=== PATIENT | male | born 1955 | race Caucasian/White ===

== ENCOUNTER 2021-02-22 08:54 | Emergency (ER) | payer OTHER, SELFPAY ==
--- NOTE | ~2021-02-22 | XR_ITS ---
EXAMINATION: XR wrist RT min 3V DATE: 02/22/2021 09:13 INDICATION: Right wrist injury and pain and swelling. TECHNIQUE: 4 views of right wrist were obtained. COMPARISON: None. FINDINGS: There is a nondisplaced transverse fracture of distal radial metaphysis. There is an avulsi on fracture of the ulnar styloid. 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 IMPRESSION: 1. Nondisplaced transverse fracture of distal radial metaphysis. 2. Avulsion fracture of the ulnar styloid. Reviewed, dictated and finalized at location A.
[2021-02-22 09:03] VITALS: BP 151/62; PULSE 66; RESP 18; TEMP 36.1; O2SAT 100
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
[2021-02-22] MEDS: HYDROcodone/acetaminophen (*CRX) 5-325 MG TABLET 1 TAB PO (09:41)
[2021-02-22] MEDS: IBUPROFEN 600 MG TABLET PO (09:41)
== END 2021-02-22 10:00 | disposition home or self-care (01) ==
PROVIDERS: Emergency Provider Emergency Medicine; PCP Family Medicine
DX: S59.291A Other physeal fracture of lower end of radius, right arm, initial encounter for closed fracture (principal); S52.611A Displaced fracture of right ulna styloid process, initial encounter for closed fracture; V18.4XXA Pedal cycle driver injured in noncollision transport accident in traffic accident, initial encounter; Y93.55 Activity, bike riding
CPT/HCPCS: 29125; 73110; 99284; A4565; A9270

== ENCOUNTER 2024-02-16 05:53 | Day surgery (SDC) | payer MEDICARE, SELFPAY ==
[2024-01-10 08:15] VITALS: BMI 27.0
--- NOTE | 2024-02-15 14:49 | WPDANESEPPF ---
Anes - Initial Pre Proc Eval Procedure: Operation Date: 02/16/24 07:30 Proposed Procedures p Diagnostic Colonoscopy - Navjot Briceno MD Date/Time: 02/15/24 14:49 Surgeon: Navjot Briceno MD Pre Op Diagnosis: Personal History of Polyps Patient Data Age: 68 Gender: M Height: 1.83 m Weight: 90.265 kg Allergies Allergy/AdvReac Type Severity Reaction Status Date / Time NKDA Allergy Unknown none Uncoded 02/16/24 06:19 NKFA Allergy Unknown none Uncoded 02/16/24 06:19 Home Medications Medication Instructions Recorded Confirmed Type simvastatin 20 mg tablet See Rx Instructions .Route 06/26/21 02/16/24 Rx .COMPLEX #90 tabs Metamucil 1 tab-cap PO DIRECTED 02/02/24 02/16/24 History flaxseed 1 tab-cap PO DIRECTED 02/02/24 02/16/24 History multivitamin 1 tablet PO DAILY 02/02/24 02/16/24 History Patient hx anesthesia problems: none Family hx anesthesia problems: none Results Review: All pre-operative results and documents have been reviewed as part of the pre-operative evaluation. COUNT INCLUDES THE [facility] Past Medical History Medical History Fracture of right distal radius Fracture of right ulnar styloid Retinal tear (~06/26/19) Right eye Subdural hematoma Oct 2011 Surgical History Surgical History H/O colonoscopy (~09/2013) History of orchiectomy (~1975) S/P LASIK surgery Family History Family History Sibling Carcinoma of colon Other Family history of elevated blood lipids No family history of cardiovascular disease Social History Social History Smoking status: Never smoker Alcohol intake: current Alcohol use details: 2 drinks per day Living arrangements: with family Occupation/Education: retired Gender identity (if verbalized by the patient): Male Anes - Eval Final PreProcedure Day of Procedure 02/15/24 14:49 Patient weight: overweight Heart: regular rate and rhythm Lungs: clear to auscultation Airway: Mallampati scale class II Neurological: alert and oriented Last oral intake: >/= 8 hours ASA classification: III Emergent: no Anesthetic plan: proceed Anesthesia type and monitoring: general GIVS and standard monitoring Results Review: All pre-operative results and documents have been reviewed as part of the pre-operative evaluation. Informed Consent: The patient's anesthetic plan and its attendant risks and benefits were discussed with the patient/family/POA. Questions were solicited and answers provided to the satisfaction of the patient/family/POA.
[2024-02-16 06:22] VITALS: BP 147/77; PULSE 65; RESP 12; TEMP 36.6; O2SAT 99
[2024-02-16] MEDS: LACTATED RINGERS 1,000 ML 150 ML IV CONT (06:31)
--- NOTE | 2024-02-16 07:16 | PM.HPGS ---
History of Present Illness History of Present Illness Consent: Risks, benefits, and alternatives have been discussed and questions answered. Patient agrees to proceed with procedure. Chief complaint: Personal History of Polyps Narrative: Valente Lozano is a 68 year old male presents for screening colonoscopy. Patient has a history of colon polyps. Most recently had an adenomatous polyp removed in 2013. Five years ago no polyps were identified. Patient's family history is significant that his brother, father, grandfather had colon cancer. Several of them at young ages. Patient reports that his current weight appetite and bowel movements are normal. He does have a prior history of prostate cancer he received radiation therapy and he some sense of urgency subsequently. Currently advised to be on high-fiber diet. He has had no bleeding or weight loss. Patient returns for follow-up colonoscopy and should consider this at least every 5 years. Review of Systems Review of Systems: All systems reviewed & are unremarkable except as noted in HPI and below PMFSH Past Medical History Medical History Fracture of right distal radius Fracture of right ulnar styloid Retinal tear (~06/26/19) Right eye Subdural hematoma Oct 2011 Surgical History Surgical History H/O colonoscopy (~09/2013) History of orchiectomy (~1975) S/P LASIK surgery Family History Family History Sibling Carcinoma of colon Other Family history of elevated blood lipids No family history of cardiovascular disease Social History Social History Smoking status: Never smoker Alcohol intake: current Alcohol use details: 2 drinks per day Living arrangements: with family Occupation/Education: retired Gender identity (if verbalized by the patient): Male Meds Home Medications and Allergies Home Medications Medication Instructions Recorded Confirmed Type simvastatin 20 mg tablet See Rx Instructions .Route 06/26/21 02/16/24 Rx .COMPLEX #90 tabs Metamucil 1 tab-cap PO DIRECTED 02/02/24 02/16/24 History flaxseed 1 tab-cap PO DIRECTED 02/02/24 02/16/24 History multivitamin 1 tablet PO DAILY 02/02/24 02/16/24 History Allergies Allergy/AdvReac Type Severity Reaction Status Date / Time NKDA Allergy Unknown none Uncoded 02/16/24 06:19 NKFA Allergy Unknown none Uncoded 02/16/24 06:19 Vital Signs Vital Signs - 24 hr 02/16/24 06:22 Temperature 98 F Pulse Rate 65 Respiratory Rate 12 Blood Pressure 147/77 H Pulse Oximetry 99 Oxygen Delivery Room Air Exam Narrative: Physical exam reveals patient to be alert. Signs stable. HEENT exam is unremarkable. Is anicteric. Lungs are clear to auscultation and to percussion. Heart is without murmur or extra sounds. Abdomen bowel sounds are present soft nontender with no organomegaly. Digital external rectal exam is normal. Assessment and Plan Assessment and plan (1) Family hx of colon cancer: Code(s): Z80.0 - Family history of malignant neoplasm of digestive organs Status: Acute Assessment and Plan: Patient has a strong family history of several family members that her close relatives with colon cancer. Plan for surveillance colonoscopy at least every 5 years. (2) History of colon polyps: Code(s): Z86.010 - Personal history of colonic polyps Status: Acute Assessment and Plan: Patient has had adenomatous colon polyps. Most recently in 2013. Continue surveillance at 5 year intervals.
[2024-02-16 07:48] VITALS: BP 96/68; PULSE 63; RESP 14; O2SAT 95
[2024-02-16 07:58] VITALS: BP 103/70; PULSE 64; RESP 14; O2SAT 97
[2024-02-16 08:08] VITALS: BP 109/78; PULSE 61; RESP 16; O2SAT 96
--- NOTE | 2024-02-16 14:09 | WPDANESPN ---
Anes - Prog Note Post-Op Date/Time: 02/16/24 14:09 Cardiovascular status: normal Respiratory status: normal Airway patency: baseline Mental status: baseline Post-Op hydration status: normal Vital Signs: Last Vital Signs Temp 36.6 C 02/16/24 06:22 Pulse 61 02/16/24 08:08 Resp 16 02/16/24 08:08 BP 109/78 02/16/24 08:08 Pulse Ox 96 02/16/24 08:08 O2 Del Method Room Air 02/16/24 08:08 Pain Score (VAS): 0 I/O: Intake & Output 02/15/24 02/16/24 02/16/24 23:59 07:59 15:59 Intake Total 400 50 Balance 400 50 Post-procedural complaints: none Patient Feedback: Patient satisfied with anesthetic care. Other Findings: Patient vital signs back to baseline. Patient denies nausea and vomiting. Patient's pain under control. Patient OK for discharge.
== END 2024-02-16 08:12 | disposition home or self-care (01) ==
PROVIDERS: PCP Hospitalist; Visit Provider Internal Medicine Gastroenterology
PROC: 0DJD8ZZ Inspection of Lower Intestinal Tract, Via Natural or Artificial Opening Endoscopic (ICD-10-PCS; CPT 45378; principal; 2024-02-16 07:30)
DX: Z86.010 Personal history of colon polyps (principal); Z80.0 Family history of malignant neoplasm of digestive organs; D12.2 Benign neoplasm of ascending colon
CPT/HCPCS: 45385

== ENCOUNTER 2024-02-16 07:00 | Outpatient (NON) | payer MEDICARE, SELFPAY | END 2024-02-16 07:01 | disposition home or self-care (01) | LOC: ANHLAB 02-17 08:16 | PROVIDERS: PCP Hospitalist; Visit Provider Internal Medicine Gastroenterology | DX: Z12.11 Encounter for screening for malignant neoplasm of colon (principal); Z80.0 Family history of malignant neoplasm of digestive organs | CPT/HCPCS: 88305 ==

== ENCOUNTER 2024-06-25 07:26 | Outpatient (CLI) | payer MEDICARE, SELFPAY ==
--- NOTE | ~2024-06-25 | PE_ITS ---
EXAMINATION: PET_PETPSMAST_PT DATE: 06/25/2024 10:23 INDICATION: Prostate cancer. TECHNIQUE: 5.5 mCi of Ga-68 gozetotide was administered intravenously. Low dose computed tomography ( CT) images were acquired from the base of the brain to the proximal thighs for attenuation correction and anatomic localization. Automated exposure control was employed. Dose-length product (DLP) was 11 25 mGy-cm. Positron emission tomography (PET) images were acquired in the same distribution. COMPARISON: None FINDINGS: Head/neck: Left parotid gland is absent, which may be severe fatty atrophy or surgical change. There are no pathologically enlarged lymph nodes. Chest: There is a lipoma in the right posterior thorax. There is no pneumonia or pleural effusion. Th e heart size is normal. No pericardial effusion. There are coronary artery calcifications. Abdomen/pelvis/proximal thighs: There are cysts in the liver measuring up to 2.0 cm. The spleen, gall bladder, pancreas, adrenal glands, and kidneys are normal. The prostate is mildly enlarged. There are brachytherapy seeds in the prostate. There is no increased activity in the prostate. There is diffus e wall thickening of bladder, likely from chronic outlet obstruction. There are no dilated loops of b owel. The appendix is normal. There are no pathologically enlarged lymph nodes. There is no free intr aperitoneal fluid. There are likely changes of right orchiectomy. There is a benign bone island in le ft ilium. IMPRESSION: 1. Mildly enlarged prostate containing brachytherapy seeds. No increased activity to suggest malignan cy. Reviewed, dictated and finalized at location A. IMPRESSION: 1. Mildly enlarged prostate containing brachytherapy seeds. No increased activi ty to suggest malignancy.
== END 2024-06-25 07:27 | disposition home or self-care (01) ==
PROVIDERS: PCP Hospitalist; Visit Provider Urology
DX: C61 Malignant neoplasm of prostate (principal)
CPT/HCPCS: 78815; A9596

== ENCOUNTER 2024-12-21 09:10 | Outpatient (CLI) | payer MEDICARE, SELFPAY ==
--- OUTSIDE RECORDS SUMMARY | 2024-12-21 09:47 | XMS_ITS | Clinical Summary ---
Author Organization [facility] [employer] Address [address] [place] [address] Care Team Providers Care Mill Tender Warm Up Name Role Phone Antonio Rose MD Primary Care Provider [phone] Source Comments [facility] [employer],non-owned Affiliates and Associated Physician Practices is amultiple site organization consisting of ambulatory clinics and hospital sitesin [place], [place], [place] and [place]. This disclosure is being madepursuant to the Care Everywhere program and may not contain all information available regarding this patient. Last updated 18.[facility] [employer] Social History Tobacco Use Types Packs/Day Years Used Date Smoking Tobacco: Never Assessed Sex and Gender Information Value Date Recorded Sex Assigned at Not on file Gender Identity Not on file Sexual Orientation Not on file Plan of Treatment Health Maintenance Due Date Last Done Comments COLOGUARD (AGES 45-75) - COL ON CA SCREENING 1954 COLON MONITORING 1954 COLONOSCOPY - COLON CA SCREENING 1954 CT COLONOGRAPHY - COLON CA SCREENING 1954 Colorectal Cancer Screening 1954 FIT - COLON CA SCREENING 1954 FLEX SIG - COLON CA SCREENING 1954 LIPID TESTING 1954 MEDICARE AWV 12 MONTHS 1954 HEPATITIS C SCREENING 08/22/1972 DTAP/TDAP/TD VACCINES (1 - Tdap) 1973 PNEUMOCOCCAL VACCINE 50+ (1 of 1 - PCV) 2004 ZOSTER VACCINE (1 of 2) 2004 COVID-19 VACCINE ( - 2023-2 5 season) 2024 INFLUENZA VACCINE (#1) 2024 DEPRESSION SCREENING 09/26/2024 Respiratory Syncytial Virus (RSV) Vaccine Pt: or over 60 yrs (1 - 1-dose 75+ series) 2029 HEPATITIS B VACCINE Aged Out No longe r eligible based on patient's age to complete this topic HIB VACCINE Aged Out No longer eligi ble based on patient's age to complete this topic HPV VACCINE Aged Out No longer eligi ble based on patient's age to complete this topic MENINGOCOCCAL (Group B) VACC INE SHARED DECISION-MAKING Aged Out No longer eligibl e based on patient's age to complete this topic MENINGOCOCCAL GROUPS A/C/Y/W VACCINE Aged Out No longer eligible b ased on patient's age to complete this topic Care Teams Mill Tender Warm Up Relationship Specialty Start Date End Date Antonio Rose MD [address] [place] [address] PCP - General 08/12/20
--- OUTSIDE RECORDS SUMMARY | 2024-12-21 09:47 | XMS_ITS | Encounter Summary ---
Author Organization [facility] Address [address] [place] [address] Care Team Providers Care Ibm Bpm Developer Name Role Phone Antonio Rose MD Primary Care Provider [phone] Encounter Details Date Type Department Care Team (Late st Contact Info) Description 08/13/2020 Lab Requisition [facility] Derm[facility] Lab [address] [place] [id number] Ha Le MD [address] [place] [address] Social History Tobacco Use Types Packs/Day Years Used Date Smoking Tobacco: Never Assessed Sex and Gender Information Value Date Recorded Sex Assigned at Not on file Gender Identity Not on file Sexual Orientation Not on file documented as of this encounter Plan of Treatment Not on file documented as of this encounter Procedures Procedure Name Priority Date/Time Associated Diagnosis Comments DERMATOPATHOLOGY Routine 08/11/2020 12:0 0 AM DIET CLERK documented in this encounter Results * DERMATOPATHOLOGY (08/11/2020 12:00 AM DIET CLERK) Case Report Dermatopathology Report Case: [id number] Authorizing Provider: Ha eL MD Collected: 08/11/2020 12:00 AM Ordering Location: [facility]erm[facility] Lab Received: 08/13/2020 06:12 AM Pathologist: Reina Mario MD Specimens: A) - Skin, right ala B) - Skin, right medial clavicle 0 4:47 PM DIET CLERK DERMATOPATHOLOGY LABORATORY Final Diagnosis Specimen A. SKIN, right ala: HYPERPLASTIC (HYPERTROPHIC) ACTINIC KERATOSIS WITH ASSOCIATED HUMAN PAPILLOMA VIRUS CHANGES; EXTENDING TO THE BASE OF THE SPECIMEN (L57.0) (see microscopic description and comment) Specimen B. SKIN, right medial clavicle: BASAL CELL CARCINOMA, NODULAR TYPE (C44.519) 0 4:47 PM [facility] DERMATOPATHOLOGY LABORATORY Clinical History A: Basal cell carcinoma vs squamous cell carcinoma vs other. Path # [id number]. B: Basal cell carcinoma vs squamou scell carcinoma vs other. Path # [id number] 0 4:47 PM [facility] DERMATOPATHOLOGY LABORATORY Gross Description Specimen A: Received is one formalin filled container labeled with the patient's name and designated right ala. The specimen consists of a shave biopsy measuring [id number]. Jar 0. Specimen B: Received is one formalin filled container labeled with the patient's name and designated right medial clavicle. The specimen consists of a shave biopsy measuring [id number]. Jar 0. 0 4:47 PM [facility] DERMATOPATHOLOGY LABORATORY Microscopic Description Specimen A. SKIN, right ala: There is hyperkeratosis alternating with parakeratosis. There is epidermal hyperplasia with disorderly maturation of keratinocytes with nuclear pleomorphism confined to the lower half of the epidermis. This process extends to the base of the specimen. COMMENT: A squamous cell carcinoma cannot be ruled out. Additional deeper sections were obtained and reviewed. Specimen B. SKIN, right medial clavicle: Within the dermis there are aggregates of basaloid cells with a high nuclear to cytoplasmic ratio and peripheral palisading. 0 4:47 PM [facility] DERMATOPATHOLOGY LABORATORY Disclaimer An external and internal positive and negative controls are appropriate for the histochemical, immunohistochemical and immunofluorescence stain(s) in this case (if any), except where stated explicitly. The performance characteristics of the stain(s) cited in this report were developed and its performance characteristic determined by the Dermatopathology Laboratory at [facility], directed by Dr. Ismael Mario. These tests need not be, and therefore are not, approved by the [place] Food and Drug Administration. The tests are used for clinical purposes. Billing Codes Specimen Charges Stain Charges 44645 04362 1 1 0 4:47 PM [facility] DERMATOPATHOLOGY [facility]ORATORY Embedded Images 0 4:47 PM [facility] DERMATOPATHOLOGY LABORATORY Pathology/Cytology TISSUE SPECIMEN FROM SKIN / Unknown 08/11/2020 08/13/2020 6:12 AM DIET CLERK Miscellaneous samples (specimen) TISSUE SPECIMEN FROM SKIN / Unknown 08/11/2020 08/13/2020 6:12 AM DIET CLERK Ha Le MD LAB - PATHOLOGY/CYTO LOGY ORDERABLES DERMATOPATHOLOGY LABORATORY [facility] - Department of Dermatology [facility] Medicine [address] [place] [address], [address] [phone] documented in this encounter Visit Diagnoses Not on filedocumented in this encounter Care Teams Ibm Bpm Developer Relationship Specialty Start Date End Date Antonio Rose MD [address] [place] [address] PCP - General 08/12/20 documented as of this encounter
--- OUTSIDE RECORDS SUMMARY | 2024-12-21 09:47 | XMS_ITS | Encounter Summary ---
Author Organization [facility] Address [address] [address] Care Team Providers Care Senior Sas Developer Name Role Phone Antonio Rose MD Primary Care Provider [phone] Encounter Details Date Type Department Care Team (Late st Contact Info) Description 04/08/2021 Lab Requisition [facility] DermPath Lab [address] [place] [address] Ha Le MD [address] [address] Social History Tobacco Use Types Packs/Day Years Used Date Smoking Tobacco: Never Assessed Sex and Gender Information Value Date Recorded Sex Assigned at Not on file Gender Identity Not on file Sexual Orientation Not on file documented as of this encounter Plan of Treatment Not on file documented as of this encounter Procedures Procedure Name Priority Date/Time Associated Diagnosis Comments DERMATOPATHOLOGY Routine 04/06/2021 3:33 AM CDT documented in this encounter Results * DERMATOPATHOLOGY (04/06/2021 3:33 AM CDT) Case Report Dermatopathology Report Case: [id number] Authorizing Provider: Ha Le MD Collected: 04/06/2021 03:33 AM Ordering Location: [facility] DermPath Lab Received: 04/08/2021 05:40 AM Pathologist: Reina Mario MD Specimen: Skin, right crown 4:52 PM CDT DERMATOPATHOLOGY LABORATORY Final Diagnosis Specimen A. SKIN, right crown: HYPERPLASTIC (HYPERTROPHIC) ACTINIC KERATOSIS (L57.0) OVERLYING CUTANEOUS HORN (L85.8) 07/15/202 1 4:52 PM CDT DERMATOPATHOLOGY LABORATORY Clinical History AK vs BCCA vs SCCA. Path # [id number]. 4:52 PM CDT DERMATOPATHOLOGY LABORATORY Gross Description Specimen A: Received is one formalin filled container labeled with the patient's name and designated right crown. The specimen consists of a shave biopsy measuring [id number]. Jar 0. 4:52 PM CDT DERMATOPATHOLOGY LABORATORY Microscopic Description Specimen A. SKIN, right crown: There is hyperkeratosis alternating with parakeratosis. There is epidermal hyperplasia with disorderly maturation of keratinocytes with nuclear pleomorphism confined to the lower half of the epidermis. There is a column of marked compact hyperkeratosis. 4:52 PM CDT DERMATOPATHOLOGY LABORATORY Disclaimer An external and internal positive and negative controls are appropriate for the histochemical, immunohistochemical and immunofluorescence stain(s) in this case (if any), except where stated explicitly. The performance characteristics of the stain(s) cited in this report were developed and its performance characteristic determined by the Dermatopathology Laboratory at [facility], directed by Dr. Ismael Mario. These tests need not be, and therefore are not, approved by the [place] Food and Drug Administration. The tests are used for clinical purposes. Billing Codes Specimen Charges Stain Charges 83259 1 4:52 PM CDT DERMATOPATHOLOGY LABORATORY Embedded Images 4:52 PM CDT DERMATOPATHOLOGY LABORATORY Pathology/Cytolo gy TISSUE SPECIMEN FROM SKIN / Unknown 04/06/2021 3:33 AM CDT 04/08/2021 5:40 AM CDT Ha Le MD LAB - PATHOLOGY/CYTO LOGY ORDERABLES DERMATOPATHOLOGY LABORATORY [facility] - Department of Dermatology [address], [address] [phone] documented in this encounter Visit Diagnoses Not on filedocumented in this encounter Care Teams Senior Sas Developer Relationship Specialty Start Date End Date Antonio Rose MD [address] [place] [address] PCP - General 08/12/20 documented as of this encounter
--- OUTSIDE RECORDS SUMMARY | 2024-12-21 09:47 | XMS_ITS | Referral Summary ---
Author Organization [facility] Address [address] [place] [address] Care Team Providers Care Energy Efficiency Specialist Name Role Phone Winsome Garcia MD Primary Care Pro vider Encounters Date Type Department Care Team Description 11/15/2024 1:21 PM LINOLEUM LAYER - 11/15/2024 11:59 PM LINOLEUM LAYER Hospital Encounter [facility] - PET [address] [place] [address] Prostate cancer (HCC) Discharge Disposition: Discharge to home or self care 11/15/2024 1:21 PM LINOLEUM LAYER - 11/15/2024 11:59 PM LINOLEUM LAYER Hospital Encounter [facility] - PET [address] [place] [address] Discharge Disposition: Discharge to home or self care from Last 3 Months Allergies No known active allergies Medications multivitamin capsule Take 1 capsule by mouth daily Active flaxseed oiL 1,000 mg capsule Take by mouth Active psyllium, aspartame, SF (METAMUCIL SF) 3.4 gram packet Take 1 packet by mouth daily Active simvastatin (ZOCOR) 20 mg tabletIndications:M ixed hyperlipidemia TAKE 1 TABLET BY MOUTH EVERY DAY 90 tablet 1 4 Active Active Problems Problem Noted Date Diagnosed Date Pre-diabetes 07/10/2024 Assessment & Plan (07/10/2024 1:14 PM CDT): Lab Results Component Value Date HGBA1C 6.0 (H) 07/04/2024 Uncontrolled/new diagnosis Discussed diet/exercise Recheck before next appointment Encounter for annual wellnes s visit (AWV) in Medicare patient 05/17/2022 Assessment & Plan (07/10/2024 1:44 PM CDT): Reviewed PMH & PHQ Screening PHQ-2 Total Score (If total score is 3 or more points, staff should administer the PHQ-9): 0 Hearing/vision screening reviewed, referrals placed as needed Fall risk reviewed Reviewed medications and supplements Specialists: urology, core composer machine tender, & optho no evidence of cognitive impairment HCM: orders placed as needed Assessment & Plan (06/03/2023 8:46 AM CDT): Reviewed PMH & PHQ Screening PHQ-2 Total Score (If total score is 3 or more points, staff should administer the PHQ-9): 0 Hearing/vision screening reviewed, referrals placed as needed Fall risk reviewed Reviewed medications and supplements Specialists: urology, radiation oncology, core composer machine tender, & optho no evidence of cognitive impairment HCM: orders placed as needed Assessment & Plan (05/17/2022 1:28 PM CDT): Reviewed PMH & PHQ Screening PHQ-2 Total Score (If total score is 3 or more points, staff should administer the PHQ-9): 0 Hearing/vision screening reviewed, referrals placed as needed Fall risk reviewed Reviewed medications and supplements Specialists: urology, core composer machine tender, orthopedics & optho no evidence of cognitive impairment HCM: orders placed as needed Elevated glucose 11/17/2021 Assessment & Plan (06/03/2023 8:39 AM CDT): stable Assessment & Plan (11/26/2022 3:26 PM LINOLEUM LAYER): Rechekc a1c Assessment & Plan (05/17/2022 12:59 PM CDT): Lab Results Component Value Date HGBA1C 5.7 (H) 05/11/2022 Improved Continue to monitor History of vitreous hemorrhage of right eye 01/2019 Assessment & Plan (07/31/2019 12:35 PM LINOLEUM LAYER): F/u from ED on 07/23/19. Slowly improving though still dense vitreous (vit) heme centrally - vision stable from last visit - superotemporal tear with adequate laser surrounding, no subretinal fluid around tear or retinal detachment - recommend follow-up in 4 weeks to assess how vitreous (vit) heme is settling - pt has scheduled appointment with media assistant in early August (about one month). Plans to continue following up there. - will RTC with us as needed Mixed hyperlipidemia 12/24/2011 Assessment & Plan (07/10/2024 1:44 PM CDT): LDL uncontrolled >100 Motivated to work on diet continue statin Recheck before next appointment Assessment & Plan (01/02/2024 1:52 PM CDT): LDL controlled <100 Continue statin Assessment & Plan (06/03/2023 8:39 AM CDT): Stable Continue statin Assessment & Plan (11/26/2022 5:15 PM LINOLEUM LAYER): Recheck lipids Continue statin pending results Discussed diet Assessment & Plan (05/17/2022 12:58 PM CDT): Reviewed lipids, LDL mildly above goal Discussed diet/exercise Continue simvastatin Continue to monitor Assessment & Plan (11/17/2021 1:39 PM LINOLEUM LAYER): Lipids at goal LFT within normal limits Continue simvastatin Prostate cancer Assessment & Plan (07/10/2024 1:45 PM CDT): Following with urology Assessment & Plan (01/02/2024 1:52 PM CDT): Following with urology & radiation oncology Assessment & Plan (06/03/2023 8:45 AM CDT): Following with urology & radiation oncology Assessment & Plan (11/26/2022 3:27 PM LINOLEUM LAYER): Following with urology Assessment & Plan (05/17/2022 12:57 PM CDT): Following with urology Assessment & Plan (11/17/2021 1:36 PM LINOLEUM LAYER): Following with urology Arthritis of big toe Assessment & Plan (01/02/2024 1:52 PM CDT): stable Assessment & Plan (06/03/2023 8:46 AM CDT): stable Assessment & Plan (11/26/2022 3:26 PM LINOLEUM LAYER): Following with orthopedics Assessment & Plan (05/17/2022 12:58 PM CDT): Following with orthopedics Assessment & Plan (11/17/2021 1:37 PM LINOLEUM LAYER): Stable Following with orthopedics History of skin cancer Assessment & Plan (07/10/2024 1:13 PM CDT): Following with core composer machine tender Assessment & Plan (01/02/2024 1:52 PM CDT): Following with core composer machine tender Assessment & Plan (06/03/2023 8:39 AM CDT): Following with core composer machine tender Assessment & Plan (11/26/2022 3:26 PM LINOLEUM LAYER): Following with core composer machine tender Assessment & Plan (05/17/2022 12:57 PM CDT): Following with core composer machine tender Assessment & Plan (11/17/2021 1:37 PM LINOLEUM LAYER): Following with derm Resolved Problems Problem Noted Date Diagnosed Date Resolved Date Subdural hematoma (CMS/HCC) 11/22/2011 11/16/2021 Immunizations Immunization Administration Dates Next Due Influenza, Quad, Adjuvantate d, Intramuscular 09/05/2023,07/07/2021 Influenza, Quadrivalent, Hig h Dose, Preservative Free, Intrr 06/19/2022,06/26/2020 Influenza, Quadrivalent, Spl it, Intramuscular 06/25/2019 Influenza, Quadrivalent, Spl it, Preservative Free, Intramuscular 06/25/2019,07/11/2018 Influenza, Trivalent, High D ose, Split, Preservative Free, Intramuscular 07/10/2024 Influenza, Trivalent, IM (MDV) 06/29/2017,2013,06/26/2013 Influenza, Trivalent, Preser vative Free, Intramuscular 06/01/2017,06/23/2016,06/04/2015 Influenza, Unspecified 06/26/2021 Pfizer SARS-CoV-2 Monovalent Vaccination (12+ Yrs) PURPLE 07/31/2021,12/17/2020,11/19/2020 Pneumococcal Conjugate PCV 13 08/19/2020 Pneumococcal Polysaccharide PPV23 05/17/2022 Social History Tobacco Use Types Packs/Day Years Used Date Smoking Tobacco: Never Cigarettes Smokeless Tobacco: Never Tobacco Cessation:Counseling Given: Not Answered AUDIT-C Answer Date Recorded Q1: How often do you have a drink containing alcohol? 4 or more times a week 07/10/2024 Average Number of Drinks Not on file 024 Frequency of Binge Drinking Not on file 06/26 PHQ-2 Answer Date Recorded PHQ-2 Total Score (If total score is 3 or more points, staff should administer the PHQ-9) 0 07/10/2024 Sex and Gender Information Value Date Recorded Sex Assigned at Not on file Legal Sex Male 9:49 AM LINOLEUM LAYER Gender Identity Not on file Sexual Orientation Not on file Last Filed Vital Signs Vital Sign Reading Time Taken Comments Blood Pressure 130/78 07/10/2024 1:03 PM CDT Pulse 68 07/10/2024 1:03 PM CDT Temperature 36.1 C (97 F) 07/10/2024 1:03 PM CDT Respiratory Rate 18 07/10/2024 1:03 PM CDT Oxygen Saturation 98% 07/10/2024 1:03 PM CDT Inhaled Oxygen Concentration - - Weight 89.9 kg (198 lb 3.2 oz) 07/10/2024 1:03 P M CDT Height 182.9 cm (6') 07/10/2024 1:03 PM CDT Body Mass Index 26.88 07/10/2024 1:03 PM CDT Plan of Treatment Not on file Procedures Procedure Name Priority Date/Time Associated Diagnosis Comments PET/CT PROSTATE CANCER PSMA SKULL TO THIGH Schedule Routine, Read Routine (OP Routine) 11/15/2024 4:17 PM LINOLEUM LAYER Prostate cancer (HCC) HEPATITIS C ANTIBODY Routine 07/04/2024 7:16 AM CDT Need for hepatitis C screening test Annual physical exam HM COLONOSCOPY Routine 02/16/2024 from Last 3 Months or Most Recently Relevant to Health Maintenance Results * PET/CT Prostate Cancer PSMA Skull to Thigh (11/15/2024 4:17 PM LINOLEUM LAYER) Anatomical Region Laterality Modality N/A Positron Emissio n Tomography (PET) 11/15/2024 4:27 PM LINOLEUM LAYER Impressions 11/15/2024 5:35 PM LINOLEUM LAYER 1. Multiple intensity PSMA expressing osseous metastatic lesions involving the right humeral neck, right parietal calvarium, cervical thoracic spine, right 1st rib, right coracoid process, and right iliac. 2. No evidence of extraosseous PSMA expressing disease. Dictated by: Ranjeet Bowman MD The radiology attending physician has personally reviewed this study, and had reviewed and/or edited this written report and agrees with it. Electronically signed by: Romana Villegas MD, Ph.D Narrative 11/15/2024 5:35 PM LINOLEUM LAYER EXAMINATION: PSMA-PET/CT DATE OF STUDY: 11/15/2024 SCANNER: [facility] [employer] (SQ1). This is a high-resolution scanner, which can result in higher SUVs (and even detection of previously unrecognized small lesions) compared to older scanners. RADIOPHARMACEUTICAL: 10.587 mCi F-18 DCFPyL (Piflufolastat) i.v. Injection site: Right antecubital fossa HISTORY: 69-year-old man with prostate cancer diagnosed in 2019 (Broadway score of 6) status post treatment under active surveillance from 7334-1663, with rising PSA, most recently 38.8 ng/mL. The study is requested for restaging of documented biochemically recurrent prostate cancer. Subsequent treatment strategy. TECHNIQUE: After intravenous administration of tracer, noncontrast CT images were obtained for attenuation correction and for fusion with emission PET images to allow for anatomical localization of PET findings. Emission PET images were then obtained. The study was interpreted on the Lettuce workstation. The total scanned area was mid thighs to skull vertex. Images of the body were obtained starting 69 minutes after injection of tracer. REFERENCE TISSUE MAXIMUM SUVs: Parotid gland 16.1; Liver 6.1; Blood pool 1.9 Focal PSMA tracer uptake is graded as follows: * Faint: above background to blood pool * Mild: above blood pool to liver * Moderate: above liver to salivary glands * Intense: similar to or above salivary glands COMPARISON: PET/CT dated 03/07/2023. FINDINGS: Prostate/Prostate bed: Fiducial markers are present within the prostate. No abnormal tracer uptake seen. Regional lymph nodes: No abnormal tracer uptake seen. Extra-pelvic lymph nodes: No abnormal tracer uptake seen. Bone: There are several osseous lesions throughout the imaged axial and appendicular skeleton with associated intense uptake. For reference, there is a sclerotic lesion within the right humeral neck with intense uptake (image 80). There is a lytic involving the right parietal calvarium (image 18). A sclerotic lesion involving the posterior C1 vertebral body (image 59). Additional sclerotic lesions involving the right 1st rib and, T5 vertebral body and posterior elements, right coracoid process, and right iliac bone. Visceral: No abnormal tracer uptake seen. Additional CT findings: Dependent atelectasis within the lung bases. Cyst within the left hemiliver. Diverticulosis without evidence of diverticulitis. Degenerative changes of the spine. Procedure Note Romana Millan MD PhD - 11/15/2024 EXAMINATION: PSMA-PET/CT DATE OF STUDY: 11/15/2024 SCANNER: [facility] [employer] (SQ1). This is a high-resolution scanner, which can result in higher SUVs (and even detection of previously unrecognized small lesions) compared to older scanners. RADIOPHARMACEUTICAL: 10.587 mCi F-18 DCFPyL (Piflufolastat) i.v. Injection site: Right antecubital fossa HISTORY: 69-year-old man with prostate cancer diagnosed in 2019 (Ashley score of 6) status post treatment under active surveillance from 1382-5167, with rising PSA, most recently 38.8 ng/mL. The study is requested for restaging of documented biochemically recurrent prostate cancer. Subsequent treatment strategy. TECHNIQUE: After intravenous administration of tracer, noncontrast CT images were obtained for attenuation correction and for fusion with emission PET images to allow for anatomical localization of PET findings. Emission PET images were then obtained. The study was interpreted on the [employer] workstation. The total scanned area was mid thighs to skull vertex. Images of the body were obtained starting 69 minutes after injection of tracer. REFERENCE TISSUE MAXIMUM SUVs: Parotid gland 16.1; Liver 6.1; Blood pool 1.9 Focal PSMA tracer uptake is graded as follows: * Faint: above background to blood pool * Mild: above blood pool to liver * Moderate: above liver to salivary glands * Intense: similar to or above salivary glands COMPARISON: PET/CT dated 03/07/2023. FINDINGS: Prostate/Prostate bed: Fiducial markers are present within the prostate. No abnormal tracer uptake seen. Regional lymph nodes: No abnormal tracer uptake seen. Extra-pelvic lymph nodes: No abnormal tracer uptake seen. Bone: There are several osseous lesions throughout the imaged axial and appendicular skeleton with associated intense uptake. For reference, there is a sclerotic lesion within the right humeral neck with intense uptake (image 80). There is a lytic involving the right parietal calvarium (image 18). A sclerotic lesion involving the posterior C1 vertebral body (image 59). Additional sclerotic lesions involving the right 1st rib and, T5 vertebral body and posterior elements, right coracoid process, and right iliac bone. Visceral: No abnormal tracer uptake seen. Additional CT findings: Dependent atelectasis within the lung bases. Cyst within the left hemiliver. Diverticulosis without evidence of diverticulitis. Degenerative changes of the spine. IMPRESSION: 1. Multiple intensity PSMA expressing osseous metastatic lesions involving the right humeral neck, right parietal calvarium, cervical thoracic spine, right 1st rib, right coracoid process, and right iliac. 2. No evidence of extraosseous PSMA expressing disease. Dictated by: Ranjeet Bowman MD The radiology attending physician has personally reviewed this study, and had reviewed and/or edited this written report and agrees with it. Electronically signed by: Romana Villegas MD, Ph.D us Urbano Kent MD IMG PET PROCEDURES Final Re sult * Hepatitis C antibody Blood (07/04/2024 7:16 AM CDT) Hep C Ab Nonreactive Nonreactive Comment: Antibodies to HCV not detected. Does NOT exclude the possibility of recent exposure to HCV. Current interpretive data was last revised on 22 Interpretive Data Nonreactive: Antibodies to HCV not detected. Does NOT exclude the possibility of recent exposure to HCV. Equivocal: Equivocal for HCV antibodies. Supplemental molecular testing will be automatically performed to determine infection status in accordance with current CDC screening recommendations. Reactive: Positive for HCV antibodies. This may represent current or past HCV infection. Supplemental molecular testing will be automatically performed to determine current infection status in accordance with current CDC screening recommendations. Interpretive data was last revised on 2019. Blood 07/04/2024 7:16 AM CDT 07/04/2024 12:51 PM CDT Winsome Garcia MD LAB MICROBIOLOGY - GENERAL ORDERABLES Final Result [id number] [address] [facility] Department [place] [address] * HM COLONOSCOPY (02/16/2024) Historical Provider HEALTH MAINTENANCE Final Result from Last 3 Months or Most Recently Relevant to Health Maintenance Insurance MEDICARE [facility] MEDICARE [facility] MEDICARE AARP Care Teams Energy Efficiency Specialist Relationship Specialty Start Date End Date Winsome Garcia MD PCP - General Family Medicine 11/16/21
--- OUTSIDE RECORDS SUMMARY | 2024-12-21 09:47 | XMS_ITS | Encounter Summary ---
Author Organization [facility] Healthcare Address [address] [place] [address] Care Team Providers Care Healthcare Administrative Assistant Name Role Phone Antonio Rose MD Primary Care Provider [phone] Winsome Garcia MD Primary Care Pro vider Encounter Details Date Type Department Care Team (Latest Contact Info) Description 07/23/2019 Ophth Exam Ophthalmology Poncho Singleton MD [address] [place] [address] Social History Tobacco Use Types Packs/Day Years Used Date Smoking Tobacco: Never Sex and Gender Information Value Date Recorded Sex Assigned at Not on file Legal Sex Male 9:49 AM [employer]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 Gender Identity Not on file Sexual Orientation Not on file documented as of this encounter Plan of Treatment Not on file documented as of this encounter Visit Diagnoses Not on filedocumented in this encounter Eye Exam Visual Acuity Right eye Left eye Near sc 20/50-1 20/20 Tonometry (9:54 AM) Right eye Left eye Pressure 6 10 Pupils Dark Light Shape React APD Right eye 4 2 Round Brisk None Left eye 4 2 Round Brisk None Visual [place] Right eye Left eye Full Full Dilation Both eyes: 1% Tropicamide, 2 .5% Phenylephrine @ 9:54 AM External Exam Right eye Left eye External Normal Normal Slit Lamp Exam Right eye Left eye Lids/Lashes Normal Normal Conjunctiva/Sclera White and quiet White and aime et Cornea Clear Clear Anterior Chamber Deep, formed Deep, formed Iris Round and reactive Round and estrella ctive Lens trace NS, trace CS trace NS, tra ce CS Vitreous dense central vit heme Normal Fundus Exam Right eye Left eye Disc hazy view but sharp margins, vis ible around heme Normal C/D Ratio 0.2 0.3 Macula hazy view but appears flat and a ttached Normal Vessels bridging vessel involved in tear superotemporally Normal Periphery pre-retinal heme connor ally. Superotemporal tear with surrounding laser CRS temporally Care Teams Healthcare Administrative Assistant Relationship Specialty Start Date End Date Antonio Rose MD [address] [place] [address] PCP - General 01/10/18 11/15/21 Winsome Garcia MD [address] [place] [address] PCP - General Family Medicine 11/16/21 documented as of this encounter
--- OUTSIDE RECORDS SUMMARY | 2024-12-21 09:47 | XMS_ITS | Clinical Summary ---
Author Organization [facility] Address [address] [place] [address] Care Team Providers Care Coding Quality Coordinator Name Role Phone Winsome Garcia MD Primary Care Pro vider Allergies No known active allergies Medications multivitamin [...] reviewed Reviewed medications and supplements Specialists: urology, qa manager, & optho no evidence of cognitive impairment HCM: orders placed as needed Assessment & Plan (06/03/2023 8:46 AM CDT): Reviewed PMH & FH PHQ Screening PHQ-2 Total Score (If total score is 3 or more points, staff should administer the PHQ-9): 0 Hearing/vision screening reviewed, referrals placed as needed Fall risk reviewed Reviewed medications and supplements Specialists: urology, radiation oncology, qa manager, & optho no evidence of cognitive impairment HCM: orders placed as needed Assessment & Plan (05/17/2022 1:28 PM CDT): Reviewed PMH & FH PHQ Screening PHQ-2 Total Score (If total score is 3 or more points, staff should administer the PHQ-9): 0 Hearing/vision screening reviewed, referrals placed as needed Fall risk reviewed Reviewed medications and supplements Specialists: urology, qa manager, orthopedics & optho no evidence of cognitive impairment HCM: orders placed as needed Elevated glucose 11/17/2021 Assessment & Plan (06/03/2023 8:39 AM CDT): stable Assessment & Plan (11/26/2022 3:26 PM BEE RAISER): Rechekc a1c Assessment & Plan (05/17/2022 12:59 PM CDT): Lab Results Component Value Date HGBA1C 5.7 (H) 05/11/2022 Improved Continue to monitor History of vitreous hemorrhage of right eye 01/2019 Assessment & Plan (07/31/2019 12:35 PM BEE RAISER): F/u from ED on 07/23/19. Slowly improving though still dense vitreous (vit) heme centrally - vision stable from last visit - superotemporal tear with adequate laser surrounding, no subretinal fluid around tear or retinal detachment - recommend follow-up in 4 weeks to assess how vitreous (vit) heme is settling - pt has scheduled appointment with senior vice president in early August (about one month). Plans [...] statin Assessment & Plan (11/26/2022 5:15 PM BEE RAISER): Recheck lipids Continue statin pending results Discussed diet Assessment & Plan (05/17/2022 12:58 PM CDT): Reviewed lipids, LDL mildly above goal Discussed diet/exercise Continue simvastatin Continue to monitor Assessment & Plan (11/17/2021 1:39 PM BEE RAISER): Lipids at goal LFT within normal limits Continue simvastatin Prostate cancer Assessment & Plan (07/10/2024 1:45 PM CDT): Following with urology Assessment & Plan (01/02/2024 1:52 PM CDT): Following with urology & radiation oncology Assessment & Plan (06/03/2023 8:45 AM CDT): Following with urology & radiation oncology Assessment & Plan (11/26/2022 3:27 PM BEE RAISER): Following with urology Assessment & Plan (05/17/2022 12:57 PM CDT): Following with urology Assessment & Plan (11/17/2021 1:36 PM BEE RAISER): Following with urology Arthritis of big toe Assessment & Plan (01/02/2024 1:52 PM CDT): stable Assessment & Plan (06/03/2023 8:46 AM CDT): stable Assessment & Plan (11/26/2022 3:26 PM BEE RAISER): Following with orthopedics Assessment & Plan (05/17/2022 12:58 PM CDT): Following with orthopedics Assessment & Plan (11/17/2021 1:37 PM BEE RAISER): Stable Following with orthopedics History of skin cancer Assessment & Plan (07/10/2024 1:13 PM CDT): Following with qa manager Assessment & Plan (01/02/2024 1:52 PM CDT): Following with qa manager Assessment & Plan (06/03/2023 8:39 AM CDT): Following with qa manager Assessment & Plan (11/26/2022 3:26 PM BEE RAISER): Following with qa manager Assessment & Plan (05/17/2022 12:57 PM CDT): Following with qa manager Assessment & Plan (11/17/2021 1:37 PM BEE RAISER): Following with derm Resolved Problems Problem Noted Date Diagnosed Date Resolved Date Subdural hematoma (CMS/HCC) 11/22/2011 11/16/2021 Encounters Date Type Department Care Team Description 11/15/2024 1:21 PM BEE RAISER - 11/15/2024 11:59 PM BEE RAISER Hospital Encounter [facility] - PET [address] [place], [place] [address]e [address] [place] [address] Discharge Disposition: Discharge to home or self care 11/15/2024 1:21 PM BEE RAISER - 11/15/2024 11:59 PM BEE RAISER Hospital Encounter [facility] - PET [address] [place], [place] [address] [address] 8 [place] [address] Prostate cancer (HCC) Discharge Disposition: Discharge to home or self care from Last 3 Months Immunizations Immunization Administration Dates Next Due Influenza, [...] PCV 13 08/19/2020 Pneumococcal Polysaccharide PPV23 05/17/2022 Surgical History Surgery Date Site/Laterality Comments BRAIN SURGERY 10/27/2011 - 11/24/2011 VASECTOMY 09/26/1985 - 09/25/1986 Medical History Medical History Date Comments Status post laser cataract surgery of right eye SDH (subdural hematoma) (HCC) Prostate cancer (HCC) Hyperlipidemia Family History Medical History Relation Name Comments Cancer Brother Diogo Lozano Cancer Father Ronnie Lozano Hearing loss Father Ronnie Lozano Heart attack Father Ronnie Lozano Cancer Maternal Grandmother Malcom Finch Alzheimer's disease Mother Veila Lozano Colon cancer Other 1 Adenocarcinoma Of The Large Intestine - (Added by TW Conv) Alzheimer's disease Other 2 Alzheime r's Disease - (Added by TW Conv) Hyperlipidemia Other 3 Hypercholeste rolemia - (Added by TW Conv) Relation Name Status Comments Brother Diogo Lozano Father Ronnie Lozano (Age 95) Maternal Grandmother Malcom Finch Mother Velia Lozano Alive Other 1 Other 2 Other 3 Social History Tobacco Use Types Packs/Day Years [...] on file Legal Sex Male 9:49 AM BEE RAISER Gender Identity Not on file Sexual Orientation Not on file Obstetrics History Last Filed Vital Signs Vital Sign Reading [...] 07/10/2024 1:03 PM CDT Plan of Treatment Health Maintenance Due Date Last Done Comments DTaP/Tdap/Td Vaccine (1 - Tdap) 1965 Zoster Vaccine (1 of 2) 1973 Covid-19 Vaccine (5 - 2023-2 5 season) 2024 06/28/2022, 07/31/2021, 12/17/2020, Additional history exists Depression Screening 07/10/2025 07/10/2024, 06/03/2023, 05/17/2022, Additional history exists Fall Risk Assessment 07/10/2025 07/10/2024, 06/03/2023, 05/17/2022, Additional history exists Well Visit 65+ 07/10/2025 07/10/2024, 0904/2023, 05/17/2022 Colon Cancer Screening-Colonoscopy 02/15/2029 02/16/2024, 02/16/2024, 10/05/2013 Pneumococcal vaccine 65+ Completed 05/17/2022, 07/28 Colon Cancer Screening-CT Colonography Discontinued 02/16/2024, 02/16/2024, 10/05/2013 Colon Cancer Screening-DNA Stool Discontinued 02/16/2024, 02/16/2024, 10/05/2013 Colon Cancer Screening-FIT Discontinued 02/15, 02/16/2024, 10/05/2013 Colon Cancer Screening-Sigmoidoscopy Discontinued 02/16/2024, 02/16/2024, 10/05/2013 Hepatitis B Screening Completed 07/04/2024 Hepatitis C Screening Completed 07/04/2024 Influenza Vaccine Completed 07/10/2024, , 06/19/2022, Additional history exists Procedures Procedure Name Priority Date/Time Associated Diagnosis Comments PET/CT PROSTATE CANCER PSMA SKULL TO THIGH Schedule Routine, Read Routine (OP Routine) 11/15/2024 4:17 PM BEE RAISER Prostate cancer (HCC) HEPATITIS C ANTIBODY Routine 07/04/2024 7:16 AM CDT Need for hepatitis C screening test Annual physical exam HM COLONOSCOPY Routine 02/16/2024 from Last 3 Months or Most Recently Relevant to Health Maintenance Results * PET/CT Prostate Cancer PSMA Skull to Thigh (11/15/2024 4:17 PM BEE RAISER) Anatomical Region Laterality Modality N/A Positron Emissio n Tomography (PET) 11/15/2024 4:27 PM BEE RAISER Impressions 11/15/2024 5:35 PM BEE RAISER 1. Multiple intensity PSMA expressing osseous metastatic [...] Villegas MD, Ph.D Narrative 11/15/2024 5:35 PM BEE RAISER EXAMINATION: PSMA-PET/CT DATE OF STUDY: 11/15/2024 SCANNER: [facility] Lead[employer] (SQ1). This is a high-resolution scanner, which can result in higher SUVs (and even detection of previously unrecognized small lesions) compared to older scanners. RADIOPHARMACEUTICAL: 10.587 mCi F-18 DCFPyL (Piflufolastat) i.v. Injection site: Right antecubital fossa HISTORY: 69-year-old man with prostate cancer diagnosed in 2019 (Ashley score of 6) status post treatment under active surveillance from 6159-9275, with rising PSA, most recently 38.8 ng/mL. The study is requested for restaging of documented biochemically recurrent prostate cancer. Subsequent treatment strategy. TECHNIQUE: After intravenous administration of tracer, noncontrast CT images were obtained for attenuation correction and for fusion with emission PET images to allow for anatomical localization of PET findings. Emission PET images were then obtained. The study was interpreted on the [employer] workstation. The total scanned area was mid [...] EXAMINATION: PSMA-PET/CT DATE OF STUDY: 11/15/2024 SCANNER: [facility] [employer] (SQ1). This is a high-resolution scanner, which can result in higher SUVs (and even detection of previously unrecognized small lesions) compared to older scanners. RADIOPHARMACEUTICAL: 10.587 mCi F-18 DCFPyL (Piflufolastat) i.v. Injection site: Right antecubital fossa HISTORY: 69-year-old man with prostate cancer diagnosed in 2019 ([place] score of 6) status post treatment under active surveillance from 0339-7857, with rising PSA, most recently 38.8 ng/mL. The study is requested for restaging of documented biochemically recurrent prostate cancer. Subsequent treatment strategy. TECHNIQUE: After intravenous administration of tracer, noncontrast CT images were obtained for attenuation correction and for fusion with emission PET images to allow for anatomical localization of PET findings. Emission PET images were then obtained. The study was interpreted on the [employer] workstation. The total scanned area was mid [...] Electronically signed by: Romana Villegas MD, Ph.D Urbano Kent MD IMG PET PROCEDURES Final [...] LAB MICROBIOLOGY - GENERAL ORDERABLES Final Result [facility] [address] [facility] Department [place] [address] * HM COLONOSCOPY (02/16/2024) Greta Joseph MD HEALTH MAINTENANCE Final Result from Last 3 Months or Most Recently Relevant to Health Maintenance Insurance [facility]ARE [facility]ARE [facility] Care Teams Coding Quality Coordinator Relationship Specialty Start Date End Date Winsome Garcia MD PCP - General Family Medicine 11/16/21
--- OUTSIDE RECORDS SUMMARY | 2024-12-21 09:47 | XMS_ITS | Clinical Summary ---
Author Organization [facility] Tayler rob Christopherrebekah Address [address] [place] [address] Care Team Providers Care Alteration Manager Name Role Phone Unavailable Primary Care Provider Unavailabl e Allergies No known active allergies Medications simvastatin (ZOCOR) 20 mg tablet Take 20 mg by mouth daily. 4 Active Nubeqa 300 mg tablet Take 300 mg by mouth daily at bedtime. 5 Active predniSONE (DELTASONE) 5 mg tablet Take 1 Tablet (5 mg) by mouth 2 times daily with meals. 60 Tablet 10 5 Active lidocaine-pril ocaine (EMLA) 2.5-2.5 % Cream Apply to affected area see administration instructions. 30 Gram 1 5 Active ondansetron (ZOFRAN) 8 mg Tablet Take 1 Tablet (8 mg) by mouth every 8 hours as needed for Nausea/Emesis. 30 Tablet 4 5 Active Active Problems No known active problems Encounters Date Type Department Care Team Description 12/18/2024 External Device Data STL ABSTRACTION Provider, Abstract 12/18/2024 External Device Data STL ABSTRACTION Provider, Abstract 12/18/2024 External Device Data STL ABSTRACTION Provider, Abstract 12/12/2024 10:30 AM CDT Office Visit [facility] - [place] [address] [place] [address] Tank Waldrop MD Prostate cancer (CMS/HCC) (Primary Dx) from Last 3 Months Family History Medical History Relation Name Comments Colon Cancer Brother No Known Problems Child 1 No Known Problems Child 2 Colon Cancer Father Heart Disease Father Prostate Cancer Father No Known Problems Mother Relation Name Status Comments Brother Child 1 Alive Child 2 Alive Father Mother Social History Tobacco Use Types Packs/Day Years Used Date Smoking Tobacco: Never Smokeless Tobacco: Never Alcohol Use Standard Drinks/Week Comments Yes 0 (1 standard drink = 0.6 oz pur e alcohol) Occasionally Sex and Gender Information Value Date Recorded Sex Assigned at Not on file Legal Sex Male 3:35 PM WALL AND FLOOR TILER Gender Identity Not on file Sexual Orientation Not on file Last Filed Vital Signs Vital Sign Reading Time Taken Comments Blood Pressure 132/85 12/12/2024 10:29 AM CDT Pulse 87 12/12/2024 10:29 AM CDT Temperature 36.3 C (97.3 F) 12/12/2024 10:29 AM CDT Respiratory Rate 16 12/12/2024 10:2 9 AM CDT Oxygen Saturation 95% 12/12/2024 10: 29 AM CDT Inhaled Oxygen Concentration - - Weight 88.8 kg (195 lb 12.8 oz) 025 10:29 AM CDT Height 182.9 cm (6') 12/12/2024 10:29 AM CDT Body Mass Index 26.56 12/12/2024 10:29 AM CDT Plan of Treatment Health Maintenance Due Date Last Done Comments Pre-Diabetes and Diabetes Screening 1954 DTAP/TDAP/TD VACCINES (1 - Tdap) 1973 Traditional Medicare (O) A nnual Wellness Visit 1973 COLORECTAL SCREENING 1999 Colorectal Cancer Screening 1999 FIT-DNA Q 3 years 1999 FIT/FOBT Q 1 year 1999 Flex Sig/CT Colonography Q 5 years 1999 ZOSTER VACCINE (1 of 2) 2004 COVID-19 Vaccine (2023-2 5 season) 2024 07/31/2021, 12/17/2020, 11/19/2020 RSV VACCINE (60+ or ) (1 - 1-dose 75+ series) 2029 PNEUMOCOCCAL VACCINE 50+ YEARS Completed 05/17/2022 , 08/19/2020 INFLUENZA VACCINE Completed 07/10/2024, , 06/19/2022, Additional history exists Insurance MEDICARE PART A AND B [facility] [id number]
[2024-12-21 09:55] LABS: Basophils Percent Auto 0.9 % (0.2-1.2); Eosinophils Absolute Auto 0.1 K/mm3 (0-0.3); Eosinophils Percent Auto 1.5 % (0-4.4); Hemoglobin 14.1 g/dL (14.0-18.0); Immature Granulocyte Absolute 0.01 K/mm3 (0.00-0.031); Immature Granulocyte Percent A 0.3 % (0-0.5); Lymphocytes Absolute Auto 0.76 K/mm3 (0.9-3.2); Lymphocytes Percent Auto 23.2 % (18.3-44.2); Mean Corpuscular HGB Conc 33.6 g/dl (32-36); Mean Corpuscular Hemoglobin 30.7 pg (26-34); Mean Corpuscular Volume 91.5 fl (80-100); Mean Platelet Volume 8.7 fl (7.4-10.4); Monocytes Absolute Auto 0.4 K/mm3 (0.1-0.6); Monocytes Percent Auto 11.6 % (2.6-8.5); Neutrophils Absolute Auto 2.1 K/mm3 (1.3-6.7); Neutrophils Percent Auto 62.5 % (45.5-73.1); Platelet Count Result 216 k/mm3 (150-375); Red Blood Count 4.59 M/mm3 (4.6-6.20); Red Cell Distribution Width 11.8 % (11.5-14.5); White Blood Count 3.3 K/mm3 (4.5-10.0)
[2024-12-21 10:20] LABS: Prothrombin Time 13.3 Seconds (11.1-14.7)
[2024-12-21 10:21] LABS: Partial Thromboplastin Time 25.9 Seconds (22.3-36.8)
== END 2024-12-21 09:11 | disposition home or self-care (01) ==
LOC: ANHSURGERY 09:15
PROVIDERS: PCP Hospitalist; Visit Provider Surgery
DX: C61 Malignant neoplasm of prostate (principal); Z01.818 Encounter for other preprocedural examination
CPT/HCPCS: 36415; 85025; 85610; 85730

== ENCOUNTER 2024-12-21 09:22 | Outpatient (CLI) | payer MEDICARE, SELFPAY ==
[2024-12-24 15:38] LABS: PSA, Free 0.3 ng/mL; Percent Free Prostate Spec Ag 4 % (calc) (>25)
== END 2024-12-21 09:23 | disposition home or self-care (01) ==
PROVIDERS: PCP Hospitalist; Visit Provider Urology
DX: C61 Malignant neoplasm of prostate (principal)
CPT/HCPCS: 36415; 84153; 84154

== ENCOUNTER 2024-12-26 00:51 | Day surgery (SDC) | payer MEDICARE, SELFPAY ==
--- NOTE | 2024-12-14 10:31 | PC.NURSE ---
Report to the Outpatient Waiting Room, entrance under the green pavilion located off [facility], at time __11 AM____ on date _12/26/24 . Planned Procedure Time: __1:00PM .? Time changes happen often and if your time is changed the preop area will call you the afternoon before. - You and your visitor will be asked to self-screen and do not enter if you have any COVID symptoms. Please call surgeon if you need to reschedule. - A mask is optional within the hospital at this time. Patients may have clear liquids (water, carbonated beverages, clear teas, apple juice) until 3 hours prior to surgery ( 10 AM) with a maximum of 20 ounces. - No food from midnight until time of surgery and no smoking, or chewing tobacco (or any form of nicotine). No chewing gum, candy or mints. - Take only the following medications with a SIP of water on the morning of surgery: NONE DO NOT STOP ANY OF YOUR OTHER PRESCRIPTION MEDICATIONS PRIOR TO SURGERY EXCEPT THE FOLLOWING Hold all vitamins and supplements for 3 days per anesthesiologist. LAST DOSE 12/22/24 Medications to discontinue per physician NONE Please no make-up, nail icelandic, hairspray, perfume, deodorant, or body powder the day of surgery.? No jewelry (including any body piercings) or valuables the day of surgery, leave them at home.? Please take a shower or bath the night before, or the morning of, surgery with an antibacterial soap.? Wear comfortable, loose fitting clothing.? Children are encouraged to wear pajamas. - Jewelry must be removed prior to entering the operating room.? Rings and piercings that are not removed may be cut off. - The hospital will not accept responsibility for valuables.? - Please leave all valuables, including medications, at home the day of surgery. If you are going home after surgery, a licensed funeral limousine driver must drive you home.? - NO public transportation without another adult if you receive anesthesia. - We recommend that an adult stay with you for 24 hours following discharge. - We also recommend that you do not drive, make important decision, drink alcoholic beverages, or take any drugs that were not prescribed by your health care provider for at least 24 hours after your discharge time. For Pediatric surgeries, we recommend two adults accompany the child home. Follow any additional instructions given to you from your surgeon. Telephone instructions given to __PATIENT and asked if any additional questions and then verbalized understanding. Patient advised to call surgeon office or pre surgery nurse liaison [phone] if any additional questions.
[2024-12-14 12:07] VITALS: BMI 25.7
--- NOTE | ~2024-12-26 | XR_ITS ---
EXAMINATION: XR fl guide central line place DATE: 12/26/2024 13:48 INDICATION: Port catheter insertion TECHNIQUE: Single fluoroscopic image of the left upper chest was obtained during procedure performed by Dr. Jerome. Radiologist was not present for the imaging or procedure. The amount of fluoroscopy teddy e used during this procedure was 0.1 minutes. Total DAP was 0.0276 mGym^2. COMPARISON: None. FINDINGS: Left subclavian central venous port catheter in expected position. The distal aspect of the catheter extends beyond the margin of the field of imaging. Visualized left lung is clear with no ev ident pneumothorax. IMPRESSION: 1. Fluoroscopy utilized during placement of a left subclavian central venous port catheter which is i n in expected position. See procedure note for further detail. Reviewed, dictated and finalized at location A. IMPRESSION: 1. Fluoroscopy utilized during placement of a left subclavian central venous po rt catheter which is in in expected position. See procedure note for further de tail.
--- NOTE | ~2024-12-26 | XR_ITS ---
XR chest port-a-cath/central 12/26/2024 14:21 Indication: Post insertion of portacatheter Procedure: AP portable chest Comparison: No prior studies for comparison. Findings: Portacatheter tip in the SVC. Cardiomegaly. Moderate thoracic spondylosis with dextroscolio sis. No focal air space disease, pulmonary edema, pleural effusion or suspected pneumothorax. No acut e osseous abnormality. Impression: 1: No acute cardiopulmonary disease. Reviewed, dictated and finalized at location A. Impression: 1: No acute cardiopulmonary disease.
--- OUTSIDE RECORDS SUMMARY | 2024-12-26 00:56 | XMS_ITS | Encounter Summary ---
Author Organization [facility] Address [address] [place] [address] Care Team Providers Care Global Analytics Head Name Role Phone Antonio Rose MD Primary Care Provider [phone] Encounter Details Date Type Department Care Team (Late st Contact Info) Description 04/08/2021 Lab Requisition [facility] DermPath Lab [address] [place] [address] Ha Le MD [address] [place] [address] Social History Tobacco Use Types Packs/Day [...] AM CDT) Case Report Dermatopathology Report Case: [id number] Authorizing Provider: Ha Le MD Collected: 04/06/2021 03:33 AM Ordering Location: [facility] DermPath Lab Received: 04/08/2021 05:40 AM Pathologist: Reina Mario MD Specimen: Skin, right crown 4:52 PM CDT DERMATOPATHOLOGY LABORATORY Final Diagnosis Specimen A. SKIN, right crown: HYPERPLASTIC (HYPERTROPHIC) ACTINIC KERATOSIS (L57.0) OVERLYING CUTANEOUS HORN (L85.8) 07/15/202 1 4:52 PM CDT DERMATOPATHOLOGY LABORATORY Clinical History AK vs BCCA vs SCCA. Path # [id number]. 4:52 PM CDT DERMATOPATHOLOGY LABORATORY Gross Description Specimen A: Received is one formalin filled container labeled with the patient's name and designated right crown. The specimen consists of a shave biopsy measuring 2a1h0gd. Jar 0. 4:52 PM CDT DERMATOPATHOLOGY LABORATORY [...] characteristic determined by the Dermatopathology Laboratory at [facility], directed by Dr. Ismael Mario. These tests need not be, and therefore are not, approved by the [place] Food and Drug Administration. The tests are used for clinical purposes. Billing Codes Specimen Charges Stain Charges 49353 1 4:52 PM CDT DERMATOPATHOLOGY LABORATORY Embedded Images 4:52 PM CDT DERMATOPATHOLOGY LABORATORY Pathology/Cytolo gy TISSUE SPECIMEN FROM SKIN / Unknown 04/06/2021 3:33 AM CDT 04/08/2021 5:40 AM CDT Ha Le MD LAB - PATHOLOGY/CYTO LOGY ORDERABLES DERMATOPATHOLOGY LABORATORY [facility] - Department of Dermatology [address], [address] [phone] documented in this encounter Visit Diagnoses Not on filedocumented in this encounter Care Teams Global Analytics Head Relationship Specialty Start Date End Date Antonio Rose MD [address] [place] [address] PCP - General 08/12/20 documented as of this encounter
--- OUTSIDE RECORDS SUMMARY | 2024-12-26 00:56 | XMS_ITS | Encounter Summary ---
Author Organization [facility] Address [address] [place] [address] Care Team Providers Care In Store Banker Name Role Phone Antonio Rose MD Primary Care Provider [phone] Encounter Details Date Type Department Care Team (Late st Contact Info) Description 08/13/2020 Lab Requisition [facility] DermPath Lab [address] [place] [id number] Ha Le MD [address] [address] Social History Tobacco Use Types Packs/Day [...] Comments DERMATOPATHOLOGY Routine 08/11/2020 12:0 0 AM MANAGEMENT DEPARTMENT CHAIR documented in this encounter Results * DERMATOPATHOLOGY (08/11/2020 12:00 AM MANAGEMENT DEPARTMENT CHAIR) Case Report Dermatopathology Report Case: [id number] Authorizing Provider: Ha Le MD Collected: 08/11/2020 12:00 AM Ordering Location: [facility] DermPath Lab Received: 08/13/2020 06:12 AM Pathologist: Reina Mario MD Specimens: A) - Skin, right ala B) - Skin, right medial clavicle 0 4:47 PM MANAGEMENT DEPARTMENT CHAIR DERMATOPATHOLOGY LABORATORY Final Diagnosis Specimen A. SKIN, right ala: HYPERPLASTIC (HYPERTROPHIC) ACTINIC KERATOSIS WITH ASSOCIATED HUMAN PAPILLOMA VIRUS CHANGES; EXTENDING TO THE BASE OF THE SPECIMEN (L57.0) (see microscopic description and comment) Specimen B. SKIN, right medial clavicle: BASAL CELL CARCINOMA, NODULAR TYPE (C44.519) 0 4:47 PM [facility] DERMATOPATHOLOGY LABORATORY Clinical History A: Basal cell carcinoma vs squamous cell carcinoma vs other. Path # [id number]. B: Basal cell carcinoma vs squamou scell carcinoma vs other. Path # [id number] 0 4:47 PM [facility] DERMATOPATHOLOGY LABORATORY Gross Description Specimen A: Received is one formalin filled container labeled with the patient's name and designated right ala. The specimen consists of a shave biopsy measuring 9e6h0ch. Jar 0. Specimen B: Received is one formalin filled container labeled with the patient's name and designated right medial clavicle. The specimen consists of a shave biopsy measuring 2l1g0md. Jar 0. 0 4:47 PM [facility] DERMATOPATHOLOGY LABORATORY Microscopic Description Specimen [...] ratio and peripheral palisading. 0 4:47 PM [facility] DERMATOPATHOLOGY LABORATORY Disclaimer An external and internal positive and negative controls are appropriate for the histochemical, immunohistochemical and immunofluorescence stain(s) in this case (if any), except where stated explicitly. The performance characteristics of the stain(s) cited in this report were developed and its performance characteristic determined by the Dermatopathology Laboratory at [facility], directed by Dr. Ismael Mario. These tests need not be, and therefore are not, approved by the [place] Food and Drug Administration. The tests are used for clinical purposes. Billing Codes Specimen Charges Stain Charges 16155 97887 1 1 0 4:47 PM [facility] DERMATOPATHOLOGY LABORATORY Embedded Images 0 4:47 PM [facility] DERMATOPATHOLOGY LABORATORY Pathology/Cytology TISSUE SPECIMEN FROM SKIN / Unknown 08/11/2020 08/13/2020 6:12 AM MANAGEMENT DEPARTMENT CHAIR Miscellaneous samples (specimen) TISSUE SPECIMEN FROM SKIN / Unknown 08/11/2020 08/13/2020 6:12 AM MANAGEMENT DEPARTMENT CHAIR Ha eL MD LAB - PATHOLOGY/CYTO LOGY ORDERABLES DERMATOPATHOLOGY LABORATORY [facility] - Department of Dermatology [facility] Medicine [address] [place] [address], [address] [phone] documented in this encounter Visit Diagnoses Not on filedocumented in this encounter Care Teams In Store Banker Relationship Specialty Start Date End Date Antonio Rose MD [address] [place] [address] PCP - General 08/12/20 documented as of this encounter
--- OUTSIDE RECORDS SUMMARY | 2024-12-26 00:56 | XMS_ITS | Clinical Summary ---
Author Organization [facility] Address [address] [place] [address] Care Team Providers Care Hardwood Faller Name Role Phone Antonio Rose MD Primary Care Provider [phone] Source Comments [facility],non-owned Affiliates and Associated Physician Practices is amultiple site organization consisting of ambulatory clinics and hospital sitesin [place], [place], [place] and [place]. This disclosure is being madepursuant to the Care Everywhere program and may not contain all information available regarding this patient. Last updated 18.[facility] Social History Tobacco Use Types Packs/Day Years [...] age to complete this topic Care Teams Hardwood Faller Relationship Specialty Start Date End Date Antonio Rose MD [address] [place] [address] PCP - General 08/12/20
--- OUTSIDE RECORDS SUMMARY | 2024-12-26 00:56 | XMS_ITS | Referral Summary ---
Author Organization [facility], formerly [facility] Address [address] [place] [address] Care Team Providers Care Sock Liner Name Role Phone Winsome Garcia MD Primary Care Pro vider Encounters Date Type Department Care Team Description 11/15/2024 1:21 PM ANIMATOR - 11/15/2024 11:59 PM ANIMATOR Hospital Encounter [facility] - [address] [place] [address] Prostate cancer (HCC) Discharge Disposition: Discharge to home or self care 11/15/2024 1:21 PM ANIMATOR - 11/15/2024 11:59 PM ANIMATOR Hospital Encounter [facility] - [address] [place] [address] Discharge Disposition: Discharge to home or self [...] reviewed Reviewed medications and supplements Specialists: urology, cable reeler, & optho no evidence of cognitive impairment HCM: orders placed as needed Assessment & Plan (06/03/2023 8:46 AM CDT): Reviewed PMH & PHQ Screening PHQ-2 Total Score (If total score is 3 or more points, staff should administer the PHQ-9): 0 Hearing/vision screening reviewed, referrals placed as needed Fall risk reviewed Reviewed medications and supplements Specialists: urology, radiation oncology, cable reeler, & optho no evidence of cognitive impairment HCM: orders placed as needed Assessment & Plan (05/17/2022 1:28 PM CDT): Reviewed PMH & PHQ Screening PHQ-2 Total Score (If total score is 3 or more points, staff should administer the PHQ-9): 0 Hearing/vision screening reviewed, referrals placed as needed Fall risk reviewed Reviewed medications and supplements Specialists: urology, cable reeler, orthopedics & optho no evidence of cognitive impairment HCM: orders placed as needed Elevated glucose 11/17/2021 Assessment & Plan (06/03/2023 8:39 AM CDT): stable Assessment & Plan (11/26/2022 3:26 PM ANIMATOR): Rechekc a1c Assessment & Plan (05/17/2022 12:59 PM CDT): Lab Results Component Value Date HGBA1C 5.7 (H) 05/11/2022 Improved Continue to monitor History of vitreous hemorrhage of right eye 01/2019 Assessment & Plan (07/31/2019 12:35 PM ANIMATOR): F/u from ED on 07/23/19. Slowly improving though still dense vitreous (vit) heme centrally - vision stable from last visit - superotemporal tear with adequate laser surrounding, no subretinal fluid around tear or retinal detachment - recommend follow-up in 4 weeks to assess how vitreous (vit) heme is settling - pt has scheduled appointment with buoy tender in early August (about one month). Plans [...] statin Assessment & Plan (11/26/2022 5:15 PM ANIMATOR): Recheck lipids Continue statin pending results Discussed diet Assessment & Plan (05/17/2022 12:58 PM CDT): Reviewed lipids, LDL mildly above goal Discussed diet/exercise Continue simvastatin Continue to monitor Assessment & Plan (11/17/2021 1:39 PM ANIMATOR): Lipids at goal LFT within normal limits Continue simvastatin Prostate cancer Assessment & Plan (07/10/2024 1:45 PM CDT): Following with urology Assessment & Plan (01/02/2024 1:52 PM CDT): Following with urology & radiation oncology Assessment & Plan (06/03/2023 8:45 AM CDT): Following with urology & radiation oncology Assessment & Plan (11/26/2022 3:27 PM ANIMATOR): Following with urology Assessment & Plan (05/17/2022 12:57 PM CDT): Following with urology Assessment & Plan (11/17/2021 1:36 PM ANIMATOR): Following with urology Arthritis of big toe Assessment & Plan (01/02/2024 1:52 PM CDT): stable Assessment & Plan (06/03/2023 8:46 AM CDT): stable Assessment & Plan (11/26/2022 3:26 PM ANIMATOR): Following with orthopedics Assessment & Plan (05/17/2022 12:58 PM CDT): Following with orthopedics Assessment & Plan (11/17/2021 1:37 PM ANIMATOR): Stable Following with orthopedics History of skin cancer Assessment & Plan (07/10/2024 1:13 PM CDT): Following with cable reeler Assessment & Plan (01/02/2024 1:52 PM CDT): Following with cable reeler Assessment & Plan (06/03/2023 8:39 AM CDT): Following with cable reeler Assessment & Plan (11/26/2022 3:26 PM ANIMATOR): Following with cable reeler Assessment & Plan (05/17/2022 12:57 PM CDT): Following with cable reeler Assessment & Plan (11/17/2021 1:37 PM ANIMATOR): Following with derm Resolved Problems Problem Noted [...] on file Legal Sex Male 9:49 AM ANIMATOR Gender Identity Not on file Sexual Orientation [...] Read Routine (OP Routine) 11/15/2024 4:17 PM ANIMATOR Prostate cancer (HCC) HEPATITIS C ANTIBODY Routine 07/04/2024 7:16 AM CDT Need for hepatitis C screening test Annual physical exam HM COLONOSCOPY Routine 02/16/2024 from Last 3 Months or Most Recently Relevant to Health Maintenance Results * PET/CT Prostate Cancer PSMA Skull to Thigh (11/15/2024 4:17 PM ANIMATOR) Anatomical Region Laterality Modality N/A Positron Emissio n Tomography (PET) 11/15/2024 4:27 PM ANIMATOR Impressions 11/15/2024 5:35 PM ANIMATOR 1. Multiple intensity PSMA expressing osseous metastatic [...] Villegas MD, Ph.D Narrative 11/15/2024 5:35 PM ANIMATOR EXAMINATION: PSMA-PET/CT DATE OF STUDY: 11/15/2024 SCANNER: [facility] [employer] (SQ1). This is a high-resolution scanner, which can result in higher SUVs (and even detection of previously unrecognized small lesions) compared to older scanners. RADIOPHARMACEUTICAL: 10.587 mCi F-18 DCFPyL (Piflufolastat) i.v. Injection site: Right antecubital fossa HISTORY: 69-year-old man with prostate cancer diagnosed in 2019 (Ashley score of 6) status post treatment under active surveillance from 0000-0539, with rising PSA, most recently 38.8 ng/mL. The study is requested for restaging of documented biochemically recurrent prostate cancer. Subsequent treatment strategy. TECHNIQUE: After intravenous administration of tracer, noncontrast CT images were obtained for attenuation correction and for fusion with emission PET images to allow for anatomical localization of PET findings. Emission PET images were then obtained. The study was interpreted on the [employer] workstation. The total scanned area was mid [...] changes of the spine. Procedure Note Romana Milaln MD PhD - 11/15/2024 EXAMINATION: PSMA-PET/CT DATE OF STUDY: 11/15/2024 SCANNER: [facility] [employer] (SQ1). This is a high-resolution scanner, which can result in higher SUVs (and even detection of previously unrecognized small lesions) compared to older scanners. RADIOPHARMACEUTICAL: 10.587 mCi F-18 DCFPyL (Piflufolastat) i.v. Injection site: Right antecubital fossa HISTORY: 69-year-old man with prostate cancer diagnosed in 2019 (Nickerson score of 6) status post treatment under active surveillance from 2002-0374, with rising PSA, most recently 38.8 ng/mL. The study is requested for restaging of documented biochemically recurrent prostate cancer. Subsequent treatment strategy. TECHNIQUE: After intravenous administration of tracer, noncontrast CT images were obtained for attenuation correction and for fusion with emission PET images to allow for anatomical localization of PET findings. Emission PET images were then obtained. The study was interpreted on the [employer] workstation. The total scanned area was mid [...] LAB MICROBIOLOGY - GENERAL ORDERABLES Final Result [id number] [facility] [place] [address] * HM COLONOSCOPY (02/16/2024) Historical Provider HEALTH MAINTENANCE Final Result from Last 3 Months or Most Recently Relevant to Health Maintenance Insurance MEDICARE [facility] MEDICARE [facility] MEDICARE AARP Care Teams Sock Liner Relationship Specialty Start Date End Date Winsome Garcia MD PCP - General Family Medicine 11/16/21
--- OUTSIDE RECORDS SUMMARY | 2024-12-26 00:56 | XMS_ITS | Encounter Summary ---
Author Organization [facility] [employer] Address [address] [place] [address] Care Team Providers Care Dramatic Director Name Role Phone Unavailable Primary Care Provider Unavailabl e Reason for Visit * Reason Onset Date Comments Medication Refill 12/25/2024 Encounter Details Date Type Department Care Team (Late st Contact Info) Description 12/25/2024 Refill [facility] Oncology and Hematology [address] [place] [address] Tank Waldrop MD [address] [place] [address] [employer] [address] [place] [phone] Social History Tobacco Use Types Packs/Day Years Used Date Smoking Tobacco: Never Smokeless Tobacco: Never Alcohol Use Standard Drinks/Week Comments Yes 0 (1 standard drink = 0.6 oz pur e alcohol) Occasionally Sex and Gender Information Value Date Recorded Sex Assigned at Not on file Legal Sex Male 3:35 PM GRAB JACK MAN Gender Identity Not on file Sexual Orientation Not on file documented as of this encounter Plan of Treatment Upcoming Encounters Date Type Department Care Team (Late st Contact Info) Description 01/23/2025 8:45 AM CDT Office Visit [facility] Oncology and Hematology - [address] [place] [address] Tank Waldrop MD [address] [place] [address] [employer] [address] [place] [phone] documented as of this encounter Visit Diagnoses Not on filedocumented in this encounter
--- OUTSIDE RECORDS SUMMARY | 2024-12-26 00:56 | XMS_ITS | Clinical Summary ---
Author Organization [facility] Tayler rob Ronald Address [address] [place] [address] Care Team Providers Care Dry End Tester Name Role Phone Unavailable Primary Care Provider [...] for Nausea/Emesis. 30 Tablet 4 5 Active dexAMETHasone (DECADRON) 4 mg tablet Take 2 tablets by mouth BID day before treatment, day of treatment, day after treatment with Docetaxel. 12 Tablet 6 5 Active Active Problems No known active problems Encounters Date Type Department Care Team Description 12/25/2024 Refill [facility] Oncology and Hematology - [address] [place] [address] Tank Waldrop MD 12/18/2024 External Device Data [facility] ABSTRACTION Provider, Abstract 12/18/2024 External Device Data [facility] ABSTRACTION Provider, Abstract 12/18/2024 External Device Data [facility] ABSTRACTION Provider, Abstract 12/12/2024 10:30 AM CDT Office Visit [facility] Oncology and Hematology 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 Gender Identity Not on file Sexual Orientation [...] 12/12/2024 10:29 AM CDT Plan of Treatment Upcoming Encounters Date Type Department Care Team (Late st Contact Info) Description 01/23/2025 8:45 AM CDT Office Visit [facility] On[facility] and [facility]ology - [address] [facility] [address] [place] [address] Tank Waldrop MD [address] [facility] [address] [place] [address] Health Maintenance Due Date Last Done Comments Pre-Diabetes and Diabetes Screening 1955 DTAP/TDAP/TD VACCINES (1 - Tdap) 1973 Traditional Medicare (ACO) A nnual Wellness Visit 1974 COLORECTAL SCREENING [...] exists Insurance MEDICARE PART A AND B [facility] [id number] [place] [address]
--- OUTSIDE RECORDS SUMMARY | 2024-12-26 00:56 | XMS_ITS | Clinical Summary ---
Author Organization [facility] Address [address] [place] [address] Care Team Providers Care School Cafeteria Head Cook Name Role Phone Winsome Garcia MD Primary [...] reviewed Reviewed medications and supplements Specialists: urology, railroad dining car stewardess, & optho no evidence of cognitive impairment HCM: orders placed as needed Assessment & Plan (06/03/2023 8:46 AM CDT): Reviewed PMH & FH PHQ Screening PHQ-2 Total Score (If total score is 3 or more points, staff should administer the PHQ-9): 0 Hearing/vision screening reviewed, referrals placed as needed Fall risk reviewed Reviewed medications and supplements Specialists: urology, radiation oncology, railroad dining car stewardess, & optho no evidence of cognitive impairment HCM: orders placed as needed Assessment & Plan (05/17/2022 1:28 PM CDT): Reviewed PMH & FH PHQ Screening PHQ-2 Total Score (If total score is 3 or more points, staff should administer the PHQ-9): 0 Hearing/vision screening reviewed, referrals placed as needed Fall risk reviewed Reviewed medications and supplements Specialists: urology, railroad dining car stewardess, orthopedics & optho no evidence of cognitive impairment HCM: orders placed as needed Elevated glucose 11/17/2021 Assessment & Plan (06/03/2023 8:39 AM CDT): stable Assessment & Plan (11/26/2022 3:26 PM BRICK PAVING CHECKER): Rechekc a1c Assessment & Plan (05/17/2022 12:59 PM CDT): Lab Results Component Value Date HGBA1C 5.7 (H) 05/11/2022 Improved Continue to monitor History of vitreous hemorrhage of right eye 01/2019 Assessment & Plan (07/31/2019 12:35 PM BRICK PAVING CHECKER): F/u from ED on 07/23/19. Slowly improving though still dense vitreous (vit) heme centrally - vision stable from last visit - superotemporal tear with adequate laser surrounding, no subretinal fluid around tear or retinal detachment - recommend follow-up in 4 weeks to assess how vitreous (vit) heme is settling - pt has scheduled appointment with retail field supervisor in early August (about one month). Plans [...] statin Assessment & Plan (11/26/2022 5:15 PM BRICK PAVING CHECKER): Recheck lipids Continue statin pending results Discussed diet Assessment & Plan (05/17/2022 12:58 PM CDT): Reviewed lipids, LDL mildly above goal Discussed diet/exercise Continue simvastatin Continue to monitor Assessment & Plan (11/17/2021 1:39 PM BRICK PAVING CHECKER): Lipids at goal LFT within normal limits Continue simvastatin Prostate cancer Assessment & Plan (07/10/2024 1:45 PM CDT): Following with urology Assessment & Plan (01/02/2024 1:52 PM CDT): Following with urology & radiation oncology Assessment & Plan (06/03/2023 8:45 AM CDT): Following with urology & radiation oncology Assessment & Plan (11/26/2022 3:27 PM BRICK PAVING CHECKER): Following with urology Assessment & Plan (05/17/2022 12:57 PM CDT): Following with urology Assessment & Plan (11/17/2021 1:36 PM BRICK PAVING CHECKER): Following with urology Arthritis of big toe Assessment & Plan (01/02/2024 1:52 PM CDT): stable Assessment & Plan (06/03/2023 8:46 AM CDT): stable Assessment & Plan (11/26/2022 3:26 PM BRICK PAVING CHECKER): Following with orthopedics Assessment & Plan (05/17/2022 12:58 PM CDT): Following with orthopedics Assessment & Plan (11/17/2021 1:37 PM BRICK PAVING CHECKER): Stable Following with orthopedics History of skin cancer Assessment & Plan (07/10/2024 1:13 PM CDT): Following with railroad dining car stewardess Assessment & Plan (01/02/2024 1:52 PM CDT): Following with railroad dining car stewardess Assessment & Plan (06/03/2023 8:39 AM CDT): Following with railroad dining car stewardess Assessment & Plan (11/26/2022 3:26 PM BRICK PAVING CHECKER): Following with railroad dining car stewardess Assessment & Plan (05/17/2022 12:57 PM CDT): Following with railroad dining car stewardess Assessment & Plan (11/17/2021 1:37 PM BRICK PAVING CHECKER): Following with derm Resolved Problems Problem Noted Date Diagnosed Date Resolved Date Subdural hematoma (CMS/HCC) 11/22/2011 11/16/2021 Encounters Date Type Department Care Team Description 11/15/2024 1:21 PM BRICK PAVING CHECKER - 11/15/2024 11:59 PM BRICK PAVING CHECKER Hospital Encounter [facility] - PET [address] [place], [place] [address]e Floor [address] [place] [address] Discharge Disposition: Discharge to home or self care 11/15/2024 1:21 PM BRICK PAVING CHECKER - 11/15/2024 11:59 PM BRICK PAVING CHECKER Hospital Encounter [facility] - PET [address] [place], [place] [address] [address] [place] [address] Prostate cancer (HCC) Discharge Disposition: Discharge to [...] Maternal Grandmother Malcom Finch Alzheimer's disease Mother Velia Lozano Colon cancer Other 1 Adenocarcinoma Of [...] on file Legal Sex Male 9:49 AM BRICK PAVING CHECKER Gender Identity Not on file Sexual Orientation [...] Read Routine (OP Routine) 11/15/2024 4:17 PM BRICK PAVING CHECKER Prostate cancer (HCC) HEPATITIS C ANTIBODY Routine 07/04/2024 7:16 AM CDT Need for hepatitis C screening test Annual physical exam HM COLONOSCOPY Routine 02/16/2024 from Last 3 Months or Most Recently Relevant to Health Maintenance Results * PET/CT Prostate Cancer PSMA Skull to Thigh (11/15/2024 4:17 PM BRICK PAVING CHECKER) Anatomical Region Laterality Modality N/A Positron Emissio n Tomography (PET) 11/15/2024 4:27 PM BRICK PAVING CHECKER Impressions 11/15/2024 5:35 PM BRICK PAVING CHECKER 1. Multiple intensity PSMA expressing osseous metastatic [...] Villegas MD, Ph.D Narrative 11/15/2024 5:35 PM BRICK PAVING CHECKER EXAMINATION: PSMA-PET/CT DATE OF STUDY: 11/15/2024 SCANNER: [facility] [employer] (SQ1). This is a high-resolution scanner, which can result in higher SUVs (and even detection of previously unrecognized small lesions) compared to older scanners. RADIOPHARMACEUTICAL: 10.587 mCi F-18 DCFPyL (Piflufolastat) i.v. Injection site: Right antecubital fossa HISTORY: 69-year-old man with prostate cancer diagnosed in 2019 (Ashley score of 6) status post treatment under active surveillance from 9707-6137, with rising PSA, most recently 38.8 ng/mL. The study is requested for restaging of documented biochemically recurrent prostate cancer. Subsequent treatment strategy. TECHNIQUE: After intravenous administration of tracer, noncontrast CT images were obtained for attenuation correction and for fusion with emission PET images to allow for anatomical localization of PET findings. Emission PET images were then obtained. The study was interpreted on the [employer] workstation. The total scanned area was mid [...] EXAMINATION: PSMA-PET/CT DATE OF STUDY: 11/15/2024 SCANNER: [facility] [employer] (SQ1). This is a high-resolution scanner, which can result in higher SUVs (and even detection of previously unrecognized small lesions) compared to older scanners. RADIOPHARMACEUTICAL: 10.587 mCi F-18 DCFPyL (Piflufolastat) i.v. Injection site: Right antecubital fossa HISTORY: 69-year-old man with prostate cancer diagnosed in 2019 ([place] score of 6) status post treatment under active surveillance from 0965-9276, with rising PSA, most recently 38.8 ng/mL. The study is requested for restaging of documented biochemically recurrent prostate cancer. Subsequent treatment strategy. TECHNIQUE: After intravenous administration of tracer, noncontrast CT images were obtained for attenuation correction and for fusion with emission PET images to allow for anatomical localization of PET findings. Emission PET images were then obtained. The study was interpreted on the [employer] workstation. The total scanned area was mid [...] GENERAL ORDERABLES Final Result [facility] [address] [facility] Department [place] [address] * HM COLONOSCOPY (02/16/2024) Greta Joseph MD HEALTH MAINTENANCE Final Result from Last 3 Months or Most Recently Relevant to Health Maintenance Insurance MEDICARE [facility] MEDICARE [facility] [place] [address] [facility] Care Teams School Cafeteria Head Cook Relationship Specialty Start Date End Date Winsome Garcia MD PCP - General Family Medicine 11/16/21
--- OUTSIDE RECORDS SUMMARY | 2024-12-26 00:56 | XMS_ITS | Encounter Summary ---
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
--- NOTE | 2024-12-26 11:32 | PM.IMHP ---
H&P: HPI History of Present Illness Date/Time: 12/26/24 11:32 Chief Complaint: Metastatic prostate cancer Narrative: The patient is a 69-year-old male presenting to the hospital for port placement. The patient is going to undergo chemotherapy for metastatic prostate cancer to bone. The patient denies any previous central venous catheterization. The patient reports he is right handed. Review of Systems Review of Systems: All systems reviewed & are unremarkable except as noted in HPI and below PMFSH Past Medical History Medical History Cancer, metastatic to bone Fracture of right ulnar styloid Fracture of right distal radius Subdural hematoma Oct 2011 Retinal tear (~06/26/19) Right eye Surgical History Surgical History S/P LASIK surgery History of orchiectomy (~1975) H/O colonoscopy (~09/2013) Family History Family History Sibling Carcinoma of colon Other Family history of elevated blood lipids No family history of cardiovascular disease Social History Social History Smoking status: Never smoker Alcohol intake: current Alcohol use details: WINE Living arrangements: with family Occupation/Education: retired Gender identity (if verbalized by the patient): Male Spiritual care concerns: No Meds Home Medications and Allergies Home Medications ?Medication ?Instructions ?Recorded ?Confirmed ?Type simvastatin 20 mg tablet See Rx Instructions .Route 06/26/21 12/14/24 Rx .COMPLEX #90 tabs Metamucil 1 tab-cap PO DIRECTED 02/02/24 12/14/24 History flaxseed 1 tab-cap PO DIRECTED 02/02/24 12/14/24 History multivitamin 1 tablet PO DAILY 02/02/24 12/14/24 History darolutamide 300 mg tablet (Nubeqa) 600 mg PO BID 12/14/24 12/14/24 History Allergies Allergy/AdvReac Type Severity Reaction Status Date / Time No Known Allergies Allergy Verified 12/14/24 12:23 Exam Const: General: cooperative, comfortable and no acute distress Neck: Neck: normal visual inspection, full ROM and no lymphadenopathy Chest: Chest palpation & inspection: normal inspection of the chest Resp: Effort & Inspection: normal respiratory effort Auscultation: clear to auscultation bilaterally Cardio: Rate: regular rate Rhythm: regular rhythm GI: Inspection: normal to inspection Assessment and Plan Assessment and plan (1) Cancer, metastatic to bone: Code(s): C79.51 - Secondary malignant neoplasm of bone Status: Acute Assessment and Plan: Will set up for port placement in the operating room
--- NOTE | 2024-12-26 11:34 | WPDHPUPDATE1 ---
History and Physical Update Update Date/Time: 12/26/24 11:34 History and Physical has been reviewed, including an updated exam of the patient. There are NO changes in the patient's condition. Risks, benefits, and alternatives have been discussed and questions answered. Patient agrees to proceed with procedure.
[2024-12-26 12:09] VITALS: BP 136/81; PULSE 65; TEMP 36.1; O2SAT 99; BMI 25.6
[2024-12-26] MEDS: LACTATED RINGERS 1,000 ML 30 ML IV CONT (12:14)
[2024-12-26] MEDS: KETOROLAC 15 MG/ML VIAL (*BKC) IV PUSH (12:15)
--- NOTE | 2024-12-26 12:46 | WPDANESEPPF ---
Anes - Initial Pre Proc Eval Procedure: Operation Date: 12/26/24 13:00 Proposed Procedures p Insertion Krys Cath - Lynda Jerome MD Date/Time: 12/26/24 12:46 Surgeon: Lynda Jerome MD Pre Op Diagnosis: Prostate Ca Patient Data Age: 69 Gender: M Height: 1.83 m Weight: 85.8 kg Last Vital Signs Temp 36.1 C L 12/26/24 12:09 Pulse 65 12/26/24 12:09 BP 136/81 12/26/24 12:09 Pulse Ox 99 12/26/24 12:09 O2 Del Method Room Air 12/26/24 12:09 Allergies Allergy/AdvReac Type Severity Reaction Status Date / Time No Known Allergies Allergy Verified 12/26/24 12:06 Home Medications ?Medication ?Instructions ?Recorded ?Confirmed ?Type simvastatin 20 mg tablet See Rx Instructions .Route 06/26/21 12/14/24 Rx .COMPLEX #90 tabs Metamucil 1 tab-cap PO DIRECTED 02/02/24 12/14/24 History flaxseed 1 tab-cap PO DIRECTED 02/02/24 12/14/24 History multivitamin 1 tablet PO DAILY 02/02/24 12/14/24 History darolutamide 300 mg tablet (Nubeqa) 600 mg PO BID 12/14/24 12/14/24 History Patient hx anesthesia problems: none Family hx anesthesia problems: none Results Review: All pre-operative results and documents have been reviewed as part of the pre-operative evaluation. [facility] Past Medical History Medical History Cancer, metastatic to bone Fracture of right ulnar styloid Fracture of right distal radius Subdural hematoma Oct 2011 Retinal tear (~06/26/19) Right eye Surgical History Surgical History S/P LASIK surgery History of orchiectomy (~1975) H/O colonoscopy (~09/2013) Family History Family History Sibling Carcinoma of colon Other Family history of elevated blood lipids No family history of cardiovascular disease Social History Social History Smoking status: Never smoker Alcohol intake: current Alcohol use details: WINE Living arrangements: with family Occupation/Education: retired Gender identity (if verbalized by the patient): Male Spiritual care concerns: No Anes - Eval Final PreProcedure Day of Procedure 12/26/24 12:46 Patient weight: normal Heart: regular rate and rhythm Lungs: clear to auscultation and normal air movement Airway: Mallampati scale class II Neurological: alert and oriented Last oral intake: >/= 8 hours ASA classification: III Emergent: no Anesthetic plan: proceed Anesthesia type and monitoring: general GIVS and standard monitoring Results Review: All pre-operative results and documents have been reviewed as part of the pre-operative evaluation. Informed Consent: The patient's anesthetic plan and its attendant risks and benefits were discussed with the patient/family/POA. Questions were solicited and answers provided to the satisfaction of the patient/family/POA.
[2024-12-26] MEDS: HEPARIN SODIUM, PORCINE 10,000 UNITS/10 ML VIAL 4500 UNITS IRRIGATION (13:02)
[2024-12-26] MEDS: BUPIVACAINE/EPINEPHRINE 0.5% 50 ML VIAL 30 ML INFILTRATE (13:02)
[2024-12-26] MEDS: ceFAZolin 2 GM/D5W 50 ML 2 GM/50 ML BAG IVPB (13:02)
[2024-12-26] MEDS: HEPARIN SODIUM 5,000 UNITS/ML VIAL 5000 UNITS IRRIGATION (13:02)
--- NOTE | 2024-12-26 13:38 | P.OP_ITS ---
Procedure Note - Detailed Date of Procedure 12/26/24 Pre-op Diagnosis metastatic prostate cancer Post-op Diagnosis Same Procedure Performed placement of left subclavian venous access device under fluoroscopic guidance Surgeon Lynda Jerome MD Anesthesia MAC and Local Indications 69-year-old male with metastatic prostate cancer necessitating access for chemotherapy Findings first stick L SCV Description of Procedure Patient was brought into the operating room and placed in the supine position. After adequate induction of mac anesthesia, the patient was prepped and draped in normal sterile fashion. Time-out was then done to verify the patient's identity, as well as the procedure being performed. I began by making a small incision in the left chest, I then gained access into the left subclavian vein with an 18 gauge needle. I then placed the guidewire into the vein and confirmed placement via fluoroscopic guidance. I then locally anesthetized the area in the left chest. I then enlarged the incision around the guidewire including making a subcutaneous pocket inferiorly to allow placement of the port itself. I then placed a dilating sheath over the guidewire into the left subclavian vein via sterile Seldinger technique. This was once again done and confirmed via fluoroscopic guidance. I then removed the dilator and the guidewire, now just leaving the sheath in the vein. I then fed the previously flushed catheter into the left subclavian vein under fluoroscopic guidance. At approximately 25 cm, the catheter was noted to be near the atrial caval junction. I then peeled away the sheath, now just leaving the catheter in the vein. I then was able to easily draw and flush from the catheter. The catheter was cut to fit and attached to the port itself. The port was placed in to the previously made subcutaneous pocket and sutured in with 0 Ethibond suture. Final fluoroscopic view showed the termination of the catheter at the atrial caval junction with a nice smooth curvature back to the port itself. I was able to gain access to the port with a Baldwin needle and was able to easily draw and flush from the port. I then flushed 4 cc of a final heparin flush into the port. The incision was closed with 3 0 Vicryl suture in the subcutaneous tissue and the skin was closed with 4 O Monocryl subcuticular suture. Dermabond was then placed on wound. The patient tolerated the procedure well and will be sent to the recovery room in stable condition. Implants L SCV VAD Estimated Blood Loss 5 Drains No Packing No Pathology None sent Complications No immediate complications Condition Stable Disposition PACU [facility] Billing Surgery - Charge Forward: Surgery Billing
[2024-12-26 13:42] VITALS: BP 115/55; PULSE 70; RESP 14; O2SAT 100
[2024-12-26 14:10] VITALS: BP 115/66; PULSE 57; RESP 14; O2SAT 100
[2024-12-26 14:30] VITALS: BP 132/71; PULSE 59; RESP 14
== END 2024-12-26 14:39 | disposition home or self-care (01) ==
PROVIDERS: PCP Hospitalist; Visit Provider Surgery
PROC: (CPT 36561; principal; 2024-12-26 13:00)
DX: C79.51 Secondary malignant neoplasm of bone (principal); C61 Malignant neoplasm of prostate; Z98.890 Other specified postprocedural states; Z80.0 Family history of malignant neoplasm of digestive organs
CPT/HCPCS: 36561; 77001; C1788; J0690; J1644; J1885; J2003; J2250; J2704; J3010; J7030; J7120

== ENCOUNTER 2025-02-19 09:08 | Inpatient (IN) | payer MEDICARE, SELFPAY ==
[2025-02-19] VITALS (17 sets, daily range): BP systolic 99–175; BP diastolic 51–77; PULSE 78–121; RESP 12–21; TEMP 36.5–39.3; O2SAT 96–100; BMI 25.2
--- NOTE | ~2025-02-19 | XR_ITS ---
Left ankle Technique: AP, oblique, and lateral views were obtained. Clinical History: Pain Findings: No acute fracture or dislocation is seen. Osseous alignment is anatomic. Ankle mortise and other visualized joint spaces are preserved. Soft tissues are otherwise unremarkable. Impression: Unremarkable left ankle. Reviewed, dictated and finalized at location . Impression: Unremarkable left ankle.
--- NOTE | ~2025-02-19 | US_ITS ---
EXAMINATION: US venous doppler [facility] DATE: 02/19/2025 11:08 INDICATION: Left lower limb pain and erythema TECHNIQUE: Grayscale ultrasound images without and with compression and Doppler ultrasound images of the left lower extremity veins were obtained. COMPARISON: None. FINDINGS: The visualized portions of left common femoral vein, profunda (deep) femoral vein, femoral vein, popl iteal vein, peroneal veins, posterior tibial veins, gastrocnemius vein and proximal to mid greater sa phenous vein are patent. IMPRESSION: 1. No deep venous thrombosis in the left lower limb. Reviewed, dictated and finalized at location A.
--- NOTE | ~2025-02-19 | XR_ITS ---
Portable chest x-ray Comparison: 12/26/2024 Clinical History: Numbness Findings: Left-sided Mediport in place. Lungs are clear, without focal consolidation or pleural effu aleksandra. Cardiomediastinal silhouette is stable. Bones and soft tissues are unremarkable. Impression: Clear lungs. Left-sided Mediport. Reviewed, dictated and finalized at location . Impression: Clear lungs. Left-sided Mediport.
--- NOTE | ~2025-02-19 | XR_ITS ---
Left foot Technique: AP, oblique, and lateral views were obtained. Clinical History: Pain Findings: No acute fracture or dislocation is seen. Osseous alignment is anatomic. There is severe de generative change of the first MTP joint. Soft tissues are unremarkable. Impression: Severe degenerative change of the first MTP joint. Reviewed, dictated and finalized at [facility]. Impression: Severe degenerative change of the first MTP joint.
--- NOTE | ~2025-02-19 | CT_ITS ---
Non-contrast Head CT History: Altered mental status Technique: Axial non-contrast imaging of the brain was performed. Dose reduction technique was used on this scan by utilizing automated exposure control and iterative reconstruction technique. The dose -length product (DLP) was 681.00 mGy-cm. Findings: There is no evidence of intracranial hemorrhage, mass lesion, or acute infarct. Brain par enchyma appears normal. The ventricles and subarachnoid spaces are normal in size. The calvarium ap pears normal. The visualized paranasal sinuses and mastoid air cells are clear. Impression: No significant abnormality seen. Reviewed, dictated and finalized at location . Impression: No significant abnormality seen.
--- NOTE | 2025-02-19 09:18 | ECG_ITS ---
Test Date: 2025-02-19 09:22:34 Measurements Intervals Banner Rate: 118 P: 52 ND: 149 QRS: -6 QRSD: 87 T: 45 QT: 356 QTc: 500 Interpretive Statements SINUS TACHYCARDIA No previous ECG available for comparison Electronically Signed On 02-19-2025 14:07:26 CDT by Piero Nguyen M.D.
--- OUTSIDE RECORDS SUMMARY | 2025-02-19 09:38 | XMS_ITS | Clinical Summary ---
Author Organization [facility] Taly[address] Ronald Address [address] [place] [address] Care Team Providers Care Bi Manager Name Role Phone Unavailable Primary Care [...] Encounters Date Type Department Care Team Description 02/18/2025 Orders Only [facility] Oncology and Hematology - [place] [address] [place] [address] Tank Waldrop MD Prostate cancer ([facility]) 02/14/2025 External Device Data STL ABSTRACTION Provider, Abstract 02/13/2025 9:30 AM CDT Office Visit [facility] Oncology and Hematology [facility] [address] [place] [address] Tank Waldrop MD Prostate cancer ([facility]/HCC) (Primary Dx) 02/13/2025 External Device Data STL ABSTRACTION Provider, Abstract 02/12/2025 External Device Data STL ABSTRACTION Provider, Abstract 02/11/2025 Orders Only [facility] Oncology and Hematology - [place] [address] [place] [phone] Tank Waldrop MD Prostate cancer ([facility]/HCC) 02/04/2025 Orders Only [facility] Oncology and Hematology - [place] [address] [place] [phone] Tank Waldrop MD Prostate cancer ([facility]/HCC) 01/28/2025 Orders Only [facility] Oncology and Hematology - [place] [address] [place] [id number] Tank Waldrop MD Prostate cancer ([facility]/HCC) 01/23/2025 8:45 AM CDT Office Visit [facility] Oncology and Hematology [facility] [address] Tank Waldrop MD Prostate cancer ([facility]/HCC) (Primary Dx) 01/23/2025 Orders Only [facility] Oncology and Hematology - [place] [address] [place] [id number] Tank Waldrop MD 01/21/2025 Orders Only [facility] Oncology and Hematology - [place] [address] [place] [id number] Tank Waldrop MD Prostate cancer ([facility]/HCC) 01/16/2025 Orders Only [facility] Oncology and Hematology - [place] [address] [place] [address] Tank Waldrop MD Prostate cancer ([facility]/HCC) (Primary Dx) 01/14/2025 Orders Only [facility] Oncology and Hematology - [place] [address] [place] [id number] Tank Waldrop MD Prostate cancer ([facility]/HCC) 01/08/2025 External Device Data STL ABSTRACTION Provider, Abstract 01/07/2025 Orders Only [facility] Oncology and Hematology [facility] [address] [place] [phone] Tank Waldrop MD Prostate cancer ([facility]/HCC) 01/04/2025 Abstract [facility] Oncology and Hematology [facility] [address] Tank Waldrop MD 01/02/2025 Orders Only [facility] Oncology and Hematology [facility] [address] Tank Waldrop MD Prostate cancer ([facility]/HCC) (Primary Dx) 01/02/2025 Orders Only [facility] Oncology [facility] Hematology [facility] [address] [place] [phone] Tank Waldrop MD Prostate cancer ([facility]/HCC) (Primary Dx) 12/27/2024 Orders Only [facility] Oncology and Hematology [facility] [address] [place] [phone] Tank Waldrop MD Prostate cancer ([facility]/HCC) (Primary Dx) 12/25/2024 Refill [facility] Oncology [facility] Hematology [facility] [address] [place] [address] Tank Waldrop MD 12/18/2024 External Device Data STL ABSTRACTION Provider, Abstract 12/18/2024 External Device Data STL ABSTRACTION Provider, Abstract 12/18/2024 External Device Data STL ABSTRACTION Provider, Abstract 12/12/2024 10:30 AM CDT Office Visit [facility] Oncology [facility] Hematology [facility] [address] [place] [address] Tank Waldrop MD Prostate cancer ([facility]/HCC) (Primary Dx); Metastasis to bone (CMS/HCC) from [...] Date Smoking Tobacco: Never Smokeless Tobacco: Never Tobacco Cessation:Counseling Given: Not Answered Alcohol Use Standard Drinks/Week Comments Yes 0 (1 standard drink = 0.6 oz pur e alcohol) Occasionally Sex and Gender Information Value Date Recorded Sex Assigned at Not on file 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 Gender Identity Not on file Sexual Orientation Not on file Last Filed Vital Signs Vital Sign Reading Time Taken Comments Blood Pressure 138/78 02/13/2025 9:25 AM CDT Pulse 68 02/13/2025 9:25 AM CDT Temperature 36.3 C (97.4 F) 02/13/2025 9:25 AM CDT Respiratory Rate 15 02/13/2025 9:25 AM CDT Oxygen Saturation 97% 02/13/2025 9:25 AM CDT Inhaled Oxygen Concentration - - Weight 87.1 kg (192 lb) 02/13/2025 9:25 AM CDT Height 182.9 cm (6') 12/12/2024 10:29 AM CDT Body Mass Index 26.04 12/12/2024 10:29 AM CDT Plan of Treatment Upcoming Encounters Date Type Department Care Team (Late st Contact Info) Description 03/06/2025 11:30 AM CDT Office Visit [facility] Oncology and Hematology - [place] [address] [facility] [address] [place] [address] Tank Waldrop MD [address] [facility] [address] [place] [address] Health Maintenance Due Date Last Done Comments Pre-Diabetes and Diabetes Screening 1954 DTAP/TDAP/TD VACCINES (1 - Tdap) 1973 COLORECTAL SCREENING 1999 Colorectal Cancer Screening 1999 FIT-DNA Q 3 years 1999 FIT/FOBT Q 1 year 1999 Flex Sig/CT Colonography Q 5 years 1999 ZOSTER VACCINE (1 of 2) 2004 COVID-19 Vaccine (4 2023-2 5 season) 2024 07/31/2021, 12/17/2020, 11/19/2020 RSV VACCINE (60+ or ) (1 - 1-dose 75+ series) 2029 PNEUMOCOCCAL VACCINE 50+ YEARS Completed 05/17/2022 , 08/19/2020 INFLUENZA VACCINE Completed 07/10/2024, , 06/19/2022, Additional history exists Procedures Procedure Name Priority Date/Time Associated Diagnosis Comments COMPREHENSIVE METABOLIC PANEL Routine 01/23/2025 11:55 AM CDT BASIC METABOLIC PANEL Routine 01/23/2025 11:52 AM CDT CBC MIXED CELL DIFFERENTIAL Routine 01/23/2025 9:41 AM CDT BASIC METABOLIC PANEL Routine 01/02/2025 1:41 PM CDT from Last 3 Months Results * COMPREHENSIVE METABOLIC PANEL (01/23/2025 11:55 AM CDT) Blood us Tank Waldrop MD CHEMISTRY ORDERABLES Final Resu lt * BASIC METABOLIC PANEL (01/23/2025 11:52 AM CDT) Only the most recent of2 resultswithin the time period is included. Blood us Tank Waldrop MD CHEMISTRY ORDERABLES Final Resu lt * CBC MIXED CELL DIFFERENTIAL (01/23/2025 9:41 AM CDT) Blood us Tank Waldrop MD HEMATOLOGY ORDERABLES Final Res ult from Last 3 Months Insurance MEDICARE PART A AND B [facility] [id number] [place] [id number]
--- OUTSIDE RECORDS SUMMARY | 2025-02-19 09:38 | XMS_ITS | Encounter Summary ---
Author Organization [facility] Address [address] [place] [address] Care Team Providers Care Hat Brim And Crown Laminating Operator Name Role Phone Antonio Rose MD Primary Care Provider [phone] Encounter Details Date Type Department Care Team (Late st Contact Info) Description 08/13/2020 Lab Requisition [facility] DermPath Lab [address] [place] [address] Ha Le MD [address] [address] Social History Tobacco Use Types Packs/Day Years Used Date Smoking Tobacco: Never Assessed Sex and Gender Information Value Date Recorded Sex Assigned at Not on file 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 Gender Identity Not on file Sexual Orientation Not on file documented as of this encounter Plan of Treatment Not on file documented as of this encounter Procedures Procedure Name Priority Date/Time Associated Diagnosis Comments DERMATOPATHOLOGY Routine 08/11/2020 12:0 0 AM WOOL BATTING WORKER documented in this encounter Results * DERMATOPATHOLOGY (08/11/2020 12:00 AM WOOL BATTING WORKER) Case Report Dermatopathology Report Case: [id number] Authorizing Provider: Ha Le MD Collected: 08/11/2020 12:00 AM Ordering Location: [facility] DermPath Lab Received: 08/13/2020 06:12 AM Pathologist: Reina Mario MD Specimens: A) - Skin, right ala B) - Skin, right medial clavicle 0 4:47 PM WOOL BATTING WORKER DERMATOPATHOLOGY LABORATORY Final Diagnosis Specimen A. SKIN, right ala: HYPERPLASTIC (HYPERTROPHIC) ACTINIC KERATOSIS WITH ASSOCIATED HUMAN PAPILLOMA VIRUS CHANGES; EXTENDING TO THE BASE OF THE SPECIMEN (L57.0) (see microscopic description and comment) Specimen B. SKIN, right medial clavicle: BASAL CELL CARCINOMA, NODULAR TYPE (C44.519) 0 4:47 PM [facility] DERMATOPATHOLOGY LABORATORY at [address] WOOL BATTING WORKER Clinical History A: Basal cell carcinoma vs squamous cell carcinoma vs other. Path # [id number]. B: Basal cell carcinoma vs squamou scell carcinoma vs other. Path # [id number] 0 4:47 PM [facility] DERMATOPATHOLOGY LABORATORY Gross Description Specimen A: Received is one formalin filled container labeled with the patient's name and designated right ala. The specimen consists of a shave biopsy measuring [id number]. Jar 0. Specimen B: Received is one formalin filled container labeled with the patient's name and designated right medial clavicle. The specimen consists of a shave biopsy measuring [id number]. Jar 0. 0 4:47 PM [facility] DERMATOPATHOLOGY LABORATORY Microscopic Description Specimen A. SKIN, [...] ratio and peripheral palisading. 0 4:47 PM [facility] DERMATOPATHOLOGY [facility]ORATORY Disclaimer An external and internal positive and negative controls are appropriate for the histochemical, immunohistochemical and immunofluorescence stain(s) in this case (if any), except where stated explicitly. The performance characteristics of the stain(s) cited in this report were developed and its performance characteristic determined by the Dermatopathology Laboratory at [facility], directed by Dr. Ismael Mario. These tests need not be, and therefore are not, approved by the [place] Food and Drug Administration. The tests are used for clinical purposes. Billing Codes Specimen Charges Stain Charges 92577 71434 1 1 0 4:47 PM [facility] DERMATOPATH[facility]Y [facility] Embedded Images 0 4:47 PM WOOL BATTING WORKER DERMATOPATHOLOGY LABORATORY Pathology/Cytology TISSUE SPECIMEN FROM SKIN / Unknown 08/11/2020 08/13/2020 6:12 AM WOOL BATTING WORKER Miscellaneous samples (specimen) TISSUE SPECIMEN FROM SKIN / Unknown 08/11/2020 08/13/2020 6:12 AM WOOL BATTING WORKER Ha Le MD LAB - PATHOLOGY/CYTOLOGY ORDER TENA Final Result DERMATOPATHOLOGY LABORATORY [facility] - Department of Dermatology [facility] [address] [place] [address], [address] [phone] documented in this encounter Visit Diagnoses Not on filedocumented in this encounter Care Teams Hat Brim And Crown Laminating Operator Relationship Specialty Start Date End Date Antonio Rose MD [address] [place] [address] PCP - General 08/12/20 documented as of this encounter
--- OUTSIDE RECORDS SUMMARY | 2025-02-19 09:39 | XMS_ITS | Encounter Summary ---
Author Organization [facility] Address [address] [place] [address] Care Team Providers Care Journeyman Apprentice Electricians Name Role Phone Antonio Rose MD Primary Care Provider Winsome Garcia MD Primary Care Pro vider Encounter Details Date Type Department Care Team (Latest Contact Info) Description 07/23/2019 Ophth Exam Ophthalmology Poncho Singleton MD [address] [facility] [place] [address] Social History Tobacco Use Types Packs/Day Years Used Date Smoking Tobacco: Never Sex and Gender Information Value Date Recorded Sex Assigned at Not on file 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
--- OUTSIDE RECORDS SUMMARY | 2025-02-19 09:39 | XMS_ITS | Referral Summary ---
Author Organization [facility] Address [address] [place] [address] Care Team Providers Care Pure Culture Operator Name Role Phone Winsome Garcia MD Primary Care Pro vider Encounters Date Type Department Care Team Description 01/08/2025 11:15 AM CDT Office Visit [facility] Primary Care at [address] [phone] Winsome Garcia MD Pre-diabetes (Primary Dx); Mixed hyperlipidemia; Prostate cancer (HCC); Metastasis to bone (HCC); History of skin cancer; Bilateral impacted cerumen; Encounter for annual wellness visit (AWV) in Medicare patient; Vitamin D deficiency 01/01/2025 Results Follow-Up [facility] Family Medicine [address] [address] Winsome Garcia MD Lipid panel, Comprehensive metabolic panel, Hemoglobin A1c, eGFR 01/01/2025 7:10 AM CDT Lab [facility] Office Building [address] [phone] Mixed hyperlipidemia; Pre-diabetes 12/31/2024 Telephone [facility] Primary Care at [address] [phone] Winsome Garcia MD Medical Question/Miscellaneou s from Last 3 Months Allergies No known active allergies Medications multivitamin capsule Take 1 capsule by mouth daily Active flaxseed oiL 1,000 mg capsule Take by mouth Activ e psyllium, aspartame, SF (METAMUCIL SF) 3.4 gram packet Take 1 packet by mouth daily Active simvastatin (ZOCOR) 20 mg tabletIndications: Mixed hyperlipidemia TAKE 1 TABLET BY MOUTH EVERY DAY 90 tablet 1 4 Active darolutamide (NUBEQA) 300 mg tablet 5 Active dexAMETHasone (DECADRON) 4 mg tablet 5 Active lidocaine-prilocai ne cream Apply topically 5 Active ondansetron (ZOFRAN) 8 mg tablet Take 1 tablet (8 mg total) by mouth every 8 (eight) hours as needed 5 Active predniSONE (DELTASONE) 5 mg tablet Take 1 tablet (5 mg) by mouth 5 Active degarelix (FIRMAGON) 120 mg injection Inject under the skin Active leuprolide acetate (ELIGARD, 6 MONTH, SUBQ) Inject under the skin Active blood-glucose meter kitIndications:Pre -diabetes Use meter to test blood sugar 1 kit 5 Active lancets miscIndications:Pr e-diabetes Test daily before breakfast or 2 hours after your biggest meal. 100 each 1 5 Active blood glucose diagnostic (glucose blood) stripIndications:P re-diabetes Use to test blood sugar up to 3 times a day 100 each 3 5 Active Active Problems Problem Noted Date Diagnosed Date Metastasis to bone 01/08/2025 Assessment & Plan (01/08/2025 11:15 AM CDT): Following with urology & onc Getting chemo Pre-diabetes 07/10/2024 Assessment & Plan (01/08/2025 11:27 AM CDT): Lab Results Component Value Date HGBA1C 6.3 (H) 01/01/2025 Uncontrolled/worsening likely related to recent prednisone use Discussed monitoring blood sugar at home Discussed diet/exercise Recheck before next appointment Assessment & Plan (07/10/2024 1:14 PM CDT): [...] Reviewed medications and supplements Specialists: urology, qa lead, & optho no evidence of cognitive impairment HCM: orders placed as needed Assessment & Plan (06/03/2023 8:46 AM CDT): Reviewed PMH & PHQ Screening PHQ-2 Total Score (If total score is 3 or more points, staff should administer the PHQ-9): 0 Hearing/vision screening reviewed, referrals placed as needed Fall risk reviewed Reviewed medications and supplements Specialists: urology, radiation oncology, qa lead, & optho no evidence of cognitive impairment HCM: orders placed as needed Assessment & Plan (05/17/2022 1:28 PM CDT): Reviewed PMH & PHQ Screening PHQ-2 Total Score (If total score is 3 or more points, staff should administer the PHQ-9): 0 Hearing/vision screening reviewed, referrals placed as needed Fall risk reviewed Reviewed medications and supplements Specialists: urology, qa lead, orthopedics & optho no evidence of cognitive impairment HCM: orders placed as needed Elevated glucose 11/17/2021 Assessment & Plan (06/03/2023 8:39 AM CDT): stable Assessment & Plan (11/26/2022 3:26 PM REAL ESTATE REPRESENTATIVE): Rechekc a1c Assessment & Plan (05/17/2022 12:59 PM CDT): Lab Results Component Value Date HGBA1C 5.7 (H) 05/11/2022 Improved Continue to monitor History of vitreous hemorrhage of right eye 01/2019 Assessment & Plan (07/31/2019 12:35 PM REAL ESTATE REPRESENTATIVE): F/u from ED on 07/23/19. Slowly improving though still dense vitreous (vit) heme centrally - vision stable from last visit - superotemporal tear with adequate laser surrounding, no subretinal fluid around tear or retinal detachment - recommend follow-up in 4 weeks to assess how vitreous (vit) heme is settling - pt has scheduled appointment with rounder hand in early August (about one month). Plans to continue following up there. - will RTC with us as needed Mixed hyperlipidemia 12/24/2011 Assessment & Plan (01/08/2025 11:13 AM CDT): Lab Results Component Value Date LDLCALC 93 01/01/2025 controlled continue statin Assessment & Plan (07/10/2024 1:44 PM CDT): LDL uncontrolled >100 Motivated to work on diet continue statin Recheck before next appointment Assessment & Plan (01/02/2024 1:52 PM CDT): LDL controlled <100 Continue statin Assessment & Plan (06/03/2023 8:39 AM CDT): Stable Continue statin Assessment & Plan (11/26/2022 5:15 PM REAL ESTATE REPRESENTATIVE): Recheck lipids Continue statin pending results Discussed diet Assessment & Plan (05/17/2022 12:58 PM CDT): Reviewed lipids, LDL mildly above goal Discussed diet/exercise Continue simvastatin Continue to monitor Assessment & Plan (11/17/2021 1:39 PM REAL ESTATE REPRESENTATIVE): Lipids at goal LFT within normal limits Continue simvastatin Prostate cancer Assessment & Plan (01/08/2025 11:15 AM CDT): Following with urology & oncology Getting chemo Assessment & Plan (07/10/2024 1:45 PM CDT): Following with urology Assessment & Plan (01/02/2024 1:52 PM CDT): Following with urology & radiation oncology Assessment & Plan (06/03/2023 8:45 AM CDT): Following with urology & radiation oncology Assessment & Plan (11/26/2022 3:27 PM REAL ESTATE REPRESENTATIVE): Following with urology Assessment & Plan (05/17/2022 12:57 PM CDT): Following with urology Assessment & Plan (11/17/2021 1:36 PM REAL ESTATE REPRESENTATIVE): Following with urology Arthritis of big toe Assessment & Plan (01/02/2024 1:52 PM CDT): stable Assessment & Plan (06/03/2023 8:46 AM CDT): stable Assessment & Plan (11/26/2022 3:26 PM REAL ESTATE REPRESENTATIVE): Following with orthopedics Assessment & Plan (05/17/2022 12:58 PM CDT): Following with orthopedics Assessment & Plan (11/17/2021 1:37 PM REAL ESTATE REPRESENTATIVE): Stable Following with orthopedics History of skin cancer Assessment & Plan (01/08/2025 11:13 AM CDT): Following with qa lead Assessment & Plan (07/10/2024 1:13 PM CDT): Following with qa lead Assessment & Plan (01/02/2024 1:52 PM CDT): Following with qa lead Assessment & Plan (06/03/2023 8:39 AM CDT): Following with qa lead Assessment & Plan (11/26/2022 3:26 PM REAL ESTATE REPRESENTATIVE): Following with qa lead Assessment & Plan (05/17/2022 12:57 PM CDT): Following with qa lead Assessment & Plan (11/17/2021 1:37 PM REAL ESTATE REPRESENTATIVE): Following with derm Resolved Problems Problem Noted [...] on file Legal Sex Male 9:49 AM REAL ESTATE REPRESENTATIVE Gender Identity Not on file Sexual Orientation Not on file Last Filed Vital Signs Vital Sign Reading Time Taken Comments Blood Pressure 126/80 01/08/2025 11:02 AM CDT Pulse 66 01/08/2025 11:02 AM CDT Temperature 36.1 C (97 F) 01/08/2025 11:02 AM CDT Respiratory Rate 18 01/08/2025 11:02 AM CDT Oxygen Saturation 99% 01/08/2025 11:02 AM CDT Inhaled Oxygen Concentration - - Weight 87.7 kg (193 lb 6.4 oz) 01/08/2025 11:02 AM CDT Height 182.9 cm (6') 01/08/2025 11:02 AM CDT Body Mass Index 26.23 01/08/2025 11:02 AM CDT Plan of Treatment Not on file Procedures Procedure Name Priority Date/Time Associated Diagnosis Comments EGFR Routine 01/01/2025 7:15 AM CDT Pre-diabetes Mixed hyperlipidemia HEMOGLOBIN A1C Routine 01/01/2025 7:15 AM CDT Pre-diabetes COMPREHENSIVE METABOLIC PANEL Routine 01/01/2025 7:15 AM CDT Pre-diabetes Mixed hyperlipidemia LIPID PANEL Routine 01/01/2025 7:15 AM CDT Mixed hyperlipidemia HEPATITIS C ANTIBODY Routine 07/04/2024 7:16 AM CDT Need for hepatitis C screening test Annual physical exam HM COLONOSCOPY Routine 02/16/2024 from Last 3 Months or Most Recently Relevant to Health Maintenance Results * eGFR (01/01/2025 7:15 AM CDT) eGFR 81 >=60 mL/min/1. 73 m2 Comment: Interpretive Data Reference Interval Normal >/= 90 mL/min/1.73m2 Mildly decreased* 60 - 89 mL/min/1.73m2 Mildly to moderately decreased 45 - 59 mL/min/1.73m2 Moderately to severely decreased 30 - 44 mL/min/1.73m2 Severely decreased 15 - 29 mL/min/1.73m2 Kidney Failure < 15 mL/min/1.73m2 *Relative to young adult level Estimated glomerular filtration rate is determined by the 2020 CKD-EPI equation recommended by the National Kidney Foundation (A Unifying Approach to GFR Estimation: Recommendations of the NKF-ASK Task Force on Reassessing the Inclusion of Race in Diagnosing Kidney Disease, JASN 2020). The CKD-EPI equation should not be used for patients with unstable renal function and has not been validated in children and those over 70. Current interpretive data was last reviewed 2021. Testing performed by: [address] [address] Blood 01/01/2025 7:15 AM CDT 01/01/2025 9:40 AM CDT Winsome Garcia MD LAB BLOOD ORDERAB LES Final Result Performing Organization Address [facility] Co de Phone Number [place] [address] [facility] [employer] [place] [address] * (ABNORMAL) Hemoglobin A1c (01/01/2025 7:15 AM CDT) [facility] Hgb A1C 6.3(H) 4.0 - 5.6 % Comment:Testing performed by : [address] [address] Estimated Average Glucose 134 mg/dL JOSEPH VICK Comment: The ADA recommends reporting an estimated Average Glucose (eAG) with all Hemoglobin A1c results using the equation derived from a study of 507 normal and diabetic adults. Minority populations were underrepresented and children were not included. (Diabetes Care 31:5736-3367, 2008). The eAG is not equivalent to a fasting glucose. Testing performed by: [address] [address] Blood 01/01/2025 7:15 AM CDT 01/01/2025 9:42 AM CDT Winsome Garcia MD LAB BLOOD ORDERAB LES Final Result Performing Organization Address City/[facility] Co de Phone Number [place] [phone] [facility] [employer] [place] [address] * Lipid panel (01/01/2025 7:15 AM CDT) [facility] Signature Cholesterol 176 30 - 199 mg/dL Comment: Interpretive Data Ages < or = 19 years Acceptable: <170 mg/dL Borderline high: 170-199 mg/dL High: >or= 200 mg/dL Ages > or = 20 years Desirable: <200 mg/dL Borderline high: 200-239 mg/dL High: >or= 240 mg/dL Literature References: 1. Expert Panel on Integrated Guidelines for Cardiovascular Health and Risk Reduction in Children and Adolescents. Pediatrics 2011;128:S213 2. NCEP Expert Panel. Circulation 2004;110:227 Current Interpretive Data was last revised on 2018. Testing performed by: [address] [address] Triglycerides 132 <=149 mg/dL [facility] Comment: Interpretive Data Ages < or = 9 years Acceptable: <75 mg/dL Borderline high: 75-99 mg/dL High: >or= 100 mg/dL Ages 10 to 20 years Acceptable: <90 mg/dL Borderline high: 90-129 mg/dL High: >or= 130 mg/dL Ages > or = 20 years Desirable: <150 mg/dL Borderline high: 150-199 mg/dL High: 200-499 mg/dL Very high: >or= 499 mg/dL Literature References: 1. Expert Panel on Integrated Guidelines for Cardiovascular Health and Risk Reduction in Children and Adolescents. Pediatrics 2011;128:S213 2. NCEP Expert Panel. Circulation 2004;110:227 Current Interpretive Data was last revised on 2018. Testing performed by: [address] [address] HDL 60 >=40 mg/dL JOSEPH Comment: Interpretive Data Ages < or = 19 years Acceptable: >45 mg/dL Borderline low: 40-45 mg/dL Low: <40 mg/dL Ages > or = 20 years Desirable: >or= 60 mg/dL Low: <40 mg/dL Literature References: 1. Expert Panel on Integrated Guidelines for Cardiovascular Health and Risk Reduction in Children and Adolescents. Pediatrics 2011;128:S213 2. NCEP Expert Panel. Circulation 2004;110:227 Current Interpretive Data was last revised on 2018. Testing performed by: [address] [address] LDL, calculated 93 <=129 mg/dL JOSEPH VICK Comment: Interpretive Data Ages < or = 19 years Acceptable: <110 mg/dL Borderline high: 110-129 mg/dL High: >or= 130 mg/dL Ages > or = 20 years Optimal: <100 mg/dL Near optimal: 100-129 mg/dL Borderline high: 130-159 mg/dL High: >160 mg/dL Calculated using the Nino LDL-C estimating equation. This equation was implemented on 2024. Prior to this date LDL-C was estimated using the Friedewald equation. Literature References: 1. Expert Panel on Integrated Guidelines for Cardiovascular Health and Risk Reduction in Children and Adolescents. Pediatrics 2011;128:S213 2. NCEP Expert Panel. Circulation 2004;110:227 3. Nino Hunag et al. BONY Cardiol. 2019January 24;5(5):540-548. doi: 10.1001/jamacardio.2020.0013 Current Interpretive Data was last revised on 2024. Testing performed by: [address] [address] Non-HDL Cholesterol 116 mg/dL JOSEPH VICK Comment: Interpretive Data Ages < or = 19 years Acceptable: <120 mg/dL Borderline high: 120-144 mg/dL High: >145 mg/dL Ages > or = 20 years When triglycerides are >200 mg/dL, Non-HDL cholesterol is a secondary target of therapy with treatment goals that are 30 mg/dL greater than the LDL cholesterol target. Literature References: 1. Expert Panel on Integrated Guidelines for Cardiovascular Health and Risk Reduction in Children and Adolescents. Pediatrics 2011;128:S213 2. NCEP Expert Panel. Circulation 2004;110:227 Current Interpretive Data was last revised on 2018. Testing performed by: [address] [address] Chol/HDL ratio 3 JOSEPH Comment:Testing performed by : [address] [address] Blood 01/01/2025 7:15 AM CDT 01/01/2025 9:40 AM CDT us Winsome Garcia MD LAB BLOOD ORDERAB LES Final Result JOSEPH [address] [facility] Department [place] [address] * Comprehensive metabolic panel (01/01/2025 7:15 AM CDT) Sodium 138 135 - 145 mmol/L Comment:Testing performed by : [address] [address] Potassium, pl 4.6 3.3 - 4.9 mmol/L JOSEPH Comment:Testing performed by : [address] [address] Chloride 103 97 - 110 mmol/L JOSEPH Comment:Testing performed by : [address] [address] CO2 26 22 - 32 mmol/L JOSEPH Comment:Testing performed by : [address] [address] Anion gap 9 2 - 15 mmol/L JOSEPH Comment:Testing performed by : [address] [address] BUN 17 6 - 25 mg/dL JOSEPH Comment:Testing performed by : [address] [address] Creatinine 1.00 0.80 - 1.30 mg/dL JOSEPH Comment:Testing performed by : [address] [address] Glucose 128 70 - 199 mg/dL JOSEPH Comment: Interpretive Data Fasting glucose >/= 126 mg/dl is diagnostic for diabetes. Fasting is defined as no caloric intake for at least 8 hours. Fasting glucose between 100 mg/dl to 125 mg/dl is diagnostic of prediabetes. In a patient with classic symptoms of hyperglycemia or hyperglycemic crisis, a random glucose >/= 200 mg/dl is diagnostic for diabetes. In the absence of unequivocal hyperglycemia, results should be confirmed by repeat testing. The classification and Diagnosis of Diabetes Diabetes Care 2021; 46: S19-S40. Current interpretive data was last revised 2022. Testing performed by: [facility], [address] [place] [address]., [address] Calcium 9.0 8.5 - 10.3 mg/dL JOSEPH Comment:Testing performed by : [address] [address] Bilirubin, total 0.6 0.1 - 1.2 mg/dL [facility] Comment:Testing performed by : [address] [address] Protein, pl 7.2 6.5 - 8.5 g/dL [facility] Comment:Testing performed by : [address] [address] Albumin 4.1 3.5 - 5.0 g/dL [facility] Comment:Testing performed by : [address] [address] Alk phos 82 40 - 130 Units/L [facility] Comment:Testing performed by : [address] [address] ALT 20 7 - 55 Units/L [facility] Comment:Testing performed by : [address] [address] AST 18 10 - 50 Units/L [facility] Comment:Testing performed by : [address] [address] Blood 01/01/2025 7:15 AM CDT 01/01/2025 9:40 AM CDT Winsome Garcia MD LAB BLOOD ORDERAB LES Final Result JOSEPH [address] [facility] Department of Laboratories [place], [place] [id number] * Hepatitis C antibody Blood (07/04/2024 7:16 [...] LAB MICROBIOLOGY - GENERAL ORDERABLES Final Result JOSEPH [address] [facility] Department [place] [address] * HM COLONOSCOPY (02/16/2024) Greta Provider HEALTH MAINTENANCE Final Result from Last 3 Months or Most Recently Relevant to Health Maintenance Insurance MEDICARE [facility] MEDICARE [facility] MEDICARE [facility] Care Teams Pure Culture Operator Relationship Specialty Start Date End Date Winsome Garcia MD PCP - General Family Medicine 11/16/21
--- OUTSIDE RECORDS SUMMARY | 2025-02-19 09:39 | XMS_ITS | Clinical Summary ---
Author Organization [facility] [employer] Address [address] [place] [address] Care Team Providers Care Sensitizer Name Role Phone Antonio Rose MD Primary Care Provider [phone] Source Comments [facility] [employer],non-owned Affiliates and Associated Physician Practices is amultiple site organization consisting of ambulatory clinics and hospital sitesin [place], [place], [place] and [place]. This disclosure is being madepursuant to the Care Everywhere program and may not contain all information available regarding this patient. 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 Gender Identity Not on file Sexual Orientation [...] VACCINE ( - 2023-2 5 season) 2024 DEPRESSION SCREENING 09/26/2024 INFLUENZA VACCINE (Season Ended) 2025 Respiratory Syncytial Virus (RSV) Vaccine Pt: or [...] on patient's age to complete this topic Insurance MEDICARE [facility] * Guarantor: VALENTE PRESCOTT Account Type Relation to Patient Date of Phone Billing Address Personal/Family [address] [place] [address] MEDICARE AAR Member Subscriber Plan / Payer (Ef fective for All Dates) Name:Valente Prescott Relation to Subscriber:Self Name:Valente Prescott Payer ID:Not on file Group ID:Not on file Type:Commercial Address: [place] [phone] * Guarantor: VALENTE PRESCOTT Account Type Relation to Patient Date of Phone Billing Address Personal/Family [address] [place] [address] MEDICARE [facility] * Guarantor: VALENTE PRESCOTT Account Type Relation to Patient Date of Phone Billing Address Personal/Family [address] [place] [address] MEDICARE [employer] Care Teams Sensitizer Relationship Specialty Start Date End Date Antonio Rose MD [address] [place] [address] PCP - General 08/12/20
--- OUTSIDE RECORDS SUMMARY | 2025-02-19 09:39 | XMS_ITS | Encounter Summary ---
Author Organization [facility] Address [address] [place] [address] Care Team Providers Care Waste Duster Name Role Phone Winsome Garcia MD Primary Care Pro vider Encounter Details Date Type Department Care Team (Latest Contact Info) Description 01/01/2025 Results Follow-Up 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
--- OUTSIDE RECORDS SUMMARY | 2025-02-19 09:39 | XMS_ITS | Encounter Summary ---
Author Organization [facility] Address [address] [place] [address] Care Team Providers Care Miner Name Role Phone Antonio Rose MD Primary Care Provider Encounter Details Date Type Department Care Team (Late st Contact Info) Description 04/08/2021 Lab Requisition [facility] DermPath Lab [address] [place] [address] [place] [address] Ha Le MD [address] [place] [address] Social History Tobacco Use Types Packs/Day Years Used Date Smoking Tobacco: Never Assessed Sex and Gender Information Value Date Recorded Sex Assigned at Not on file Legal Sex Male 3:53 PM GYNECOLOGIST Gender Identity Not on file Sexual Orientation Not on file documented as of this encounter Plan of Treatment Not on file documented as of this encounter Procedures Procedure Name Priority Date/Time Associated Diagnosis Comments DERMATOPATHOLOGY Routine 04/06/2021 3:33 AM CDT documented in this encounter Results * DERMATOPATHOLOGY (04/06/2021 3:33 AM CDT) Case Report Dermatopathology Report Case: [id number] Authorizing Provider: Ha Le MD Collected: 04/06/2021 03:33 AM Ordering Location: [facility] D[facility] Lab Received: 04/08/2021 05:40 AM Pathologist: Reina Mario MD Specimen: Skin, right crown 4:52 PM CDT DERMATOPATHOLOGY LABORATORY Final Diagnosis Specimen A. SKIN, right crown: HYPERPLASTIC (HYPERTROPHIC) ACTINIC KERATOSIS (L57.0) OVERLYING CUTANEOUS HORN (L85.8) 1 4:52 PM CDT DERMATOPATHOLOGY LABORATORY at 1652 CDT Clinical History AK vs BCCA vs SCCA. Path # [id number]. 4:52 PM CDT DERMATOPATHOLOGY LABORATORY Gross Description Specimen A: Received is one formalin filled container labeled with the patient's name and designated right crown. The specimen consists of a shave biopsy measuring [id number]. Jar 0. 1 4:52 PM CDT DERMATOPATHOLOGY LABORATORY Microscopic Description [...] characteristic determined by the Dermatopathology Laboratory at [facility], directed by Dr. Ismael Mario. These tests need not be, and therefore are not, approved by the [place] Food and Drug Administration. The tests are used for clinical purposes. Billing Codes Specimen Charges Stain Charges 17688 1 1 4:52 PM CDT DERMATOPATHOLOGY LABORATORY Embedded Images 4:52 PM CDT DERMATOPATHOLOGY LABORATORY Pathology/Cytolo gy TISSUE SPECIMEN FROM SKIN / Unknown 04/06/2021 3:33 AM CDT 04/08/2021 5:40 AM CDT us Ha Le MD LAB - PATHOLOGY/CYTOLOGY ORDER TENA Final Result DERMATOPATHOLOGY LABORATORY [facility] - Department of Dermatology [address] [phone] documented in this encounter Visit Diagnoses Not on filedocumented in this encounter Care Teams Miner Relationship Specialty Start Date End Date Antonio Rose MD [address] [place] [address] PCP - General 08/12/20 documented as of this encounter
--- OUTSIDE RECORDS SUMMARY | 2025-02-19 09:39 | XMS_ITS | Encounter Summary ---
Author Organization [facility] [employer] [facility] Address [address] [place] [address] Care Team Providers Care Flag Maker Name Role Phone Unavailable Primary Care Provider Unavailabl e Encounter Details Date Type Department Care Team (Late Contact Info) Description 02/18/2025 Orders Only [facility] (Former[facility])[3] Oncology and [facility] Artis Butcher [address] [place] [address] Tank Waldrop MD [address] [place] [address] [place] [phone] Prostate cancer (CMS/HCC) Social History Tobacco Use Types Packs/Day Years Used Date Smoking Tobacco: Never Smokeless Tobacco: Never Alcohol Use Standard Drinks/Week Comments Yes 0 (1 standard drink = 0.6 oz pur e alcohol) Occasionally Sex and Gender Information Value Date Recorded Sex Assigned at Not on file Legal Sex Male 3:35 PM [employer] SAL[employer] Gender Identity Not on file Sexual Orientation Not on file documented as of this encounter Plan of Treatment Upcoming Encounters Date Type Department Care Team (Late Contact Info) Description 03/06/2025 11:30 AM CDT Office Visit [facility] ([facility]3] Oncology and Hematology [facility] Artis Butcher [address] [place] [address] Tank Waldrop MD [address] [place] [address] [employer] [address] [place] [phone] documented as of this encounter Visit Diagnoses Diagnosis Prostate cancer (CMS/HCC) Malignant neoplasm of prostate documented in this encounter
--- OUTSIDE RECORDS SUMMARY | 2025-02-19 09:39 | XMS_ITS | Clinical Summary ---
Author Organization [facility] Address [address] [place] [address] Care Team Providers Care Senior C Web Developer Name Role Phone Winsome Garcia MD Primary [...] reviewed Reviewed medications and supplements Specialists: urology, admissions specialist, & optho no evidence of cognitive impairment HCM: orders placed as needed Assessment & Plan (06/03/2023 8:46 AM CDT): Reviewed PMH & FH PHQ Screening PHQ-2 Total Score (If total score is 3 or more points, staff should administer the PHQ-9): 0 Hearing/vision screening reviewed, referrals placed as needed Fall risk reviewed Reviewed medications and supplements Specialists: urology, radiation oncology, admissions specialist, & optho no evidence of cognitive impairment HCM: orders placed as needed Assessment & Plan (05/17/2022 1:28 PM CDT): Reviewed [facility] & PHQ Screening PHQ-2 Total Score (If total score is 3 or more points, staff should administer the PHQ-9): 0 Hearing/vision screening reviewed, referrals placed as needed Fall risk reviewed Reviewed medications and supplements Specialists: urology, admissions specialist, orthopedics & optho no evidence of cognitive impairment HCM: orders placed as needed Elevated glucose 11/17/2021 Assessment & Plan (06/03/2023 8:39 AM CDT): stable Assessment & Plan (11/26/2022 3:26 PM OFFICE MANAGER): Rechekc a1c Assessment & Plan (05/17/2022 12:59 PM CDT): Lab Results Component Value Date HGBA1C 5.7 (H) 05/11/2022 Improved Continue to monitor History of vitreous hemorrhage of right eye 01/2019 Assessment & Plan (07/31/2019 12:35 PM OFFICE MANAGER): F/u from ED on 07/23/19. Slowly improving though still dense vitreous (vit) heme centrally - vision stable from last visit - superotemporal tear with adequate laser surrounding, no subretinal fluid around tear or retinal detachment - recommend follow-up in 4 weeks to assess how vitreous (vit) heme is settling - pt has scheduled appointment with product management specialist in early August (about one month). Plans [...] statin Assessment & Plan (11/26/2022 5:15 PM OFFICE MANAGER): Recheck lipids Continue statin pending results Discussed diet Assessment & Plan (05/17/2022 12:58 PM CDT): Reviewed lipids, LDL mildly above goal Discussed diet/exercise Continue simvastatin Continue to monitor Assessment & Plan (11/17/2021 1:39 PM OFFICE MANAGER): Lipids at goal LFT within normal limits [...] oncology Assessment & Plan (11/26/2022 3:27 PM OFFICE MANAGER): Following with urology Assessment & Plan (05/17/2022 12:57 PM CDT): Following with urology Assessment & Plan (11/17/2021 1:36 PM OFFICE MANAGER): Following with urology Arthritis of big toe Assessment & Plan (01/02/2024 1:52 PM CDT): stable Assessment & Plan (06/03/2023 8:46 AM CDT): stable Assessment & Plan (11/26/2022 3:26 PM OFFICE MANAGER): Following with orthopedics Assessment & Plan (05/17/2022 12:58 PM CDT): Following with orthopedics Assessment & Plan (11/17/2021 1:37 PM OFFICE MANAGER): Stable Following with orthopedics History of skin cancer Assessment & Plan (01/08/2025 11:13 AM CDT): Following with admissions specialist Assessment & Plan (07/10/2024 1:13 PM CDT): Following with admissions specialist Assessment & Plan (01/02/2024 1:52 PM CDT): Following with admissions specialist Assessment & Plan (06/03/2023 8:39 AM CDT): Following with admissions specialist Assessment & Plan (11/26/2022 3:26 PM OFFICE MANAGER): Following with admissions specialist Assessment & Plan (05/17/2022 12:57 PM CDT): Following with admissions specialist Assessment & Plan (11/17/2021 1:37 PM OFFICE MANAGER): Following with derm Resolved Problems Problem Noted Date Diagnosed Date Resolved Date Subdural hematoma (CMS/HCC) 11/22/2011 11/16/2021 Encounters Date Type Department Care Team Description 01/08/2025 11:15 AM CDT Office Visit [facility] Primary Care at [address] [place] [address] Winsome Garcia MD Pre-diabetes (Primary Dx); Mixed hyperlipidemia; Prostate cancer (HCC); Metastasis to bone (HCC); History of skin cancer; Bilateral impacted cerumen; Encounter for annual wellness visit (AWV) in Medicare patient; Vitamin D deficiency 01/01/2025 7:10 AM CDT Lab [facility] [address] [place] [id number] Mixed hyperlipidemia; Pre-diabetes 01/01/2025 Results Follow-Up [facility] Family Medicine [address] [phone] Winsome Garcia MD Lipid panel, Comprehensive metabolic panel, Hemoglobin A1c, eGFR 12/31/2024 Telephone [facility] Medical [facility] Primary Care at [address] [place] [address] Winsome Garcia MD Medical Question/Miscellaneou s from Last 3 Months Immunizations Immunization Administration [...] on file Legal Sex Male 9:49 AM OFFICE MANAGER Gender Identity Not on file Sexual Orientation [...] 01/08/2025 11:02 AM CDT Plan of Treatment Health Maintenance Due Date Last Done Comments DTaP/Tdap/Td Vaccine (1 - Tdap) 1966 Zoster Vaccine (1 of 2) 1973 Covid-19 Vaccine (5 - 2023-2 5 season) 2024 06/28/2022, 07/31/2021, 12/17/2020, Additional history exists Depression Screening 07/10/2025 07/10/2024, 06/03/2023, 05/17/2022, Additional history exists Fall Risk Assessment 07/10/2025 07/10/2024, 06/03/2023, 05/17/2022, Additional history exists Well Visit 65+ 07/10/2025 07/10/2024, 09/0 04/2023, 05/17/2022 Colon Cancer Screening-Colonoscopy 02/15/2029 02/16/2024, 02/16/2024, [...] Results * eGFR (01/01/2025 7:15 AM CDT) [facility] eGFR 81 >=60 mL/min/1. 73 m2 Comment: [...] was last reviewed 2021. Testing performed by: [address] [address] Blood 01/01/2025 7:15 AM CDT 01/01/2025 9:40 AM CDT us Winsome Garcia MD LAB BLOOD ORDERAB LES Final Result JOSE[facility] [address] [facility] Department [place] [address] * (ABNORMAL) Hemoglobin A1c (01/01/2025 7:15 AM CDT) Hgb A1C 6.3(H) 4.0 - 5.6 % Comment:Testing performed by : [address] [address] Estimated Average Glucose 134 mg/dL JOSEPH VICK Comment: The ADA recommends reporting an estimated Average Glucose (eAG) with all Hemoglobin A1c results using the equation derived from a study of 507 normal and diabetic adults. Minority populations were underrepresented and children were not included. (Diabetes Care 31:2920-9667, 2008). The eAG is not equivalent to a fasting glucose. Testing performed by: [address] [address] Blood 01/01/2025 7:15 AM CDT 01/01/2025 9:42 AM CDT us Winsome Garcia MD LAB BLOOD ORDERAB LES Final Result [facility] VICK [address] [facility] Department [place] [address] * Lipid panel (01/01/2025 7:15 AM CDT) Cholesterol 176 30 - 199 mg/dL Comment: [...] last revised on 2018. Testing performed by: [address] [address] Triglycerides 132 <=149 mg/dL JOSEPH Comment: Interpretive Data Ages < [...] last revised on 2018. Testing performed by: [address] [address] HDL 60 >=40 mg/dL JOSEPH Comment: Interpretive [...] last revised on 2018. Testing performed by: [address] [address] LDL, calculated 93 <=129 mg/dL JOSEPH Comment: Interpretive Data Ages < [...] NCEP Expert Panel. Circulation 2004;110:227 3. Nino Eddy al. BONY Cardiol. 2019January 24;5(5):540-548. doi: 10.1001/jamacardio.2020.0013 Current Interpretive Data was last revised on 2024. Testing performed by: [address] [address] Non-HDL Cholesterol 116 mg/dL JOSEPH Comment: Interpretive Data Ages < [...] last revised on 2018. Testing performed by: [address] [address] Chol/HDL ratio 3 JOSEPH Comment:Testing performed by : [address] [address] Blood 01/01/2025 7:15 AM CDT 01/01/2025 9:40 AM CDT us Winsome Garcia MD LAB BLOOD ORDERAB LES Final Result [facility] Department [place] [address] * Comprehensive metabolic panel (01/01/2025 7:15 AM CDT) Sodium 138 135 - 145 mmol/L Comment:Testing performed by : [address] [address] Potassium, pl 4.6 3.3 - 4.9 mmol/L JOSEPH Comment:Testing performed by : [address] [address] Chloride 103 97 - 110 mmol/L JOSEPH Comment:Testing performed by : [address] [address] CO2 26 22 - 32 mmol/L JOSEPH Comment:Testing performed by : [address] [address] Anion gap 9 2 - 15 mmol/L JOSEPH Comment:Testing performed by : [address] [address] BUN 17 6 - 25 mg/dL JOSEPH Comment:Testing performed by : [address] [address] Creatinine 1.00 0.80 - 1.30 mg/dL JOSEPH Comment:Testing performed by : [address] [address] Glucose 128 70 - 199 mg/dL JOSEPH [...] was last revised 2022. Testing performed by: [address] [address] Calcium 9.0 8.5 - 10.3 mg/dL JOSEPH Comment:Testing performed by : [address] [address] Bilirubin, total 0.6 0.1 - 1.2 mg/dL JOSEPH Comment:Testing performed by : [address] [address] Protein, pl 7.2 6.5 - 8.5 g/dL JOSEPH Comment:Testing performed by : [address] [address] Albumin 4.1 3.5 - 5.0 g/dL JOSEPH Comment:Testing performed by : [address] [address] Alk phos 82 40 - 130 Units/L JOSEPH Comment:Testing performed by : [address] [address] ALT 20 7 - 55 Units/L JOSEPH Comment:Testing performed by : [address] [address] AST 18 10 - 50 Units/L JOSEPH Comment:Testing performed by : [address] [address] Blood 01/01/2025 7:15 AM CDT 01/01/2025 9:40 AM CDT us Winsome Garcia MD LAB BLOOD ORDERAB LES Final Result JO[facility]PH [address] [facility] Department of Laboratories [place], [place] [phone] * Hepatitis C antibody Blood (07/04/2024 7:16 [...] LAB MICROBIOLOGY - GENERAL ORDERABLES Final Result [facility] [address] [facility] Department [place] [address] * HM COLONOSCOPY (02/16/2024) Greta Joseph MD HEALTH MAINTENANCE Final Result from Last 3 Months or Most Recently Relevant to Health Maintenance Insurance [facility]IC[facility] MEDICARE [facility] MEDICARE [facility] Care Teams Senior C Web Developer Relationship Specialty Start Date End Date Winsome Garcia MD PCP - General Family Medicine 11/16/21
[2025-02-19 10:36] LABS: Basophils Percent Auto 4.8 % (0.2-1.2); Hematocrit 40.6 % (42.0-52.0); Hemoglobin 13.8 g/dL (14.0-18.0); Lymphocytes Absolute Auto 0.28 K/mm3 (0.9-3.2); Lymphocytes Percent Auto 33.7 % (18.3-44.2); Mean Corpuscular Hemoglobin 30.9 pg (26-34); Mean Platelet Volume 9.1 fl (7.4-10.4); Monocytes Absolute Auto 0.1 K/mm3 (0.1-0.6); Monocytes Percent Auto 9.6 % (2.6-8.5); Neutrophils Absolute Auto 0.3 K/mm3 (1.3-6.7); Neutrophils Percent Auto 39.9 % (45.5-73.1); Platelet Count Result 128 k/mm3 (150-375); Red Blood Count 4.46 M/mm3 (4.6-6.20); Red Cell Distribution Width 12.7 % (11.5-14.5)
[2025-02-19] MEDS: SODIUM CHLORIDE 0.9% IV 1,000 ML 999 ML IV CONT ×3 (10:45→12:19)
[2025-02-19 10:46] LABS: INR 1.2; Partial Thromboplastin Time 30.9 Seconds (22.3-36.8)
[2025-02-19 10:47] LABS: Alanine Aminotransferase 32 U/L (6-50); Albumin Level 3.8 g/dL (3.5-5.1); Alkaline Phosphatase 54 U/L (38-126); Anion Gap 9 mmol/L (4-12); Aspartate Amino Transferase 33 U/L (17-59); Bilirubin,Total 1.2 mg/dL (0.2-1.3); Blood Urea Nitrogen 18 mg/dL (9-20); Calcium 7.9 mg/dL (8.4-10.2); Carbon Dioxide 24 mmol/L (22-30); Chloride 98 mmol/L (98-107); Estimated CRCL calculation 48 ml/min; Estimated Glomerular Filt Rate 50; Glucose 163 mg/dL (65-110); Magnesium 2.1 mg/dL (1.6-2.3); Potassium 4.2 mmol/L (3.4-5.0); Sodium 131 mmol/L (137-145)
[2025-02-19 11:01] LABS: Troponin I 0.036 ng/mL (0.000-0.034)
[2025-02-19 11:03] LABS: White Blood Count 0.8 K/mm3 (4.5-10.0)
[2025-02-19 11:04] LABS: Atypical Lymphocytes Present; Platelet Estimate Slightly Decreased (Adequate); Schistocytes None Seen
[2025-02-19 11:05] LABS: Lactic Acid Reflex 2.8 mmol/L (0.7-2.0)
--- NOTE | 2025-02-19 11:44 | ED_ITS ---
HPI - General Adult General Chief complaint: Weakness Stated complaint: WEAKNESS Time Seen by Provider: 02/19/25 09:15 History of Present Illness HPI narrative: Patient is a 6-year-old gentleman who presents emergency department with chief complaint of generalized weakness. Patient reports that he is undergoing chemo for prostate cancer and reports his last dose was on the . The patient is followed by Dr. Wilson reports that he has been feeling weak little knot in the usual self and reports that he was having area of redness in his left leg. Related Data Home Medications ?Medication ?Instructions ?Recorded ?Confirmed ?Last Taken ?Type Metamucil 1 tab-cap PO DIRECTED 02/02/24 12/28/24 Unknown History flaxseed 1 tab-cap PO DIRECTED 02/02/24 12/28/24 Unknown History multivitamin 1 tablet PO DAILY 02/02/24 12/28/24 Unknown History darolutamide 300 mg tablet (Nubeqa) 600 mg PO BID 12/14/24 12/28/24 Unknown History Allergies Allergy/AdvReac Type Severity Reaction Status Date / Time No Known Allergies Allergy Verified 02/19/25 09:18 Review of Systems 2 Review of Systems: A 10 system review of systems was completed on the patient and is negative except for what is stated in the HPI. Nursing and ancillary documentation was reviewed. COUNTS INCLUDE 234 BEDS AT THE [facility] Past Medical History Medical History Cancer, metastatic to bone Fracture of right ulnar styloid Fracture of right distal radius Subdural hematoma Oct 2011 Retinal tear (~06/26/19) Right eye Surgical History Surgical History S/P LASIK surgery History of orchiectomy (~1975) H/O colonoscopy (~09/2013) Family History Family History Sibling Carcinoma of colon Other Family history of elevated blood lipids No family history of cardiovascular disease Social History Social History Smoking status: Never smoker Alcohol intake: current Alcohol use details: WINE Living arrangements: with family Occupation/Education: retired Gender identity (if verbalized by the patient): Male Spiritual care concerns: No Exam 2 Narrative: GENERAL: Well-appearing, well-nourished, and in no acute distress. HEAD: Normocephalic, atraumatic. EYES: PERRLA and EOMI. ENT: Nares clear, no rhinorrhea or epistaxis. Mucous membranes moist. NECK: Supple. CHEST: Clear to auscultation. No respiratory distress. HEART: Regular rate and rhythm. No murmur heard. Normal peripheral pulses. ABDOMEN: Soft, nontender, nondistended, normal active bowel sounds. EXTREMITIES: Normal range of motion. No edema. SKIN: Warm, dry, no rash. There is an area of cellulitis to the left ankle NEURO: No focal deficits. Alert and oriented x3. PSYCH: Normal mood and affect. Course Vital Signs Vital signs: Vital Signs Temperature 37.2 C 02/19/25 09:05 Pulse Rate 120 H 02/19/25 09:05 Respiratory Rate 18 02/19/25 09:05 Blood Pressure 142/68 H 02/19/25 09:05 Pulse Oximetry 100 02/19/25 09:05 Oxygen Delivery Room Air 02/19/25 09:05 Temperature 37.2 C 02/19/25 09:05 Pulse Rate 110 H 02/19/25 10:51 Respiratory Rate 21 H 02/19/25 10:51 Blood Pressure 150/75 H 02/19/25 10:51 Pulse Oximetry 97 02/19/25 10:51 Oxygen Delivery Room Air 02/19/25 09:05 Medical Decision Making [facility] Narrative Medical decision making narrative: Differential diagnosis includes intracranial hemorrhage, neutropenia, cellulitis, DVT, Venous duplex showed no evidence of DVT. Patient had intact dorsalis pedis pulses in the left lower extremity Laboratory studies showed a white count 0.8 with an ANC of 0.3 Blood cultures were obtained and patient was started on cefepime and vanc. Case was discussed with Dr. Wilson the patient we admitted to the hospitalist Vital Signs Vital Signs: Vital Signs Temperature 37.2 C 02/19/25 09:05 Pulse Rate 120 H 02/19/25 09:05 Respiratory Rate 18 02/19/25 09:05 Blood Pressure 142/68 H 02/19/25 09:05 Pulse Oximetry 100 02/19/25 09:05 Oxygen Delivery Room Air 02/19/25 09:05 Temperature 37.2 C 02/19/25 09:05 Pulse Rate 110 H 02/19/25 10:51 Respiratory Rate 21 H 02/19/25 10:51 Blood Pressure 150/75 H 02/19/25 10:51 Pulse Oximetry 97 02/19/25 10:51 Oxygen Delivery Room Air 02/19/25 09:05 Lab Data 02/19/25 10:27 02/19/25 10:27 Labs: Lab Results 02/19/25 Range/Units 10:27 WBC 0.8 L* (4.5-10.0) K/mm3 RBC 4.46 L (4.6-6.20) M/mm3 Hgb 13.8 L (14.0-18.0) g/dL Hct 40.6 L (42.0-52.0) % MCV 91.0 (80-100) fl MCH 30.9 (26-34) pg MCHC 34.0 (32-36) g/dl RDW 12.7 (11.5-14.5) % Plt Count 128 L (150-375) k/mm3 MPV 9.1 (7.4-10.4) fl Immature Gran % (Auto) 12.0 H (0-0.5) % Neut % (Auto) 39.9 L (45.5-73.1) % Lymph % (Auto) 33.7 (18.3-44.2) % Juab % (Auto) 9.6 H (2.6-8.5) % Eos % (Auto) 0.0 (0-4.4) % Baso % (Auto) 4.8 H (0.2-1.2) % Lymph # (Auto) 0.28 L (0.9-3.2) K/mm3 [place] # (Auto) 0.1 (0.1-0.6) K/mm3 Eos # (Auto) 0.0 (0-0.3) K/mm3 Baso # (Auto) 0.0 (0.0-0.1) K/mm3 Abs Immat Gran (auto) 0.10 H (0.00-0.031) K/mm3 Absolute Neuts (auto) 0.3 L (1.3-6.7) K/mm3 Absolute Nucleated RBC 0.000 (0.0-0.012) K/mm3 Band Neutrophils % Not Reportable Nucleated RBC % 0.0 (0.0-0.2) % Atypical Lymphocytes Present Platelet Estimate Slightly decreased (Adequate) Schistocytes None seen PT 16.0 H (11.1-14.7) Seconds INR 1.2 APTT 30.9 (22.3-36.8) Seconds Sodium 131 L (137-145) mmol/L Potassium 4.2 (3.4-5.0) mmol/L Chloride 98 (98-107) mmol/L Carbon Dioxide 24 (22-30) mmol/L Anion Gap 9 (4-12) mmol/L BUN 18 (9-20) mg/dL Creatinine 1.40 H (0.7-1.3) mg/dL Estim Creat Clear Calc 48 ml/min Estimated GFR 50 L (59 - ) Glucose 163 H (65-110) mg/dL Lactic Acid 2.8 H (0.7-2.0) mmol/L Calcium 7.9 L (8.4-10.2) mg/dL Magnesium 2.1 (1.6-2.3) mg/dL Total Bilirubin 1.2 (0.2-1.3) mg/dL AST 33 (17-59) U/L ALT 32 (6-50) U/L Alkaline Phosphatase 54 (38-126) U/L Troponin I 0.036 H* (0.000-0.034) ng/mL Total Protein 7.0 (6.3-8.2) g/dL Albumin 3.8 (3.5-5.1) g/dL Critical Care Time Critical Care Time Critical Care Time: Yes Total Critical Care Time: 30 Discharge Plan Discharge Clinical Impression: Cellulitis of left leg, Neutropenia, Acute kidney injury Patient Disposition: Still a Patient Condition: Stable Patient Language: Kyrgyz Prescriptions: No Action Nubeqa 300 mg tablet 600 mg PO BID Patient Comments: .. simvastatin 20 mg tablet See Rx Instructions .ROUTE .COMPLEX Qty: 90 1RF Dose Instruction: TAKE 1 TABLET BY MOUTH EVERY DAY Rx Instructions: TAKE 1 TABLET BY MOUTH EVERY DAY multivitamin Tablet 1 tablet PO DAILY Metamucil 1 tab-cap PO DIRECTED flaxseed 1 tab-cap PO DIRECTED Follow-up/Referrals: UNKNOWN,DOCTOR [Primary Care Provider] - Time of Disposition: 11:47
[2025-02-19] MEDS: FILGRASTIM-SNDZ 480 MCG/0.8 ML SYRINGE SUB-Q (12:19)
[2025-02-19 12:32] LABS: Reflex Lactic Acid Yes or No Add Lactic
--- NOTE | 2025-02-19 12:40 | ECG_ITS ---
Test Date: 2025-02-19 12:44:35 Measurements Intervals [place] Rate: 98 P: 75 SC: 162 QRS: 15 QRSD: 80 T: 21 QT: 296 QTc: 378 Interpretive Statements SINUS RHYTHM WITH SINUS ARRHYTHMIA NONSPECIFIC ST AND T-WAVE ABNORMALITY Compared to ECG 02/19/2025 09:22:34 Sinus tachycardia no longer present Electronically Signed On 02-19-2025 14:27:26 CDT by Piero Nguyen M.D.
[2025-02-19] MEDS: CEFEPIME 2 GM/NS 50 ML 2 GM/50 ML BAG IVPB (12:46)
[2025-02-19 13:22] LABS: Troponin I 0.048 ng/mL (0.000-0.034)
[2025-02-19 13:30] LABS: Influenza A QL RT-PCR Negative (Negative); Influenza B QL RT-PCR Negative (Negative); RSV RNA, RT-PCR Negative (Negative); SARS-CoV-2 RNA PCR Negative (Negative)
[2025-02-19] MEDS: VANCOMYCIN 1,250 MG/NS 250 ML 1,250 MG/250 ML BAG 166.67 MG IVPB (13:30)
--- NOTE | 2025-02-19 13:54 | P.HP_ITS ---
H&P: HPI History of Present Illness Date/Time: 02/19/25 13:54 Chief Complaint: Weakness Narrative: 69 y/o M with PMH of prostate cancer with mets to the bone (undergoing chemo), subdural hematoma (2011), and right retinal tear (2018) presents here with generalized weakness. The patient presents here from home via EMS on 02/19 for further evaluation of generalized weakness. He reports onset 3 days ago on 02/16. He denies accompanying nausea, vomiting, diarrhea, fever, chills, shortness of breath, abdominal pain, or chest pain. He denies changes in appetite. He has a history significant for prostate cancer with metastasis to the bone. He is undergoing chemotherapy and has had 3 sessions thus far with the most recent on 02/13. He follows with Palma DIAZ for his oncology care. He arrived to the emergency department tachycardic in the 120s and hypertensive. Patient is also reporting left leg redness that started Tuesday evening, 02/16. He reports soreness and some difficulty with ambulation. Initial VS at presentation: 98.9? F, HR 120, R 18, 142/68, and 100% on RA. ED workup showed: WBC 0.8, hemoglobin 13.8, platelet count 128, INR 1.2, sodium 131, creatinine 1.4 and GFR 50 (previously 0.9 and GFR >60 on 02/13/2025), calcium 7.9, initial troponin 0.036. Viral PCR negative. Left ankle XR unremarkable, CXR showed clear lungs and a left-sided MediPort, left foot XR showed severe degenerative changes at the 1st MTP joint, head CT showed no significant abnormality, and venous Doppler of the left lower extremity showed no DVT. Review of Systems Review of Systems: All systems reviewed & are unremarkable except as noted in HPI and below PMFSH Past Medical History Medical History Prostate cancer Mixed hyperlipidemia Cancer, metastatic to bone Fracture of right ulnar styloid Fracture of right distal radius Subdural hematoma Oct 2011, s/p craniotomy/clay holes Retinal tear (~06/26/19) Right eye Surgical History Surgical History S/P LASIK surgery History of orchiectomy (~1975) H/O colonoscopy (~09/2013) Family History Family History Sibling Colon cancer Father Acute myocardial infarction Prostate carcinoma Social History Social History Smoking status: Never smoker Second hand tobacco smoke exposure: Yes Alcohol intake: never Alcohol use details: WINE Substance use: never Substance use type: does not use Do You Feel Safe in your Home?: Yes Lack of Transportation: No Lack of Food: Never True Current Housing: I Have Housing Concerned About Future Housing: No Difficulty Paying Gas/Electric Bills: No Difficulty Paying for Meds: No Currently Unemployed: No Education: Bachelor's Degree Difficulty w/ Childcare or Family Care: No Living arrangements: with family Occupation/Education: retired Gender identity (if verbalized by the patient): Male Spiritual care concerns: No Meds Home Medications and Allergies Home Medications ?Medication ?Instructions ?Recorded ?Confirmed ?Type multivitamin 1 tablet PO DAILY 02/02/24 02/19/25 History darolutamide 300 mg tablet (Nubeqa) 600 mg PO BIDWM 12/14/24 02/19/25 History dexamethasone 4 mg tablet 4 mg PO BID 02/19/25 02/19/25 History flaxseed oil 1,300 mg capsule 2,600 mg PO DAILY 02/19/25 02/19/25 History lidocaine-prilocaine 2.5 %-2.5 % 1 applic topical DAILY PRN 02/19/25 02/19/25 History topical cream port/catheter care ondansetron HCl 8 mg tablet 8 mg PO Q8H PRN nausea and vomiting 02/19/25 02/19/25 History prednisone 5 mg tablet 5 mg PO BIDWM 02/19/25 02/19/25 History psyllium husk 3.4 gram/5.4 gram 1 tbsp PO DAILY 02/19/25 02/19/25 History oral powder (Metamucil) simvastatin 20 mg tablet See Rx Instructions .Route .COMPLEX 02/19/25 02/19/25 History Allergies Allergy/AdvReac Type Severity Reaction Status Date / Time No Known Allergies Allergy Verified 02/19/25 09:18 Vital Signs Vital Signs - 24 hr 02/19/25 09:05 02/19/25 09:15 02/19/25 10:51 Temperature 98.9 F Pulse Rate 120 H 121 H 110 H Respiratory Rate 18 21 H Blood Pressure 142/68 H 150/75 H Pulse Oximetry 100 97 Oxygen Delivery Room Air 02/19/25 11:30 02/19/25 12:30 02/19/25 13:33 Temperature Pulse Rate 108 H 107 H 106 H Respiratory Rate 21 H 16 18 Blood Pressure 155/69 H 166/74 H 175/75 H Pulse Oximetry 98 100 99 Oxygen Delivery Exam Const: General: comfortable and no acute distress Other: , male, nontoxic appearance HENMT: Face/Nose/Sinus: Normal nares present Mouth: Yes moist mucous membra ernestine Eyes: General: appearance normal, both eyes and all related structures Sclera: sclerae normal Pupils: Equal, round and reactive pupils present EOM: EOMs intact bilaterally Resp: Effort & Inspection: normal respiratory effort Auscultation: clear to auscultation bilaterally Cardio: Rate: regular rate Rhythm: regular rhythm Other: S1-S2 present without murmur, rub, ectopy GI: Other: Abdomen soft, nondistended, nontender. Normoactive bowel sounds in all quadrants. Skin: General skin exam: normal color and no rashes or lesions noted Other: Area of purpura to left lateral foot measuring approximately 1 x 3 cm. Mild surrounding erythema that is blanchable. No active drainage. Neuro: Speech: normal speech Motor exam (neuro): 5/5 motor strength present throughout Sensory Exam: normal sensation Other: A&O x4 Extrem: General: normal exam except as noted Other: See skin exam Psych: Mental Status: mental status grossly normal Affect: normal affect Other: Good insight and judgment, pleasant H&P: Results Labs Labs: Short CBC 02/19/25 Range/Units 10:27 WBC 0.8 L* (4.5-10.0) K/mm3 Hgb 13.8 L (14.0-18.0) g/dL Hct 40.6 L (42.0-52.0) % Plt Count 128 L (150-375) k/mm3 BMP 02/19/25 10:27 Sodium 131 L Potassium 4.2 Chloride 98 Carbon Dioxide 24 BUN 18 Creatinine 1.40 H Glucose 163 H Calcium 7.9 L Cardiac Enzymes 02/19/25 02/19/25 Range/Units 10:27 12:45 Troponin I 0.036 H* 0.048 H* D (0.000-0.034) ng/mL Liver Function 02/19/25 Range/Units 10:27 Total Bilirubin 1.2 (0.2-1.3) mg/dL AST 33 (17-59) U/L ALT 32 (6-50) U/L Alkaline Phosphatase 54 (38-126) U/L Albumin 3.8 (3.5-5.1) g/dL Assessment and Plan Assessment and plan (1) Acute kidney injury: Code(s): N17.9 - Acute kidney failure, unspecified Status: Acute Assessment and Plan: - creatinine 1.4 and GFR 50, previously 0.9 and GFR >60 on 02/13/2025 - no previous history of CKD - suspect this is sequela of chemotherapy and resultant poor p.o. intake. Trial IV fluids for the next 24 hours, if no improvement consider further workup in nephrology consultation. IV fluids: 3L bolus -> 125 mL/hour of NS - trend renal function - trend electrolytes, correct as needed (2) Neutropenia: Qualifiers: Neutropenia type: secondary to cancer chemotherapy Qualified Code(s): D70.1 - Agranulocytosis secondary to cancer chemotherapy; T45.1X5A - Adverse effect of antineoplastic and immunosuppressive drugs, initial encounter Code(s): D70.9 - Neutropenia, unspecified Status: Acute Assessment and Plan: - WBC 0.8, hemoglobin 13.8, platelet count 128 - blood cultures obtained on 02/19, follow - prophylactic ABX: Cefepime and Vancomycin - secondary to chemotherapy - monitor (3) Prostate cancer: Code(s): C61 - Malignant neoplasm of prostate Status: Acute Assessment and Plan: - metastatic prostate cancer, currently undergoing chemotherapy with last treatment on 02/13 - patient's oncologist is Palma DIAZ Plan Diet: Heart healthy GI Prophylaxis: Not currently indicated DVT Prophylaxis: SCDs IV fluids: 3L bolus -> 125 mL/hour of NS Lines/Tubes: Peripheral IV Code Status: Full code Quality VTE Prophylaxis VTE prophylaxis: mechanical ordered Hospitalist MIPS Advance Care Plan I have confirmed that the patient's Advanced Care Plan is present, code status is documented, or surrogate decision maker is listed in patient medical record.: Yes Medication Reconciliation I have utilized all available resources to obtain, update and review the patients current medications (includes all prescriptions, OTC, herbals, cannabis, and nutritional supplements).: Yes
[2025-02-19] MEDS: SODIUM CHLORIDE 0.9% IV 1,000 ML 125 ML IV CONT ×2 (14:01→21:11)
[2025-02-19] MEDS: ACETAMINOPHEN 325 MG TABLET 650 MG PO (14:02)
[2025-02-19] MEDS: CALCIUM GLUC 1,000 MG/NS 50 ML 1,000 MG/50 ML BAG 100 MG IVPB (14:15)
[2025-02-19 14:16] LABS: Add Urine Microscopic? YES; Appearance Urine Clear (Clear); Bacteria Urine None Seen /hpf; Bilirubin Urine Negative (Negative); Blood Urine Negative (Negative); Color Urine Yellow (Yellow); Glucose Urine UA Negative (Negative); Ketones Urine Negative (Negative); Leukocyte Esterase Ur Negative LEU/UL (Negative); Nitrate Urine Negative (Negative); Non Pathogenic Casts 0-2; Protein Urine 2+ mg/dL (Negative); RBC Urine 0-2 /hpf (0-2); Specific Grav Ur 1.017 (1.001-1.035); Squamous Epithelial Cell Urine None Seen /hpf (Few); Urobilinogen Urine 0.2 mg/dL (<2.0); WBC Urine 0-5 /hpf (0-3)
[2025-02-19] MEDS: ACETAMINOPHEN 325 MG TABLET PO (16:06)
--- NOTE | 2025-02-19 16:48 | ECG_ITS ---
Test Date: 2025-02-19 16:58:40 Measurements Intervals [place] Rate: 114 P: 54 OH: 153 QRS: 7 QRSD: 108 T: 62 QT: 437 QTc: 603 Interpretive Statements SINUS TACHYCARDIA MODERATE T-WAVE ABNORMALITY Compared to ECG 02/19/2025 12:44:35 NO SIGNIFICANT CHANGES Electronically Signed On 02-20-2025 16:33:04 CDT by Piero Nguyen M.D.
[2025-02-19] MEDS: KETOROLAC 30 MG/ML VIAL (*BKC) IV PUSH (17:33)
[2025-02-19 17:42] LABS: Troponin I 0.111 ng/mL (0.000-0.034)
--- NOTE | 2025-02-19 18:44 | ADMGEN ---
This patient, Valente Lozano, was admitted to IMU Room 209-. Patient/family oriented to hospital policies and general routines including ID bracelet, bed and alarms, visiting hours, pain management, procedures, bathroom and other care routines, personal items, smoking policy, room service/diet, and visiting hours. Information on how to activate the Rapid Response Team has been discussed. Patient/Family are encouraged to report perceived risks to care and to ask questions if they do not understand what they are told or what they should do.
[2025-02-20] VITALS (10 sets, daily range): BP systolic 102–141; BP diastolic 55–70; PULSE 74–104; RESP 16–22; TEMP 36.4–38.7; O2SAT 96–98
[2025-02-20] MEDS: SIMVASTATIN 20 MG TABLET PO ×2 (00:12→20:26)
[2025-02-20] MEDS: CEFEPIME 2 GM/NS 50 ML 2 GM/50 ML BAG IVPB ×2 (00:12→12:31)
[2025-02-20 04:54] LABS: Basophils Percent Auto 3.9 % (0.2-1.2); Hematocrit 38.5 % (42.0-52.0); Hemoglobin 12.4 g/dL (14.0-18.0); Immature Granulocyte Absolute 0.07 K/mm3 (0.00-0.031); Immature Granulocyte Percent A 9.2 % (0-0.5); Immature Platelet Fraction Pct 3.1 % (0.9-11.2); Lymphocytes Percent Auto 52.6 % (18.3-44.2); Mean Corpuscular HGB Conc 32.2 g/dl (32-36); Mean Corpuscular Hemoglobin 30.8 pg (26-34); Mean Corpuscular Volume 95.5 fl (80-100); Mean Platelet Volume 9.3 fl (7.4-10.4); Monocytes Absolute Auto 0.1 K/mm3 (0.1-0.6); Monocytes Percent Auto 14.5 % (2.6-8.5); Neutrophils Absolute Auto 0.2 K/mm3 (1.3-6.7); Neutrophils Percent Auto 19.8 % (45.5-73.1); Platelet Count Result 94 k/mm3 (150-375); Red Blood Count 4.03 M/mm3 (4.6-6.20); Red Cell Distribution Width 12.8 % (11.5-14.5)
[2025-02-20 05:09] LABS: Alanine Aminotransferase 52 U/L (6-50); Albumin Level 3.3 g/dL (3.5-5.1); Alkaline Phosphatase 54 U/L (38-126); Anion Gap 10 mmol/L (4-12); Aspartate Amino Transferase 56 U/L (17-59); Bilirubin,Total 1.1 mg/dL (0.2-1.3); Blood Urea Nitrogen 15 mg/dL (9-20); Calcium 6.9 mg/dL (8.4-10.2); Carbon Dioxide 17 mmol/L (22-30); Chloride 107 mmol/L (98-107); Estimated CRCL calculation 69 ml/min; Estimated Glomerular Filt Rate > 60; Glucose 155 mg/dL (65-110); Magnesium 2.2 mg/dL (1.6-2.3); Phosphorus 2.4 mg/dL (2.5-4.5); Potassium 4.1 mmol/L (3.4-5.0); Sodium 134 mmol/L (137-145)
[2025-02-20 05:16] LABS: White Blood Count 0.8 K/mm3 (4.5-10.0)
[2025-02-20 05:20] LABS: Band Neutrophils Percent 0 % (0-6); Burr Cells 1+; Ovalocytes 1+; Platelet Estimate Slightly Decreased (Adequate); Schistocytes None Seen; Tear Drop Cells 1+
[2025-02-20] MEDS: SODIUM CHLORIDE 0.9% IV 1,000 ML 125 ML IV CONT ×2 (05:41→14:35)
[2025-02-20] MEDS: PSYLLIUM POWDER PACKET 1 PACKET PO (09:33)
[2025-02-20] MEDS: MULTIVITAMINS THERAPEUTIC TAB (*BKC) 1 TABLET PO (09:34)
[2025-02-20] MEDS: predniSONE 5 MG TABLET PO ×2 (09:34→17:06)
[2025-02-20] MEDS: DAROLUTAMIDE 300 MG 600 EACH PO ×2 (09:34→17:07)
--- NOTE | 2025-02-20 10:26 | PHAR ---
Home medication identified. Nubeqa 300mg tablets. Returned to IMU nursing unit
[2025-02-20] MEDS: ACETAMINOPHEN 500 MG TABLET 1000 MG PO (12:31)
[2025-02-20 13:35] LABS: Vancomycin Random < 5.0 ug/mL (10-20)
--- NOTE | 2025-02-20 18:22 | PM.IMPN ---
Progress Note: A&P Assessment and Plan (1) Acute kidney injury: Code(s): N17.9 - Acute kidney failure, unspecified Status: Acute Assessment and Plan: - creatinine 1.4 and GFR 50, previously 0.9 and GFR >60 on 02/13/2025 - no previous history of CKD - suspect this is sequela of chemotherapy and resultant poor p.o. intake. Trial IV fluids for the next 24 hours, if no improvement consider further workup in nephrology consultation. IV fluids: 3L bolus -> 125 mL/hour of NS - trend renal function - trend electrolytes, correct as needed (2) Neutropenia: Qualifiers: Neutropenia type: secondary to cancer chemotherapy Qualified Code(s): D70.1 - Agranulocytosis secondary to cancer chemotherapy; T45.1X5A - Adverse effect of antineoplastic and immunosuppressive drugs, initial encounter Code(s): D70.9 - Neutropenia, unspecified Status: Acute Assessment and Plan: - WBC 0.8, hemoglobin 13.8, platelet count 128 - blood cultures obtained on 02/19, follow - prophylactic ABX: Cefepime and Vancomycin - secondary to chemotherapy - monitor (3) Prostate cancer: Code(s): C61 - Malignant neoplasm of prostate Status: Acute Assessment and Plan: - metastatic prostate cancer, currently undergoing chemotherapy with last treatment on 02/13 - patient's oncologist is Palma DIAZ Plan 69 y/o with history of metastatic prostate cancer to bones presented with generalized weakness and is found to leukopenia, patient stats receiving chemo therapy for his oncologist Dr. Waldrop, patient received chemo on 02/13, patient is seen by Dr Waldrop today and started the patient on Neopogen, will monitor patient white counts check on ANC. will have PT/OT work with patient as tolerated. Diet: Heart healthy GI Prophylaxis: Not currently indicated DVT Prophylaxis: SCDs IV fluids: 3L bolus -> 125 mL/hour of NS Lines/Tubes: Peripheral IV Code Status: Full code Subjective Date/time seen: 02/20/25 18:22 Interval history: Weakness H&P-Narrative: 69 y/o M with PMH of prostate cancer with mets to the bone (undergoing chemo), subdural hematoma (2011), and right retinal tear (2018) presents here with generalized weakness. The patient presents here from home via EMS on 02/19 for further evaluation of generalized weakness. He reports onset 3 days ago on 02/16. He denies accompanying nausea, vomiting, diarrhea, fever, chills, shortness of breath, abdominal pain, or chest pain. He denies changes in appetite. He has a history significant for prostate cancer with metastasis to the bone. He is undergoing chemotherapy and has had 3 sessions thus far with the most recent on 02/13. He follows with Palma DIAZ for his oncology care. He arrived to the emergency department tachycardic in the 120s and hypertensive. Patient is also reporting left leg redness that started Tuesday evening, 02/16. He reports soreness and some difficulty with ambulation. Initial VS at presentation: 98.9? F, HR 120, R 18, 142/68, and 100% on RA. ED workup showed: WBC 0.8, hemoglobin 13.8, platelet count 128, INR 1.2, sodium 131, creatinine 1.4 and GFR 50 (previously 0.9 and GFR >60 on 02/13/2025), calcium 7.9, initial troponin 0.036. Viral PCR negative. Left ankle XR unremarkable, CXR showed clear lungs and a left-sided MediPort, left foot XR showed severe degenerative changes at the 1st MTP joint, head CT showed no significant abnormality, and venous Doppler of the left lower extremity showed no DVT. Review of Systems Review of Systems: All systems reviewed & are unremarkable except as noted in HPI and below Objective Data Vital Signs Vital Signs: Vital Signs - 24 hr 02/19/25 18:23 02/19/25 19:00 02/19/25 20:00 Temperature 38.3 C H 37.6 C 36.5 C Pulse Rate 100 98 85 Respiratory Rate 20 20 16 Blood Pressure 110/51 L 99/52 L Pulse Oximetry 100 97 97 Oxygen Delivery Fraction of Inspired Oxygen 02/19/25 20:00 02/19/25 20:00 02/19/25 21:24 Temperature Pulse Rate 91 78 Respiratory Rate 20 Blood Pressure Pulse Oximetry 98 Oxygen Delivery Room Air Room Air Fraction of Inspired Oxygen 21 02/19/25 22:00 02/19/25 23:53 02/20/25 00:00 Temperature Pulse Rate 83 74 Respiratory Rate Blood Pressure Pulse Oximetry Oxygen Delivery Room Air Fraction of Inspired Oxygen 02/20/25 00:00 02/20/25 02:00 02/20/25 03:12 Temperature 36.4 C L Pulse Rate 81 77 Respiratory Rate 16 Blood Pressure 102/56 L Pulse Oximetry 98 Oxygen Delivery Room Air Fraction of Inspired Oxygen 02/20/25 04:00 02/20/25 04:00 02/20/25 06:00 Temperature 36.4 C Pulse Rate 94 75 96 Respiratory Rate 16 Blood Pressure 136/70 Pulse Oximetry 98 Oxygen Delivery Fraction of Inspired Oxygen 02/20/25 08:00 02/20/25 08:00 02/20/25 08:00 Temperature 38.1 C H Pulse Rate 104 H 98 Respiratory Rate 18 Blood Pressure 141/64 H Pulse Oximetry 96 Oxygen Delivery Room Air Fraction of Inspired Oxygen 02/20/25 10:00 02/20/25 12:00 02/20/25 16:00 Temperature 38.7 C H 36.9 C Pulse Rate 99 99 92 Respiratory Rate 22 H 18 Blood Pressure 124/60 118/59 L Pulse Oximetry 97 97 Oxygen Delivery Fraction of Inspired Oxygen Intake/Output Intake/Output: Intake & Output 02/17/25 02/18/25 02/19/25 02/20/25 23:59 23:59 23:59 23:59 Intake Total 4245.8 4130 Output Total 400 1650 Balance 3845.8 2480 Meds/Results Medications: Active Medications Generic Name Dose Route Start Last Admin Trade Name Freq PRN Reason Stop Dose Admin Acetaminophen 1,000 mg 02/19/25 20:00 02/20/25 12:31 Acetaminophen 500 Mg Tablet PO 1,000 mg Q6H PRN Administration Mild Pain (1-3) or Fever Cefepime HCl 2 gm in 50 mls @ 100 mls/hr 02/20/25 00:00 02/20/25 12:31 Maxipime 2 Gm/Ns 50 Ml IVPB 100 mls/hr Q12H GODWIN Administration Sodium Chloride 1,000 mls @ 125 mls/hr 02/19/25 11:45 02/20/25 14:35 Normal Saline Iv IV CONT 125 mls/hr .Q8H GODWIN Administration Lidocaine/Prilocaine 1 each 02/19/25 22:02 Lidocaine/Prilocaine Cream 2.5-2.5% Tube TOPICAL DAILY PRN port/catheter care Multivitamins Therapeutic 1 tablet 02/20/25 09:00 02/20/25 09:34 Multivitamins Therapeutic Tab (*Bkc) PO 1 tablet DAILY GODWIN Administration Darolutamide [Nubeqa 600 mg 02/20/25 08:00 02/20/25 17:07 ] 300 Mg Tablet * PO 03/22/25 07:59 600 mg Home Supply* BIDWM GODWIN Administration Ondansetron HCl 4 mg 02/19/25 11:41 Ondansetron Inj 4 Mg/2 Ml Vial IV PUSH Q4H PRN Nausea Prednisone 5 mg 02/20/25 08:00 02/20/25 17:06 Prednisone 5 Mg Tablet PO 5 mg BIDWM GODWIN Administration Psyllium Hydrophilic Mucilloid 1 packet 02/20/25 09:00 02/20/25 09:33 Psyllium Powder Packet PO 1 packet DAILY GODWIN Administration Simvastatin 20 mg 02/19/25 22:05 02/20/25 00:12 Simvastatin 20 Mg Tablet PO 20 mg HS GODWIN Administration Vancomycin HCl 1 each 02/19/25 12:15 Vancomycin For Acute Kidney Injury IVPB PRN PRN Vancomycin Protocol Radiology Results: ITS Impressions Ankle X-Ray 02/19/25 09:57 Impression: Unremarkable left ankle. Chest X-Ray 02/19/25 09:58 Impression: Clear lungs. Left-sided Mediport. Foot X-Ray 02/19/25 09:58 Impression: Severe degenerative change of the first MTP joint. Head CT 02/19/25 10:14 Impression: No significant abnormality seen. Venous Doppler Study 02/19/25 11:09 IMPRESSION: 1. No deep venous thrombosis in the left lower limb. Labs Labs: Laboratory Results - last 24 hr 02/20/25 02/20/25 04:17 12:56 WBC 0.8 L* RBC 4.03 L Hgb 12.4 L Hct 38.5 L MCV 95.5 MCH 30.8 MCHC 32.2 RDW 12.8 Plt Count 94 L MPV 9.3 Immature Gran % (Auto) 9.2 H Neut % (Auto) 19.8 L Lymph % (Auto) 52.6 H [place]ountain % (Auto) 14.5 H Eos % (Auto) 0.0 Baso % (Auto) 3.9 H Lymph # (Auto) 0.40 L [place] # (Auto) 0.1 Eos # (Auto) 0.0 Baso # (Auto) 0.0 Abs Immat Gran (auto) 0.07 H Absolute Neuts (auto) 0.2 L Absolute Nucleated RBC 0.000 Band Neutrophils % 0 Nucleated RBC % 0.0 Platelet Estimate Slightly decreased % Immature Plt Fraction 3.1 Tear Drop Cells 1+ Ovalocytes 1+ [place] Cells 1+ Schistocytes None seen Sodium 134 L Potassium 4.1 Chloride 107 Carbon Dioxide 17 L Anion Gap 10 BUN 15 Creatinine 0.97 Estim Creat Clear Calc 69 Estimated GFR > 60 Glucose 155 H Calcium 6.9 L Phosphorus 2.4 L Magnesium 2.2 Total Bilirubin 1.1 AST 56 ALT 52 H Alkaline Phosphatase 54 Total Protein 6.0 L Albumin 3.3 L Random Vancomycin < 5.0 L Quality VTE Prophylaxis VTE prophylaxis: mechanical ordered
--- NOTE | 2025-02-20 18:28 | WPDONCCN ---
Assessment and Plan Assessment and plan (1) Prostate cancer: Code(s): C61 - Malignant neoplasm of prostate Status: Acute Assessment and Plan: Patient with metastatic prostate cancer with bone involvement currently on chemotherapy along with Lupron and new back up. He received cycle 3. Of chemotherapy with Taxotere on February 13. Patient has good response to the treatment with improvement in the PSA. He will continue treatment with Taxotere as an outpatient with possible dose reduction. (2) Neutropenia: Qualifiers: Neutropenia type: secondary to cancer chemotherapy Qualified Code(s): D70.1 - Agranulocytosis secondary to cancer chemotherapy; T45.1X5A - Adverse effect of antineoplastic and immunosuppressive drugs, initial encounter Code(s): D70.9 - Neutropenia, unspecified Status: Acute Assessment and Plan: Chemotherapy-induced neutropenia. I will continue Neupogen 480 mcg subQ daily until ANC is more than 500. He should be able to go home after improvement in the ANC. Left lower extremity swelling and cellulitis noted. There was no evidence of DVT. Continue antibiotic vancomycin and cefepime for cellulitis and prophylaxis. Blood culture finding noted. HPI Data of Consult Date/Time: 02/20/25 18:28 Requesting Physician: Dario Ovalle MD Primary Care Provider: Winsome GarciaMD Consult Narrative Narrative: Valente Lozano is a 69 year old male with metastatic prostate cancer with bone involvement diagnosed initially as early stage process cancer in 2018 and then subsequently developed rising PSA in 2022. He received radiation therapy treatment and then was started on May 01. Patient recently started chemotherapy with Taxotere on January 12, 2025. He received chemotherapy cycle 3. On February 13. He is also on Eligard every 6 months basis along with nubeqa. He came into the hospital with generalized weakness. He was also complaining of left lower extremity redness and soreness without any injury and trauma history. Doppler studies showed no evidence of DVT in the left lower limb. Labs showed WBC count of 0.8 with ANC of 300. He denies any other new complaints. Review of Systems Review of Systems: Twelve point review of system was reviewed [facility] Past Medical History Medical History Prostate cancer Mixed hyperlipidemia Cancer, metastatic to bone Fracture of right ulnar styloid Fracture of right distal radius Subdural hematoma Oct 2011, s/p craniotomy/clay holes Retinal tear (~06/26/19) Right eye Surgical History Surgical History S/P LASIK surgery History of orchiectomy (~1975) H/O colonoscopy (~09/2013) Family History Family History Sibling Colon cancer Father Acute myocardial infarction Prostate carcinoma Social History Social History Smoking status: Never smoker Second hand tobacco smoke exposure: Yes Alcohol intake: never Alcohol use details: WINE Substance use: never Substance use type: does not use Do You Feel Safe in your Home?: Yes Lack of Transportation: No Lack of Food: Never True Current Housing: I Have Housing Concerned About Future Housing: No Difficulty Paying Gas/Electric Bills: No Difficulty Paying for Meds: No Currently Unemployed: No Education: Bachelor's Degree Difficulty w/ Childcare or Family Care: No Living arrangements: with family Occupation/Education: retired Gender identity (if verbalized by the patient): Male Spiritual care concerns: No Meds Home Medications and Allergies Home Medications ?Medication ?Instructions ?Recorded ?Confirmed ?Type multivitamin 1 tablet PO DAILY 02/02/24 02/19/25 History darolutamide 300 mg tablet (Nubeqa) 600 mg PO BIDWM 12/14/24 02/19/25 History dexamethasone 4 mg tablet 4 mg PO BID 02/19/25 02/19/25 History flaxseed oil 1,300 mg capsule 2,600 mg PO DAILY 02/19/25 02/19/25 History lidocaine-prilocaine 2.5 %-2.5 % 1 applic topical DAILY PRN 02/19/25 02/19/25 History topical cream port/catheter care ondansetron HCl 8 mg tablet 8 mg PO Q8H PRN nausea and vomiting 02/19/25 02/19/25 History prednisone 5 mg tablet 5 mg PO BIDWM 02/19/25 02/19/25 History psyllium husk 3.4 gram/5.4 gram 1 tbsp PO DAILY 02/19/25 02/19/25 History oral powder (Metamucil) simvastatin 20 mg tablet See Rx Instructions .Route .COMPLEX 02/19/25 02/19/25 History Allergies Allergy/AdvReac Type Severity Reaction Status Date / Time No Known Allergies Allergy Verified 02/19/25 09:18 Vital Signs Vital Signs - 24 hr 02/19/25 19:00 02/19/25 20:00 02/19/25 20:00 Temperature 37.6 C 36.5 C Pulse Rate 98 85 Respiratory Rate 20 16 Blood Pressure 110/51 L 99/52 L Pulse Oximetry 97 97 Oxygen Delivery Room Air Fraction of Inspired Oxygen 02/19/25 20:00 02/19/25 21:24 02/19/25 22:00 Temperature Pulse Rate 91 78 83 Respiratory Rate 20 Blood Pressure Pulse Oximetry 98 Oxygen Delivery Room Air Fraction of Inspired Oxygen 21 02/19/25 23:53 02/20/25 00:00 02/20/25 00:00 Temperature 36.4 C L Pulse Rate 74 81 Respiratory Rate 16 Blood Pressure 102/56 L Pulse Oximetry 98 Oxygen Delivery Room Air Fraction of Inspired Oxygen 02/20/25 02:00 02/20/25 03:12 02/20/25 04:00 Temperature Pulse Rate 77 94 Respiratory Rate Blood Pressure Pulse Oximetry Oxygen Delivery Room Air Fraction of Inspired Oxygen 02/20/25 04:00 02/20/25 06:00 02/20/25 08:00 Temperature 36.4 C 38.1 C H Pulse Rate 75 96 104 H Respiratory Rate 16 18 Blood Pressure 136/70 141/64 H Pulse Oximetry 98 96 Oxygen Delivery Fraction of Inspired Oxygen 02/20/25 08:00 02/20/25 08:00 02/20/25 10:00 Temperature Pulse Rate 98 99 Respiratory Rate Blood Pressure Pulse Oximetry Oxygen Delivery Room Air Fraction of Inspired Oxygen 02/20/25 12:00 02/20/25 16:00 Temperature 38.7 C H 36.9 C Pulse Rate 99 92 Respiratory Rate 22 H 18 Blood Pressure 124/60 118/59 L Pulse Oximetry 97 97 Oxygen Delivery Fraction of Inspired Oxygen Exam Narrative: Lungs are clear to auscultation bilaterally Cardiovascular regular rate rhythm no murmurs Abdomen soft nontender nondistended Left lower extremity edema especially at the ankle noted with erythema and possible cellulitis Results Labs 02/20/25 04:17 02/20/25 04:17 Labs: Short CBC 02/20/25 Range/Units 04:17 WBC 0.8 L* (4.5-10.0) K/mm3 Hgb 12.4 L (14.0-18.0) g/dL Hct 38.5 L (42.0-52.0) % Plt Count 94 L (150-375) k/mm3 BMP 02/20/25 04:17 Sodium 134 L Potassium 4.1 Chloride 107 Carbon Dioxide 17 L BUN 15 Creatinine 0.97 Glucose 155 H Calcium 6.9 L Liver Function 02/20/25 Range/Units 04:17 Total Bilirubin 1.1 (0.2-1.3) mg/dL AST 56 (17-59) U/L ALT 52 H (6-50) U/L Alkaline Phosphatase 54 (38-126) U/L Albumin 3.3 L (3.5-5.1) g/dL
[2025-02-20] MEDS: VANCOMYCIN 750 MG/NS 250 ML 750 MG/250 ML BAG 250 MG IVPB (19:10)
[2025-02-21] VITALS (8 sets, daily range): BP systolic 109–158; BP diastolic 57–67; PULSE 82–90; RESP 16–18; TEMP 36.1–38.1; O2SAT 96–100
[2025-02-21] MEDS: CEFEPIME 2 GM/NS 50 ML 2 GM/50 ML BAG IVPB ×2 (00:45→11:25)
[2025-02-21] MEDS: ACETAMINOPHEN 500 MG TABLET 1000 MG PO (04:49)
[2025-02-21 07:28] LABS: Estimated CRCL calculation 97 ml/min; Estimated Glomerular Filt Rate > 60
[2025-02-21 07:29] LABS: Hematocrit 29.3 % (42.0-52.0); Hemoglobin 10.1 g/dL (14.0-18.0); Immature Platelet Fraction Pct 4.9 % (0.9-11.2); Lymphocytes Absolute Auto 0.25 K/mm3 (0.9-3.2); Lymphocytes Percent Auto 36.8 % (18.3-44.2); Mean Corpuscular HGB Conc 34.5 g/dl (32-36); Mean Corpuscular Hemoglobin 30.8 pg (26-34); Mean Corpuscular Volume 89.3 fl (80-100); Mean Platelet Volume 10.5 fl (7.4-10.4); Monocytes Absolute Auto 0.2 K/mm3 (0.1-0.6); Monocytes Percent Auto 23.5 % (2.6-8.5); Neutrophils Percent Auto 39.7 % (45.5-73.1); Platelet Count Result 91 k/mm3 (150-375); Red Blood Count 3.28 M/mm3 (4.6-6.20); Red Cell Distribution Width 12.9 % (11.5-14.5)
[2025-02-21 07:40] LABS: Magnesium 2.2 mg/dL (1.6-2.3)
[2025-02-21 07:42] LABS: Neutrophils Absolute Auto 0.3 K/mm3 (1.3-6.7); White Blood Count 0.7 K/mm3 (4.5-10.0)
[2025-02-21 07:53] LABS: Platelet Estimate Slightly Decreased (Adequate)
[2025-02-21 07:54] LABS: Atypical Lymphocytes Present; Crenated RBC 1+
[2025-02-21 07:55] LABS: Schistocytes None Seen; Tear Drop Cells 1+
[2025-02-21 07:56] LABS: Ovalocytes 1+
[2025-02-21] MEDS: predniSONE 5 MG TABLET PO ×2 (09:06→16:46)
[2025-02-21] MEDS: DAROLUTAMIDE 300 MG 600 EACH PO ×2 (09:06→16:47)
[2025-02-21] MEDS: MULTIVITAMINS THERAPEUTIC TAB (*BKC) 1 TABLET PO (09:06)
[2025-02-21] MEDS: FILGRASTIM-SNDZ 480 MCG/0.8 ML SYRINGE SUB-Q (09:07)
[2025-02-21 13:06] LABS: Vancomycin Random < 5.0 ug/mL (10-20)
[2025-02-21] MEDS: VANCOMYCIN 1,500 MG/NS 500 ML 1,500 MG/500 ML BAG 250 MG IVPB (14:10)
[2025-02-21] MEDS: PSYLLIUM POWDER PACKET 1 PACKET PO (14:14)
--- NOTE | 2025-02-21 14:15 | P.PNIM_ITS ---
Progress Note: A&P Assessment and Plan (1) Acute kidney injury: Code(s): N17.9 - Acute kidney failure, unspecified Status: Acute Assessment and Plan: - creatinine 1.4 and GFR 50, previously 0.9 and GFR >60 on 02/13/2025 - no previous history of CKD - suspect this is sequela of chemotherapy and resultant poor p.o. intake. Trial IV fluids for the next 24 hours, if no improvement consider further workup in n ephrology consultation. IV fluids: 3L bolus -> 125 mL/hour of NS - trend renal function - trend electrolytes, correct as needed (2) Neutropenia: Qualifiers: Neutropenia type: secondary to cancer chemotherapy Qualified Code(s): D70.1 - Agranulocytosis secondary to cancer chemotherapy; T45.1X5A - Adverse effect of antineoplastic and immunosuppressive drugs, initial encounter Code(s): D70.9 - Neutropenia, unspecified Status: Acute Assessment and Plan: - WBC 0.8, hemoglobin 13.8, platelet count 128 - blood cultures obtained on 02/19, follow - prophylactic ABX: Cefepime and Vancomycin - secondary to chemotherapy - monitor (3) Prostate cancer: Code(s): C61 - Malignant neoplasm of prostate Status: Acute Assessment and Plan: - metastatic prostate cancer, currently undergoing chemotherapy with last treatment on 02/13 - patient's oncologist is Palma DIAZ Plan 69 y/o with history of metastatic prostate cancer to bones presented with generalized weakness and is found to leukopenia, patient stats receiving chemo therapy for his oncologist Dr. Waldrop, patient received chemo on 02/13, patient is seen by Dr Waldrop on 02/20 started the patient on Neopogen 480mcg daily, , will monitor patient white counts check on ANC. once ANC is above 500 will discharge the patient, today patient stats feels better, will monitor, will have PT/OT work with patient as tolerated. Diet: Heart healthy GI Prophylaxis: Not currently indicated DVT Prophylaxis: SCDs IV fluids: 3L bolus -> 125 mL/hour of NS Lines/Tubes: Peripheral IV Code Status: Full code Subjective Date/time seen: 02/21/25 14:15 Interval history: Weakness H&P-Narrative: 69 y/o M with PMH of prostate cancer with mets to the bone (undergoing chemo), subdural hematoma (2011), and right retinal tear (2019) presents here with generalized weakness. The patient presents here from home via EMS on 02/19 for further evaluation of generalized weakness. He reports onset 3 days ago on 02/16. He denies accompanying nausea, vomiting, diarrhea, fever, chills, shortness of breath, abdominal pain, or chest pain. He denies changes in appetite. He has a history significant for prostate cancer with metastasis to the bone. He is undergoing chemotherapy and has had 3 sessions thus far with the most recent on 02/13. He follows with Palma DIAZ for his oncology care. He arrived to the emergency department tachycardic in the 120s and hypertensive. Patient is also reporting left leg redness that started Tuesday evening, 02/16. He reports soreness and some difficulty with ambulation. Initial VS at presentation: 98.9? F, HR 120, R 18, 142/68, and 100% on RA. ED workup showed: WBC 0.8, hemoglobin 13.8, platelet count 128, INR 1.2, sodium 131, creatinine 1.4 and GFR 50 (previously 0.9 and GFR >60 on 02/13/2025), calcium 7.9, initial troponin 0.036. Viral PCR negative. Left ankle XR unremarkable, CXR showed clear lungs and a left-sided MediPort, left foot XR showed severe degenerative changes at the 1st MTP joint, head CT showed no significant abnormality, and venous Doppler of the left lower extremity showed no DVT. 69 y/o with history of metastatic prostate cancer to bones presented with generalized weakness and is found to leukopenia, patient stats receiving chemo therapy for his oncologist Dr. Waldrop, patient received chemo on 02/13, patient is seen by Dr Waldrop on 02/20 started the patient on Neopogen 480mcg daily, , will monitor patient white counts check on ANC. once ANC is above 500 will discharge the patient, today patient stats feels better, will monitor, will have PT/OT work with patient as tolerated. Review of Systems Review of Systems: All systems reviewed & are unremarkable except as noted in HPI and below Objective Data Vital Signs Vital Signs: Vital Signs - 24 hr 02/20/25 16:00 02/20/25 19:47 02/20/25 20:00 Temperature 36.9 C 36.7 C Pulse Rate 92 83 Respiratory Rate 18 17 Blood Pressure 118/59 L 110/55 L Pulse Oximetry 97 97 Oxygen Delivery Room Air 02/20/25 21:58 02/21/25 04:49 02/21/25 05:05 Temperature 36.6 C 37.7 C H 37.7 C H Pulse Rate 80 82 Respiratory Rate 16 16 Blood Pressure 106/61 109/60 Pulse Oximetry 98 100 Oxygen Delivery 02/21/25 05:54 02/21/25 06:41 02/21/25 06:41 Temperature 38.1 C H 37.5 C 37.5 C Pulse Rate Respiratory Rate Blood Pressure Pulse Oximetry Oxygen Delivery 02/21/25 08:00 02/21/25 13:50 Temperature 36.1 C L Pulse Rate 90 Respiratory Rate 18 Blood Pressure 158/67 H Pulse Oximetry 100 100 Oxygen Delivery Room Air Intake/Output Intake/Output: Intake & Output 02/18/25 02/19/25 02/20/25 02/21/25 23:59 23:59 23:59 23:59 Intake Total 4245.8 5100 1120 Output Total 400 1652 Balance 3845.8 3448 1120 Meds/Results Medications: Active Medications Generic Name Dose Route Start Last Admin Trade Name Freq PRN Reason Stop Dose Admin Acetaminophen 1,000 mg 02/19/25 20:00 02/21/25 04:49 Acetaminophen 500 Mg Tablet PO 1,000 mg Q6H PRN Administration Mild Pain (1-3) or Fever Filgrastim-Sndz 480 mcg 02/21/25 09:00 02/21/25 09:07 Filgrastim-Sndz 480 Mcg/0.8 Ml Syringe SUB-Q 480 mcg DAILY GODWIN Administration Cefepime HCl 2 gm in 50 mls @ 100 mls/hr 02/20/25 00:00 02/21/25 11:25 Maxipime 2 Gm/Ns 50 Ml IVPB 100 mls/hr Q12H GODWIN Administration Vancomycin HCl 1,500 mg in 500 mls @ 250 mls/hr 02/21/25 14:00 02/21/25 14:10 Vancomycin 1,500 Mg/Ns 500 Ml IVPB 250 mls/hr Q12H GODWIN Administration Lidocaine/Prilocaine 1 each 02/19/25 22:02 Lidocaine/Prilocaine Cream 2.5-2.5% Tube TOPICAL DAILY PRN port/catheter care Multivitamins Therapeutic 1 tablet 02/20/25 09:00 02/21/25 09:06 Multivitamins Therapeutic Tab (*Bkc) PO 1 tablet DAILY GODWIN Administration Darolutamide [Nubeqa 600 mg 02/20/25 08:00 02/21/25 09:06 ] 300 Mg Tablet * PO 03/22/25 07:59 600 mg Home Supply* BIDWM GODWIN Administration Ondansetron HCl 4 mg 02/19/25 11:41 Ondansetron Inj 4 Mg/2 Ml Vial IV PUSH Q4H PRN Nausea Prednisone 5 mg 02/20/25 08:00 02/21/25 09:06 Prednisone 5 Mg Tablet PO 5 mg BIDWM GODWIN Administration Psyllium Hydrophilic Mucilloid 1 packet 02/20/25 09:00 02/21/25 14:14 Psyllium Powder Packet PO 1 packet DAILY GODWIN Administration Simvastatin 20 mg 02/19/25 22:05 02/20/25 20:26 Simvastatin 20 Mg Tablet PO 20 mg HS GODWIN Administration Radiology Results: ITS Impressions Ankle X-Ray 02/19/25 09:57 Impression: Unremarkable left ankle. Chest X-Ray 02/19/25 09:58 Impression: Clear lungs. Left-sided Mediport. Foot X-Ray 02/19/25 09:58 Impression: Severe degenerative change of the first MTP joint. Head CT 02/19/25 10:14 Impression: No significant abnormality seen. Venous Doppler Study 02/19/25 11:09 IMPRESSION: 1. No deep venous thrombosis in the left lower limb. Labs Labs: Laboratory Results - last 24 hr 02/21/25 02/21/25 07:04 12:04 WBC 0.7 L* RBC 3.28 L Hgb 10.1 L Hct 29.3 L MCV 89.3 D MCH 30.8 MCHC 34.5 RDW 12.9 Plt Count 91 L MPV 10.5 H Immature Gran % (Auto) 0.0 Neut % (Auto) 39.7 L Lymph % (Auto) 36.8 [place] % (Auto) 23.5 H Eos % (Auto) 0.0 Baso % (Auto) 0.0 L Lymph # (Auto) 0.25 L [place] # (Auto) 0.2 Eos # (Auto) 0.0 Baso # (Auto) 0.0 Abs Immat Gran (auto) 0.00 Absolute Neuts (auto) 0.3 L* Absolute Nucleated RBC 0.000 Band Neutrophils % Not Reportable Nucleated RBC % 0.0 Atypical Lymphocytes Present Platelet Estimate Slightly decreased % Immature Plt Fraction 4.9 Tear Drop Cells 1+ Ovalocytes 1+ Crenated Cell 1+ Schistocytes None seen Creatinine 0.67 L Estim Creat Clear Calc 97 Estimated GFR > 60 Magnesium 2.2 Random Vancomycin < 5.0 L Quality VTE Prophylaxis VTE prophylaxis: mechanical ordered
[2025-02-21] MEDS: SIMVASTATIN 20 MG TABLET PO (20:38)
[2025-02-22] MEDS: CEFEPIME 2 GM/NS 50 ML 2 GM/50 ML BAG IVPB (01:01)
[2025-02-22] MEDS: VANCOMYCIN 1,500 MG/NS 500 ML 1,500 MG/500 ML BAG 250 MG IVPB (01:39)
[2025-02-22 06:00] VITALS: BP 109/63; PULSE 74; RESP 16; TEMP 36.2; O2SAT 100
[2025-02-22 06:37] LABS: Basophils Absolute Auto 0.1 K/mm3 (0.0-0.1); Basophils Percent Auto 1.6 % (0.2-1.2); Eosinophils Percent Auto 0.6 % (0-4.4); Hematocrit 31.1 % (42.0-52.0); Hemoglobin 10.8 g/dL (14.0-18.0); Immature Granulocyte Absolute 0.08 K/mm3 (0.00-0.031); Immature Granulocyte Percent A 2.5 % (0-0.5); Lymphocytes Absolute Auto 0.57 K/mm3 (0.9-3.2); Mean Corpuscular HGB Conc 34.7 g/dl (32-36); Mean Corpuscular Hemoglobin 31.2 pg (26-34); Mean Corpuscular Volume 89.9 fl (80-100); Monocytes Absolute Auto 0.4 K/mm3 (0.1-0.6); Neutrophils Absolute Auto 2.1 K/mm3 (1.3-6.7); Neutrophils Percent Auto 65.3 % (45.5-73.1); Nucleated Red Blood Cells Perc 0.6 % (0.0-0.2); Platelet Count Result 104 k/mm3 (150-375); Red Blood Count 3.46 M/mm3 (4.6-6.20); Red Cell Distribution Width 13.4 % (11.5-14.5); White Blood Count 3.2 K/mm3 (4.5-10.0)
[2025-02-22 06:49] LABS: Estimated CRCL calculation 83 ml/min; Estimated Glomerular Filt Rate > 60; Magnesium 2.3 mg/dL (1.6-2.3)
[2025-02-22 06:57] LABS: Anisocytosis 1+; Hypochromasia 1+; Platelet Estimate Decreased (Adequate)
[2025-02-22 06:58] LABS: Burr Cells 1+; Schistocytes None Seen; Tear Drop Cells 1+
[2025-02-22] MEDS: FILGRASTIM-SNDZ 480 MCG/0.8 ML SYRINGE SUB-Q (09:18)
[2025-02-22] MEDS: predniSONE 5 MG TABLET PO ×2 (09:18→17:34)
[2025-02-22] MEDS: MULTIVITAMINS THERAPEUTIC TAB (*BKC) 1 TABLET PO (09:18)
[2025-02-22] MEDS: DAROLUTAMIDE 300 MG 600 EACH PO ×2 (09:19→17:35)
--- NOTE | 2025-02-22 11:07 | P.PNIM_ITS ---
Progress Note: A&P Assessment and Plan (1) Acute kidney injury: Code(s): N17.9 - Acute kidney failure, unspecified Status: Acute Assessment and Plan: - creatinine 1.4 and GFR 50, previously 0.9 and GFR >60 on 02/13/2025 - no previous history of CKD - suspect this is sequela of chemotherapy and resultant poor p.o. intake. Trial IV fluids for the next 24 hours, if no improvement consider further workup in ne phrology consultation. IV fluids: 3L bolus -> 125 mL/hour of NS - trend renal function - trend electrolytes, correct as needed - Improved (2) Neutropenia: Qualifiers: Neutropenia type: secondary to cancer chemotherapy Qualified Code(s): D70.1 - Agranulocytosis secondary to cancer chemotherapy; T45.1X5A - Adverse effect of antineoplastic and immunosuppressive drugs, initial encounter Code(s): D70.9 - Neutropenia, unspecified Status: Acute Assessment and Plan: - WBC 0.8, hemoglobin 13.8, platelet count 128 - blood cultures obtained on 02/19, + for gram+ cocci growth - prophylactic ABX: Cefepime and Vancomycin - secondary to chemotherapy - monitor 02/22 - ANC 2100 on 02/22 - BC drawn on 02/21 still + for gram+ cocci - Repeat BC on 02/23, can likely d/c once cultures are (-) (3) Prostate cancer: Code(s): C61 - Malignant neoplasm of prostate Status: Acute Assessment and Plan: - metastatic prostate cancer, currently undergoing chemotherapy with last treatment on 02/13 - patient's oncologist is Palma DIAZ Plan 69 y/o with history of metastatic prostate cancer to bones presented with generalized weakness and is found to leukopenia, patient stats receiving chemo therapy for his oncologist Dr. Waldrop, patient received chemo on 02/13, patient is seen by Dr Waldrop on 02/20 started the patient on Neopogen 480mcg daily, , will monitor patient white counts check on ANC. once ANC is above 500 will discharge the patient, today patient stats feels better, will monitor, will have PT/OT work with patient as tolerated. Diet: Heart healthy GI Prophylaxis: Not currently indicated DVT Prophylaxis: SCDs IV fluids: 3L bolus -> 125 mL/hour of NS Lines/Tubes: Peripheral IV Code Status: Full code Subjective Date/time seen: 02/22/25 11:07 Interval history: 69 y/o M with PMH of prostate cancer with mets to the bone (undergoing chemo), subdural hematoma (2011), and right retinal tear (2018) presents here with generalized weakness. 02/22/2025 Patient sitting comfortably in bed at time of examination. Denies any chest pain, shortness a bra, nausea/vomiting, or abdominal pain. Started on Nepogen 480mcg daily by Dr. Waldrop 02/20. ANC 2100, however blood cultures still + for gram+ cocci growth. Will need to obtain repeat BC tomorrow in order toconsider discharge. No other concerns or complaints at this time. Review of Systems Review of Systems: All systems reviewed & are unremarkable except as noted in HPI and below Exam Narrative: left lateral foot with dark hematoma. 1x3, slight erythema surrounding that blanches. DP pulses 2+. Const: General: comfortable and no acute distress Other: , male, nontoxic appearance HENMT: Face/Nose/Sinus: Normal nares present Mouth: Yes moist mucous membranes Eyes: General: appearance normal, both eyes and all related structures Sclera: sclerae normal Pupils: Equal, round and reactive pupils present EOM: EOMs intact bilaterally Resp: Effort & Inspection: normal respiratory effort Auscultation: clear to auscultation bilaterally Cardio: Rate: regular rate Rhythm: regular rhythm Other: S1-S2 present without murmur, rub, ectopy GI: Other: Abdomen soft, nondistended, nontender. Normoactive bowel sounds in all quadrants. Skin: General skin exam: normal color and no rashes or lesions noted Other: Area of purpura to left lateral foot measuring approximately 1 x 3 cm. Mild surrounding erythema that is blanchable. No active drainage. Neuro: Cranial nerves: Yes Equal, round and reactive pupils present Speech: normal speech Motor exam (neuro): 5/5 motor strength present throughout Sensory Exam: normal sensation Other: A&O x4 Extrem: General: normal exam except as noted Other: See skin exam Psych: Mental Status: mental status grossly normal Affect: normal affect Other: Good insight and judgment, pleasant Objective Data Vital Signs Vital Signs: Vital Signs - 24 hr 02/21/25 13:50 02/21/25 21:00 02/21/25 21:03 Temperature 97.0 F L 97.4 F L Pulse Rate 90 85 Respiratory Rate 18 16 Blood Pressure 158/67 H 114/57 L Pulse Oximetry 100 96 96 Oxygen Delivery Room Air Fraction of Inspired Oxygen 21 02/22/25 06:00 Temperature 97.2 F L Pulse Rate 74 Respiratory Rate 16 Blood Pressure 109/63 Pulse Oximetry 100 Oxygen Delivery Fraction of Inspired Oxygen Intake/Output Intake/Output: Intake & Output 02/19/25 02/20/25 02/21/25 02/22/25 23:59 23:59 23:59 23:59 Intake Total 4245.8 5100 2460 350 Output Total 400 1652 Balance 3845.8 3448 2460 350 Meds/Results Medications: Active Medications Generic Name Dose Route Start Last Admin Trade Name Freq PRN Reason Stop Dose Admin Acetaminophen 1,000 mg 02/19/25 20:00 02/21/25 04:49 Acetaminophen 500 Mg Tablet PO 1,000 mg Q6H PRN Administration Mild Pain (1-3) or Fever Cefazolin Sodium 2 gm in 50 mls @ 100 mls/hr 02/22/25 11:00 Ancef 2 Gm/D5w 50 Ml IVPB Q8H [facility] Lidocaine/Prilocaine 1 each 02/19/25 22:02 Lidocaine/Prilocaine Cream 2.5-2.5% Tube TOPICAL DAILY PRN port/catheter care Multivitamins Therapeutic 1 tablet 02/20/25 09:00 02/22/25 09:18 Multivitamins Therapeutic Tab (*Bkc) PO 1 tablet DAILY GODWIN Administration Darolutamide [Nubeqa 600 mg 02/20/25 08:00 02/22/25 09:19 ] 300 Mg Tablet * PO 03/22/25 07:59 600 mg Home Supply* BIDWM GODWIN Administration Ondansetron HCl 4 mg 02/19/25 11:41 Ondansetron Inj 4 Mg/2 Ml Vial IV PUSH Q4H PRN Nausea Prednisone 5 mg 02/20/25 08:00 02/22/25 09:18 Prednisone 5 Mg Tablet PO 5 mg BIDWM GODWIN Administration Psyllium Hydrophilic Mucilloid 1 packet 02/20/25 09:00 02/22/25 09:17 Psyllium Powder Packet PO Not Given DAILY GODWIN Simvastatin 20 mg 02/19/25 22:05 02/21/25 20:38 Simvastatin 20 Mg Tablet PO 20 mg HS GODWIN Administration Radiology Results: ITS Impressions Ankle X-Ray 02/19/25 09:57 Impression: Unremarkable left ankle. Chest X-Ray 02/19/25 09:58 Impression: Clear lungs. Left-sided Mediport. Foot X-Ray 02/19/25 09:58 Impression: Severe degenerative change of the first MTP joint. Head CT 02/19/25 10:14 Impression: No significant abnormality seen. Venous Doppler Study 02/19/25 11:09 IMPRESSION: 1. No deep venous thrombosis in the left lower limb. Labs Labs: Laboratory Results - last 24 hr 02/21/25 02/22/25 12:04 06:12 WBC 3.2 L RBC 3.46 L Hgb 10.8 L Hct 31.1 L MCV 89.9 MCH 31.2 MCHC 34.7 RDW 13.4 Plt Count 104 L MPV 11.0 H Immature Gran % (Auto) 2.5 H Neut % (Auto) 65.3 Lymph % (Auto) 18.0 L [place] % (Auto) 12.0 H Eos % (Auto) 0.6 Baso % (Auto) 1.6 H Lymph # (Auto) 0.57 L [place] # (Auto) 0.4 Eos # (Auto) 0.0 Baso # (Auto) 0.1 Abs Immat Gran (auto) 0.08 H Absolute Neuts (auto) 2.1 Absolute Nucleated RBC 0.020 H Band Neutrophils % Not Reportable Nucleated RBC % 0.6 H Platelet Estimate Decreased Hypochromasia 1+ Anisocytosis 1+ Tear Drop Cells 1+ Michael Cells 1+ Schistocytes None seen Creatinine 0.79 Estim Creat Clear Calc 83 Estimated GFR > 60 Magnesium 2.3 Random Vancomycin < 5.0 L Quality VTE Prophylaxis VTE prophylaxis: mechanical ordered
[2025-02-22] MEDS: ceFAZolin 2 GM/D5W 50 ML 2 GM/50 ML BAG IVPB ×2 (11:56→18:42)
[2025-02-22 14:00] VITALS: BP 111/57; PULSE 85; RESP 18; TEMP 36.4; O2SAT 97
[2025-02-22 19:55] VITALS: BP 133/62; PULSE 78; RESP 16; TEMP 36.9; O2SAT 96
[2025-02-22] MEDS: SIMVASTATIN 20 MG TABLET PO (20:09)
[2025-02-23] MEDS: ceFAZolin 2 GM/D5W 50 ML 2 GM/50 ML BAG IVPB ×3 (04:26→18:02)
[2025-02-23 04:56] VITALS: BP 116/60; PULSE 73; RESP 16; TEMP 36.6; O2SAT 97
[2025-02-23 06:34] LABS: Basophils Percent Auto 0.1 % (0.2-1.2); Eosinophils Percent Auto 0.1 % (0-4.4); Hematocrit 29.8 % (42.0-52.0); Hemoglobin 10.3 g/dL (14.0-18.0); Immature Granulocyte Absolute 1.24 K/mm3 (0.00-0.031); Immature Granulocyte Percent A 8.7 % (0-0.5); Lymphocytes Absolute Auto 0.97 K/mm3 (0.9-3.2); Lymphocytes Percent Auto 6.8 % (18.3-44.2); Mean Corpuscular HGB Conc 34.6 g/dl (32-36); Mean Corpuscular Hemoglobin 31.4 pg (26-34); Mean Corpuscular Volume 90.9 fl (80-100); Monocytes Absolute Auto 0.9 K/mm3 (0.1-0.6); Monocytes Percent Auto 5.9 % (2.6-8.5); Neutrophils Absolute Auto 11.2 K/mm3 (1.3-6.7); Neutrophils Percent Auto 78.4 % (45.5-73.1); Nucleated Red Blood Cells Perc 0.3 % (0.0-0.2); Platelet Count Result 115 k/mm3 (150-375); Red Blood Count 3.28 M/mm3 (4.6-6.20); Red Cell Distribution Width 13.8 % (11.5-14.5); White Blood Count 14.3 K/mm3 (4.5-10.0)
[2025-02-23 06:53] LABS: Magnesium 2.2 mg/dL (1.6-2.3)
[2025-02-23 07:15] LABS: Hypochromasia 1+; Platelet Estimate Slightly Decreased (Adequate)
[2025-02-23 07:16] LABS: Schistocytes None Seen
[2025-02-23 08:00] VITALS: PULSE 73; RESP 16; O2SAT 97
[2025-02-23] MEDS: DAROLUTAMIDE 300 MG 600 EACH PO ×2 (09:16→18:00)
[2025-02-23] MEDS: MULTIVITAMINS THERAPEUTIC TAB (*BKC) 1 TABLET PO (09:18)
[2025-02-23] MEDS: predniSONE 5 MG TABLET PO ×2 (09:18→17:59)
--- NOTE | 2025-02-23 13:38 | PM.IMPN ---
Progress Note: A&P Assessment and Plan (1) Acute kidney injury: Code(s): N17.9 - Acute kidney failure, unspecified Status: Acute Assessment and Plan: - creatinine 1.4 and GFR 50, previously 0.9 and GFR >60 on 02/13/2025 - Improved - rpt BMP (2) Neutropenia: Qualifiers: Neutropenia type: secondary to cancer chemotherapy Qualified Code(s): D70.1 - Agranulocytosis secondary to cancer chemotherapy; T45.1X5A - Adverse effect of antineoplastic and immunosuppressive drugs, initial encounter Code(s): D70.9 - Neutropenia, unspecified Status: Acute Assessment and Plan: - WBC 0.8, hemoglobin 13.8, platelet count 128 - blood cultures obtained on 02/19, + for gram+ cocci growth - continue Cefazolin - secondary to chemotherapy - await repeat BC - pt is on neupogen (3) Prostate cancer: Code(s): C61 - Malignant neoplasm of prostate Status: Acute Assessment and Plan: - metastatic prostate cancer, currently undergoing chemotherapy with last treatment on 02/13 - patient's oncologist is Palma DIAZ - once pts anc above 500 can dc as per oncology md Plan Subjective Date/time seen: 02/23/25 13:38 Interval history: 69 y/o M with PMH of prostate cancer with mets to the bone (undergoing chemo), subdural hematoma (2011), and right retinal tear (2018) presents here with generalized weakness. 02/22/2025 Patient sitting comfortably in bed at time of examination. Denies any chest pain, shortness a bra, nausea/vomiting, or abdominal pain. Started on Nepogen 480mcg daily by Dr. Waldrop 02/20. ANC 2100, however blood cultures still + for gram+ cocci growth. Will need to obtain repeat BC tomorrow in order to consider discharge. No other concerns or complaints at this time. 02/23/2025 Awaiting rpt BC pending first BC shows staph aureus pt started on iv cefazolin yesterday continue IV cef today await BC result pts wcc is much better long discussion with pt about this Review of Systems Review of Systems: no specific complaints Exam Narrative: left lateral foot with dark hematoma. 1x3, slight erythema surrounding that blanches. DP pulses 2+. Const: General: comfortable and no acute distress Other: , male, nontoxic appearance HENMT: Face/Nose/Sinus: Normal nares present Mouth: Yes moist mucous membranes Eyes: General: appearance normal, both eyes and all related structures Sclera: sclerae normal Pupils: Equal, round and reactive pupils present EOM: EOMs intact bilaterally Resp: Effort & Inspection: normal respiratory effort Auscultation: clear to auscultation bilaterally Cardio: Rate: regular rate Rhythm: regular rhythm Other: S1-S2 present without murmur, rub, ectopy GI: Other: Abdomen soft, nondistended, nontender. Normoactive bowel sounds in all quadrants. Skin: General skin exam: normal color and no rashes or lesions noted Other: Area of purpura to left lateral foot measuring approximately 1 x 3 cm. Mild surrounding erythema that is blanchable. No active drainage. Neuro: Cranial nerves: Yes Equal, round and reactive pupils present Speech: normal speech Motor exam (neuro): 5/5 motor strength present throughout Sensory Exam: normal sensation Other: A&O x4 Extrem: General: normal exam except as noted Other: See skin exam Psych: Mental Status: mental status grossly normal Affect: normal affect Other: Good insight and judgment, pleasant Objective Data Vital Signs Vital Signs: Vital Signs - 24 hr 02/22/25 14:00 02/22/25 19:55 02/23/25 04:56 Temperature 36.4 C L 36.9 C 36.6 C Pulse Rate 85 78 73 Respiratory Rate 18 16 16 Blood Pressure 111/57 L 133/62 116/60 Pulse Oximetry 97 96 97 Oxygen Delivery Fraction of Inspired Oxygen 02/23/25 08:00 Temperature Pulse Rate 73 Respiratory Rate 16 Blood Pressure Pulse Oximetry 97 Oxygen Delivery Room Air Fraction of Inspired Oxygen 21 Intake/Output Intake/Output: Intake & Output 02/20/25 02/21/25 02/22/25 02/23/25 23:59 23:59 23:59 23:59 Intake Total 5100 2460 1670 450 Output Total 1652 3 Balance 3448 2460 1670 447 Meds/Results Medications: Active Medications Generic Name Dose Route Start Last Admin Trade Name Freq PRN Reason Stop Dose Admin Acetaminophen 1,000 mg 02/19/25 20:00 02/21/25 04:49 Acetaminophen 500 Mg Tablet PO 1,000 mg Q6H PRN Administration Mild Pain (1-3) or Fever Cefazolin Sodium 2 gm in 50 mls @ 100 mls/hr 02/22/25 11:00 02/23/25 12:10 Ancef 2 Gm/D5w 50 Ml IVPB 100 mls/hr Q8H GODWIN Administration Lidocaine/Prilocaine 1 each 02/19/25 22:02 Lidocaine/Prilocaine Cream 2.5-2.5% Tube TOPICAL DAILY PRN port/catheter care Multivitamins Therapeutic 1 tablet 02/20/25 09:00 02/23/25 09:18 Multivitamins Therapeutic Tab (*Bkc) PO 1 tablet DAILY GODWIN Administration Darolutamide [Nubeqa 600 mg 02/20/25 08:00 02/23/25 09:16 ] 300 Mg Tablet * PO 03/22/25 07:59 600 mg Home Supply* BIDWM GODWIN Administration Ondansetron HCl 4 mg 02/19/25 11:41 Ondansetron Inj 4 Mg/2 Ml Vial IV PUSH Q4H PRN Nausea Prednisone 5 mg 02/20/25 08:00 02/23/25 09:18 Prednisone 5 Mg Tablet PO 5 mg BIDWM GODWIN Administration Psyllium Hydrophilic Mucilloid 1 packet 02/20/25 09:00 02/23/25 09:18 Psyllium Powder Packet PO Not Given DAILY GODWIN Simvastatin 20 mg 02/19/25 22:05 02/22/25 20:09 Simvastatin 20 Mg Tablet PO 20 mg HS GODWIN Administration Radiology Results: ITS Impressions Ankle X-Ray 02/19/25 09:57 Impression: Unremarkable left ankle. Chest X-Ray 02/19/25 09:58 Impression: Clear lungs. Left-sided Mediport. Foot X-Ray 02/19/25 09:58 Impression: Severe degenerative change of the first MTP joint. Head CT 02/19/25 10:14 Impression: No significant abnormality seen. Venous Doppler Study 02/19/25 11:09 IMPRESSION: 1. No deep venous thrombosis in the left lower limb. Labs Labs: Laboratory Results - last 24 hr 02/23/25 02/23/25 06:13 06:23 WBC 14.3 H RBC 3.28 L Hgb 10.3 L Hct 29.8 L MCV 90.9 MCH 31.4 MCHC 34.6 RDW 13.8 Plt Count 115 L MPV 11.0 H Immature Gran % (Auto) 8.7 H Neut % (Auto) 78.4 H Lymph % (Auto) 6.8 L [place] % (Auto) 5.9 Eos % (Auto) 0.1 Baso % (Auto) 0.1 L Lymph # (Auto) 0.97 [place] # (Auto) 0.9 H Eos # (Auto) 0.0 Baso # (Auto) 0.0 Abs Immat Gran (auto) 1.24 H Absolute Neuts (auto) 11.2 H Absolute Nucleated RBC 0.040 H Band Neutrophils % Not Reportable Nucleated RBC % 0.3 H Platelet Estimate Slightly decreased Hypochromasia 1+ Schistocytes None seen Magnesium 2.2
[2025-02-23 14:00] VITALS: BP 127/62; PULSE 70; RESP 16; TEMP 36.9; O2SAT 96
[2025-02-23 16:19] LABS: Anion Gap 4 mmol/L (4-12); Blood Urea Nitrogen 12 mg/dL (9-20); Calcium 7.4 mg/dL (8.4-10.2); Carbon Dioxide 23 mmol/L (22-30); Chloride 107 mmol/L (98-107); Estimated CRCL calculation 95 ml/min; Estimated Glomerular Filt Rate > 60; Glucose 117 mg/dL (65-110); Potassium 3.1 mmol/L (3.4-5.0); Sodium 134 mmol/L (137-145)
[2025-02-23] MEDS: SIMVASTATIN 20 MG TABLET PO (20:23)
[2025-02-23 20:33] VITALS: BP 144/68; PULSE 91; RESP 20; TEMP 36.6; O2SAT 98
[2025-02-23 21:13] VITALS: O2SAT 98
[2025-02-24] MEDS: ceFAZolin 2 GM/D5W 50 ML 2 GM/50 ML BAG IVPB ×2 (02:52→10:49)
[2025-02-24 05:56] VITALS: BP 117/62; PULSE 77; RESP 20; TEMP 37.3; O2SAT 97
[2025-02-24 06:05] LABS: Basophils Absolute Auto 0.1 K/mm3 (0.0-0.1); Basophils Percent Auto 0.8 % (0.2-1.2); Eosinophils Percent Auto 0.1 % (0-4.4); Hematocrit 29.1 % (42.0-52.0); Immature Granulocyte Percent A 11.4 % (0-0.5); Lymphocytes Absolute Auto 0.77 K/mm3 (0.9-3.2); Lymphocytes Percent Auto 4.6 % (18.3-44.2); Mean Corpuscular HGB Conc 34.4 g/dl (32-36); Mean Corpuscular Volume 90.1 fl (80-100); Mean Platelet Volume 11.1 fl (7.4-10.4); Monocytes Absolute Auto 0.6 K/mm3 (0.1-0.6); Monocytes Percent Auto 3.3 % (2.6-8.5); Neutrophils Absolute Auto 13.2 K/mm3 (1.3-6.7); Neutrophils Percent Auto 79.8 % (45.5-73.1); Nucleated Red Blood Cells Perc 0.3 % (0.0-0.2); Platelet Count Result 134 k/mm3 (150-375); Red Blood Count 3.23 M/mm3 (4.6-6.20); Red Cell Distribution Width 14.2 % (11.5-14.5); White Blood Count 16.6 K/mm3 (4.5-10.0)
[2025-02-24 06:14] LABS: Magnesium 2.1 mg/dL (1.6-2.3)
[2025-02-24 06:46] LABS: Anisocytosis 1+; Hypochromasia 1+; Platelet Estimate Adequate (Adequate); Poikilocytosis 1+
[2025-02-24 06:47] LABS: Schistocytes None Seen; Tear Drop Cells 1+
[2025-02-24] MEDS: predniSONE 5 MG TABLET PO (08:19)
[2025-02-24] MEDS: MULTIVITAMINS THERAPEUTIC TAB (*BKC) 1 TABLET PO (08:19)
[2025-02-24] MEDS: PSYLLIUM POWDER PACKET 1 PACKET PO (08:19)
[2025-02-24] MEDS: DAROLUTAMIDE 300 MG 600 EACH PO (08:22)
--- NOTE | 2025-02-24 13:16 | PM.DS ---
DS: Admitting Diagnosis Discharge Date 02/24/2025 Admitting Diagnosis weakness DS: Discharge Diagnosis Discharge Diagnosis (1) Acute kidney injury: Code(s): N17.9 - Acute kidney failure, unspecified Status: Acute Assessment and Plan: - creatinine 1.4 and GFR 50, previously 0.9 and GFR >60 on 02/13/2025 - Improved (2) Neutropenia: Qualifiers: Neutropenia type: secondary to cancer chemotherapy Qualified Code(s): D70.1 - Agranulocytosis secondary to cancer chemotherapy; T45.1X5A - Adverse effect of antineoplastic and immunosuppressive drugs, initial encounter Code(s): D70.9 - Neutropenia, unspecified Status: Acute Assessment and Plan: - WBC 0.8, hemoglobin 13.8, platelet count 128 - blood cultures obtained on 02/19, + for gram+ cocci growth - continue Cefazolin - secondary to chemotherapy - await repeat BC - pt is on neupogen (3) Prostate cancer: Code(s): C61 - Malignant neoplasm of prostate Status: Acute Assessment and Plan: - metastatic prostate cancer, currently undergoing chemotherapy with last treatment on 02/13 - patient's oncologist is Palma DIAZ - once pts anc above 500 can dc as per oncology md Plan DS: Summary Hospital Course Hospital Course: 69 year old male pmh of prostate cancer and mets to the bone history of prostate cancer with mets to the bone undergoing chemo follows dr waldrop Status at Discharge Cognitive/behavioral status at discharge: stable Time Spent with Patient Time attestation: Total time spent providing and/or coordinating discharge services:55 minutes on day of dc Exam Narrative: left lateral foot with dark hematoma. 1x3, slight erythema surrounding that blanches. DP pulses 2+. Const: General: comfortable and no acute distress Other: , male, nontoxic appearance HENMT: Face/Nose/Sinus: Normal nares present Mouth: Yes moist mucous membranes Eyes: General: appearance normal, both eyes and all related structures Sclera: sclerae normal Pupils: Equal, round and reactive pupils present EOM: EOMs intact bilaterally Resp: Effort & Inspection: normal respiratory effort Auscultation: clear to auscultation bilaterally Cardio: Rate: regular rate Rhythm: regular rhythm Other: S1-S2 present without murmur, rub, ectopy GI: Other: Abdomen soft, nondistended, nontender. Normoactive bowel sounds in all quadrants. Skin: General skin exam: normal color and no rashes or lesions noted Other: Area of purpura to left lateral foot measuring approximately 1 x 3 cm. Mild surrounding erythema that is blanchable. No active drainage. Neuro: Cranial nerves: Yes Equal, round and reactive pupils present Speech: normal speech Motor exam (neuro): 5/5 motor strength present throughout Sensory Exam: normal sensation Other: A&O x4 Extrem: General: normal exam except as noted Other: See skin exam Psych: Mental Status: mental status grossly normal Affect: normal affect Other: Good insight and judgment, pleasant DS: Data Data Completed and Pending Labs on day of discharge: Labs from last 24 hours 02/24/25 02/23/25 05:42 06:13 WBC 16.6 H RBC 3.23 L Hgb 10.0 L Hct 29.1 L MCV 90.1 MCH 31.0 MCHC 34.4 RDW 14.2 Plt Count 134 L MPV 11.1 H Immature Gran % (Auto) 11.4 H Neut % (Auto) 79.8 H Lymph % (Auto) 4.6 L [place] % (Auto) 3.3 Eos % (Auto) 0.1 Baso % (Auto) 0.8 Lymph # (Auto) 0.77 L [place] # (Auto) 0.6 Eos # (Auto) 0.0 Baso # (Auto) 0.1 Abs Immat Gran (auto) 1.90 H Absolute Neuts (auto) 13.2 H Absolute Nucleated RBC 0.050 H Band Neutrophils % Not Reportable Nucleated RBC % 0.3 H Platelet Estimate Adequate % Immature Plt Fraction 8.0 Hypochromasia 1+ Poikilocytosis 1+ Anisocytosis 1+ Tear Drop Cells 1+ Schistocytes None seen Sodium 134 L Potassium 3.1 L Chloride 107 Carbon Dioxide 23 Anion Gap 4 BUN 12 Creatinine 0.68 L Estim Creat Clear Calc 95 Estimated GFR > 60 Glucose 117 H Calcium 7.4 L Magnesium 2.1 Preliminary micro results at discharge 02/23/25 06:13 Blood Culture - Preliminary Blood 02/23/25 06:24 Blood Culture - Preliminary Blood 02/19/25 12:34 Blood Culture - Preliminary Blood Staphylococcus aureus Discharge Plan Discharge Attending physician on discharge: Mindy Parker Consulting providers: Tank Waldrop; Chepe Arango; Aidee Youssef; Piero Nguyen; Solo Newman; Isaiah Dietz Discharging Clinician: Mindy Parker Anticipated Discharge Date/Time: 02/24/25 13:04 Patient Disposition: Home Activity: as tolerated Diet: as tolerated Patient Instructions: Antibiotic Form Patient Language: Japanese Stand Alone Forms: General Discharge Information Follow-up/Referrals: Tank Waldrop MD [Physician] - Discharge Medications: Continued ondansetron HCl 8 mg tablet 8 mg PO Q8H PRN (Reason: nausea and vomiting) Metamucil 3.4 gram/5.4 gram powder 1 tbsp PO DAILY Rx Instructions: mix into at least 8 oz of water or juice before administering flaxseed oil 1,300 mg capsule 2,600 mg PO DAILY lidocaine-prilocaine 2.5-2.5 % cream 1 applic topical DAILY PRN (Reason: port/catheter care) Patient Comments: To be applied 30 minutes prior to port access simvastatin 20 mg tablet See Rx Instructions .ROUTE .COMPLEX Rx Instructions: TAKE 1 TABLET BY MOUTH EVERY NIGHT multivitamin Tablet 1 tablet PO DAILY No Action amoxicillin-pot clavulanate 875-125 mg tablet 1 tablet PO Q12H Qty: 20 0RF Date of admission: 02/19/25 14:12 Primary Care Provider: Jose,Winsome Guevara Admitting Provider: Dario Ovalle Attending physician on admission: Mindy Parker Condition: Stable
== END 2025-02-24 13:40 | disposition home or self-care (01) | DRG 809 ==
LOC: ANHED 11:47 → ANHIMU 13:40 → ANH3MEDSUR 02-21 10:08 → ANHIMU 02-25 13:31
PROVIDERS: Student in an Organized Health Care Education/Training Program; Admitting Provider Family Medicine; Emergency Provider Emergency Medicine; PCP Hospitalist; Visit Provider Family Medicine
DX: D70.1 Agranulocytosis secondary to cancer chemotherapy (principal); C79.51 Secondary malignant neoplasm of bone; R78.81 Bacteremia; N17.9 Acute kidney failure, unspecified; L03.116 Cellulitis of left lower limb; C61 Malignant neoplasm of prostate; E78.2 Mixed hyperlipidemia; Z20.822 Contact with and (suspected) exposure to COVID-19; T45.1X5A Adverse effect of antineoplastic and immunosuppressive drugs, initial encounter
CPT/HCPCS: 36415; 70450; 71045; 73610; 73630; 80048; 80053; 80202; 81001; 82565; 83605; 83735; 84100; 84484; 85025; 85055; 85610; 85730; 87040; 87181; 87637; 93005; 93971; 96361; 96365; 96366; 96367; 96372; 96375; 99285; A9270; G0378; J0612; J0690; J0692; J1885; J3370; J7030; J7512; Q5101

== ENCOUNTER 2025-03-04 12:14 | Day surgery (SDC) | payer MEDICARE, SELFPAY ==
[2025-03-04 12:40] VITALS: BP 136/76; PULSE 90; RESP 16; TEMP 36.9; O2SAT 100
--- NOTE | 2025-03-04 12:52 | WPDHPUPDATE1 ---
History and Physical Update Update Date/Time: 03/04/25 12:52 History and Physical has been reviewed, including an updated exam of the patient. There are NO changes in the patient's condition. Risks, benefits, and alternatives have been discussed and questions answered. Patient agrees to proceed with procedure.
[2025-03-04 12:55] VITALS: BP 150/78; PULSE 81; RESP 12; O2SAT 100
[2025-03-04] MEDS: BUPIVACAINE/EPINEPHRINE 0.5% 50 ML VIAL 20 ML INFILTRATE (13:00)
[2025-03-04 13:05] VITALS: BP 148/77; PULSE 94; RESP 14; O2SAT 99
[2025-03-04 13:12] VITALS: BP 139/60; PULSE 87; RESP 16; O2SAT 100
--- NOTE | 2025-03-04 13:27 | W.PM.PROC2 ---
Procedure Note - Detailed Date of Procedure 03/04/25 Pre-op Diagnosis infected left subclavian Port-A-Cath Post-op Diagnosis Same Procedure Performed removal of left subclavian infected Port-A-Cath Surgeon Lynda Jerome MD Anesthesia Local Indications 69-year-old male presenting to the office with infected left subclavian Port-A-Cath Findings infected left subclavian Port-A-Cath Description of Procedure The patient was taken to the operating room and placed in the supine position. He was then prepped and draped in the normal sterile fashion. A time-out then done to verify the patient's identity, as well as procedure being performed. I began by localizing area in and around this infected left subclavian Port-A-Cath. There were multiple openings along incision line draining purulent fluid. Once adequately anesthetized, I used a 15 blade scalpel to open up the previous incision. A large amount purulent drainage was noted. I then used a hemostat to bluntly dissect around the port and the cavity. Once the port was completely free, I cut the sutures holding in the port. The port was then removed from the subcutaneous pocket. I then was able to remove the catheter in full. I then held pressure at the level of the left subclavian vein for few minutes. Hemostasis was noted. I then copiously irrigated the port cavity. No other abscess was noted in the cavity. I then packed the cavity with half-inch iodoform. Sterile dressing was then placed. The patient tolerated the procedure well. He was alert awake postoperatively. He will be transferred to the recovery room stable condition. Estimated Blood Loss 5 Packing Yes Pathology None sent Complications No immediate complications Condition Stable Disposition PACU [facility] Billing Surgery - Charge Forward: Surgery Billing
--- OUTSIDE RECORDS SUMMARY | 2025-03-04 13:29 | XMS_ITS | Encounter Summary ---
Author Organization [facility] Address [address] [place] [address] Care Team Providers Care Nps Name Role Phone Antonio Rose MD Primary Care Provider [phone] Encounter Details Date Type Department Care Team (Late st Contact Info) Description 04/08/2021 Lab Requisition [facility] DermPath Lab [address] [place] [address] Ha Le MD [address] [address] Social History Tobacco Use Types Packs/Day Years Used Date Smoking Tobacco: Never Assessed Sex and Gender Information Value Date Recorded Sex Assigned at Not on file 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 Gender Identity Not on file Sexual Orientation Not on file documented as of this encounter Plan of Treatment Not on file documented as of this encounter Procedures Procedure Name Priority Date/Time Associated Diagnosis Comments DERMATOPATHOLOGY Routine 04/06/2021 3:33 AM CDT documented in this encounter Results * DERMATOPATHOLOGY (04/06/2021 3:33 AM CDT) Case Report Dermatopathology Report Case: [id number] Authorizing Provider: Ha Le MD Collected: 04/06/2021 03:33 AM Ordering Location: [facility] DermPath Lab Received: 04/08/2021 05:40 AM Pathologist: Reina Mario MD Specimen: Skin, right crown 4:52 PM CDT DERMATOPATHOLOGY LABORATORY Final Diagnosis Specimen A. SKIN, right crown: HYPERPLASTIC (HYPERTROPHIC) ACTINIC KERATOSIS (L57.0) OVERLYING CUTANEOUS HORN (L85.8) 1 4:52 PM CDT DERMATOPATHOLOGY LABORATORY at 1652 CDT Clinical History AK vs BCCA vs SCCA. Path # [id number]. 4:52 PM CDT DERMATOPATHOLOGY LABORATORY Gross Description Specimen A: Received is one formalin filled container labeled with the patient's name and designated right crown. The specimen consists of a shave biopsy measuring [id number]. Jar 0. 1 4:52 PM CDT DERMATOPATHOLOGY [...] characteristic determined by the Dermatopathology Laboratory at [facility], directed by Dr. Ismael Mario. These tests need not be, and therefore are not, approved by the [place] Food and Drug Administration. The tests are used for clinical purposes. Billing Codes Specimen Charges Stain Charges 75732 1 1 4:52 PM CDT DERMATOPATHOLOGY LABORATORY Embedded Images 4:52 PM CDT DERMATOPATHOLOGY LABORATORY Pathology/Cytolo gy TISSUE SPECIMEN FROM SKIN / Unknown 04/06/2021 3:33 AM CDT 04/08/2021 5:40 AM CDT us Ha Le MD LAB - PATHOLOGY/CYTOLOGY ORDER TENA Final Result DERMATOPATHOLOGY LABORATORY [facility] - Department of Dermatology [address] [phone] documented in this encounter Visit Diagnoses Not on filedocumented in this encounter Care Teams Nps Relationship Specialty Start Date End Date Antonio Rose MD [address] [address] PCP - General 08/12/20 documented as of this encounter
--- OUTSIDE RECORDS SUMMARY | 2025-03-04 13:29 | XMS_ITS | Encounter Summary ---
Author Organization [facility] [employer] [facility] Address [address] [place] [address] Care Team Providers Care Bronc Buster Name Role Phone Unavailable Primary Care Provider Unavailabl e Encounter Details Date Type Department Care Team (Late Contact Info) Description 03/01/2025 Orders Only [facility] Oncology [facility] Hematology [facility] [address] [place] [address] Tank Waldrop MD [address] [place] [address] [employer] [address] [place] [phone] Social History Tobacco Use Types Packs/Day Years Used Date Smoking Tobacco: Never Smokeless Tobacco: Never Alcohol Use Standard Drinks/Week Comments Yes 0 (1 standard drink = 0.6 oz pur e alcohol) Occasionally Sex and Gender Information Value Date Recorded Sex Assigned at Not on file 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 Gender Identity Not on file Sexual Orientation Not on file documented as of this encounter Plan of Treatment Upcoming Encounters Date Type Department Care Team (Late Contact Info) Description 03/11/2025 8:45 AM CDT Office Visit [facility] Oncology and Hematology [place] [address] [place] [address] Tank Waldrop MD [address] [place] [address] [employer] [address] [place] [phone] documented as of this encounter Procedures Procedure Name Priority Date/Time Associated Diagnosis Comments COMPREHENSIVE METABOLIC PANEL Routine 02/13/2025 10:38 AM CDT BASIC METABOLIC PANEL Routine 02/13/2025 10:25 AM CDT documented in this encounter Results * COMPREHENSIVE METABOLIC PANEL (02/13/2025 10:38 AM CDT) Blood us Tank Waldrop MD CHEMISTRY ORDERABLES Final Resu lt * BASIC METABOLIC PANEL (02/13/2025 10:25 AM CDT) Blood us Tank Waldrop MD CHEMISTRY ORDERABLES Final Resu lt documented in this encounter Visit Diagnoses Not on filedocumented in this encounter
--- OUTSIDE RECORDS SUMMARY | 2025-03-04 13:29 | XMS_ITS | Clinical Summary ---
Author Organization [facility] Address [address] [place] [address] Care Team Providers Care Puppy Walker Name Role Phone Antonio Rose MD Primary Care Provider [phone] Source Comments [facility],non-owned Affiliates and Associated Physician Practices is amultiple site organization consisting of ambulatory clinics and hospital sitesin [place], [place], [place] and [place]. This disclosure is being madepursuant to the Care Everywhere program and may not contain all information available regarding this patient. 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 Gender Identity Not on file Sexual Orientation [...] age to complete this topic Insurance MEDICARE [facility] * Guarantor: VALENTE PRESCOTT Account Type Relation to Patient Date of Phone Billing Address Personal/Family [address] [place] [address] MEDICARE AAR Member Subscriber Plan / Payer (Ef fective for All Dates) Name:Valente Prescott Relation to Subscriber:Self Name:Valente Prescott Payer ID:Not on file Group ID:Not on file Type:Commercial Address: [place] [phone] * Guarantor: VALENTE PRESCOTT Account Type Relation to Patient Date of Phone Billing Address Personal/Family [address] [place] [address] MEDICARE [facility] * Guarantor: VALENTE PRESCOTT Account Type Relation to Patient Date of Phone Billing Address Personal/Family [address] [place] [address] MEDICARE [employer] Care Teams Puppy Walker Relationship Specialty Start Date End Date Antonio Rose MD [address] [place] [address] PCP - General 08/12/20
--- OUTSIDE RECORDS SUMMARY | 2025-03-04 13:29 | XMS_ITS | Referral Summary ---
Author Organization [facility] Address [address] [place] [address] Care Team Providers Care Byproducts Supervisor Name Role Phone Winsome Garcia MD Primary Care Pro vider Encounters Date Type Department Care Team Description 01/08/2025 11:15 AM CDT Office Visit [facility] Primary Care at [address] [address] Winsome Garcia MD Pre-diabetes (Primary Dx); Mixed hyperlipidemia; Prostate cancer (HCC); Metastasis to bone (HCC); History of skin cancer; Bilateral impacted cerumen; Encounter for annual wellness visit (AWV) in Medicare patient; Vitamin D deficiency 01/01/2025 Results Follow-Up [facility] Family Medicine [address] [address] Winsome Garcia MD Lipid panel, Comprehensive metabolic panel, Hemoglobin A1c, eGFR 01/01/2025 7:10 AM CDT Lab [facility] Office Building [address] [phone] Mixed hyperlipidemia; Pre-diabetes 12/31/2024 Telephone [facility] Primary Care at [address] [address] Winsome Garcia MD Medical Question/Miscellaneou s [...] reviewed Reviewed medications and supplements Specialists: urology, casing inspector, & optho no evidence of cognitive impairment HCM: orders placed as needed Assessment & Plan (06/03/2023 8:46 AM CDT): Reviewed PMH & PHQ Screening PHQ-2 Total Score (If total score is 3 or more points, staff should administer the PHQ-9): 0 Hearing/vision screening reviewed, referrals placed as needed Fall risk reviewed Reviewed medications and supplements Specialists: urology, radiation oncology, casing inspector, & optho no evidence of cognitive impairment HCM: orders placed as needed Assessment & Plan (05/17/2022 1:28 PM CDT): Reviewed PMH & PHQ Screening PHQ-2 Total Score (If total score is 3 or more points, staff should administer the PHQ-9): 0 Hearing/vision screening reviewed, referrals placed as needed Fall risk reviewed Reviewed medications and supplements Specialists: urology, casing inspector, orthopedics & optho no evidence of cognitive impairment HCM: orders placed as needed Elevated glucose 11/17/2021 Assessment & Plan (06/03/2023 8:39 AM CDT): stable Assessment & Plan (11/26/2022 3:26 PM TARE MAN): Rechekc a1c Assessment & Plan (05/17/2022 12:59 PM CDT): Lab Results Component Value Date HGBA1C 5.7 (H) 05/11/2022 Improved Continue to monitor History of vitreous hemorrhage of right eye 01/2019 Assessment & Plan (07/31/2019 12:35 PM TARE MAN): F/u from ED on 07/23/19. Slowly improving though still dense vitreous (vit) heme centrally - vision stable from last visit - superotemporal tear with adequate laser surrounding, no subretinal fluid around tear or retinal detachment - recommend follow-up in 4 weeks to assess how vitreous (vit) heme is settling - pt has scheduled appointment with forging roll operator in early August (about one month). Plans [...] statin Assessment & Plan (11/26/2022 5:15 PM TARE MAN): Recheck lipids Continue statin pending results Discussed diet Assessment & Plan (05/17/2022 12:58 PM CDT): Reviewed lipids, LDL mildly above goal Discussed diet/exercise Continue simvastatin Continue to monitor Assessment & Plan (11/17/2021 1:39 PM TARE MAN): Lipids at goal LFT within normal limits [...] oncology Assessment & Plan (11/26/2022 3:27 PM TARE MAN): Following with urology Assessment & Plan (05/17/2022 12:57 PM CDT): Following with urology Assessment & Plan (11/17/2021 1:36 PM TARE MAN): Following with urology Arthritis of big toe Assessment & Plan (01/02/2024 1:52 PM CDT): stable Assessment & Plan (06/03/2023 8:46 AM CDT): stable Assessment & Plan (11/26/2022 3:26 PM TARE MAN): Following with orthopedics Assessment & Plan (05/17/2022 12:58 PM CDT): Following with orthopedics Assessment & Plan (11/17/2021 1:37 PM TARE MAN): Stable Following with orthopedics History of skin cancer Assessment & Plan (01/08/2025 11:13 AM CDT): Following with casing inspector Assessment & Plan (07/10/2024 1:13 PM CDT): Following with casing inspector Assessment & Plan (01/02/2024 1:52 PM CDT): Following with casing inspector Assessment & Plan (06/03/2023 8:39 AM CDT): Following with casing inspector Assessment & Plan (11/26/2022 3:26 PM TARE MAN): Following with casing inspector Assessment & Plan (05/17/2022 12:57 PM CDT): Following with casing inspector Assessment & Plan (11/17/2021 1:37 PM TARE MAN): Following with derm Resolved Problems Problem Noted [...] on file Legal Sex Male 9:49 AM TARE MAN Gender Identity Not on file Sexual [...] was last reviewed 2021. Testing performed by: [address] [address] Blood 01/01/2025 7:15 AM CDT 01/01/2025 9:40 AM CDT Winsome Garcia MD LAB BLOOD ORDERAB LES Final Result Performing Organization Address [facility] Co de Phone Number [place] [phone] [facility] [place] [address] * (ABNORMAL) Hemoglobin A1c (01/01/2025 7:15 AM CDT) [facility] Hgb A1C 6.3(H) 4.0 - 5.6 % Comment:Testing performed by : [address] [address] Estimated Average Glucose 134 mg/dL JOSEPH VICK Comment: The ADA recommends reporting an estimated Average Glucose (eAG) with all Hemoglobin A1c results using the equation derived from a study of 507 normal and diabetic adults. Minority populations were underrepresented and children were not included. (Diabetes Care 31:5952-8845, 2008). The eAG is not equivalent to a fasting glucose. Testing performed by: [address] [address] Blood 01/01/2025 7:15 AM CDT 01/01/2025 9:42 AM CDT Winsome Garcia MD LAB BLOOD ORDERAB LES Final Result Performing Organization Address [facility] Co de Phone Number [place] [phone] [facility] [place] [place] [address] * Lipid panel (01/01/2025 7:15 AM CDT) [facility] Signature Cholesterol 176 30 - 199 [...] last revised on 2018. Testing performed by: [address] [address] Triglycerides 132 <=149 mg/dL [facility] Comment: Interpretive Data Ages < or = [...] last revised on 2018. Testing performed by: [address] [address] HDL 60 >=40 mg/dL JOSEPH Comment: Interpretive [...] last revised on 2018. Testing performed by: [address] [address] LDL, calculated 93 <=129 mg/dL JOSEPH VICK [...] NCEP Expert Panel. Circulation 2004;110:227 3. Nino Huang et al. BONY Cardiol. 2019January 24;5(5):540-548. doi: 10.1001/jamacardio.2020.0013 Current Interpretive Data was last revised on 2024. Testing performed by: [address] [address] Non-HDL Cholesterol 116 mg/dL JOSEPH VICK Comment: [...] last revised on 2018. Testing performed by: [address] [address] Chol/HDL ratio 3 JOSEPH Comment:Testing performed by : [address] [address] Blood 01/01/2025 7:15 AM CDT 01/01/2025 9:40 AM CDT us Winsome Garcia MD LAB BLOOD ORDERAB LES Final Result JOSEPH [address] [facility] Department [place] [address] * Comprehensive metabolic panel (01/01/2025 7:15 AM CDT) Sodium 138 135 - 145 mmol/L Comment:Testing performed by : [address] [address] Potassium, pl 4.6 3.3 - 4.9 mmol/L JOSEPH Comment:Testing performed by : [address] [address] Chloride 103 97 - 110 mmol/L JOSEPH Comment:Testing performed by : [address] [address] CO2 26 22 - 32 mmol/L JOSEPH Comment:Testing performed by : [address] [address] Anion gap 9 2 - 15 mmol/L JOSEPH Comment:Testing performed by : [address] [address] BUN 17 6 - 25 mg/dL JOSEPH Comment:Testing performed by : [address] [address] Creatinine 1.00 0.80 - 1.30 mg/dL JOSEPH Comment:Testing performed by : [address] [address] Glucose 128 70 - 199 mg/dL JOSEPH [...] was last revised 2022. Testing performed by: [facility], [address] [place] [address]., [address] Calcium 9.0 8.5 - 10.3 mg/dL JOSEPH Comment:Testing performed by : [address] [address] Bilirubin, total 0.6 0.1 - 1.2 mg/dL [facility] Comment:Testing performed by : [address] [address] Protein, pl 7.2 6.5 - 8.5 g/dL [facility] Comment:Testing performed by : [address] [address] Albumin 4.1 3.5 - 5.0 g/dL [facility] Comment:Testing performed by : [address] [address] Alk phos 82 40 - 130 Units/L [facility] Comment:Testing performed by : [address] [address] ALT 20 7 - 55 Units/L [facility] Comment:Testing performed by : [address] [address] AST 18 10 - 50 Units/L [facility] Comment:Testing performed by : [address] [address] Blood 01/01/2025 7:15 AM CDT 01/01/2025 9:40 AM CDT Winsome Gacria MD LAB BLOOD ORDERAB LES Final Result JOSEPH [address] [facility] Department of Laboratories [place], [place] [id number] * Hepatitis C antibody Blood (07/04/2024 7:16 [...] MICROBIOLOGY - GENERAL ORDERABLES Final Result JOSEPH [address] [facility] Department [place] [address] * HM COLONOSCOPY (02/16/2024) Greta Provider HEALTH MAINTENANCE Final Result from Last 3 Months or Most Recently Relevant to Health Maintenance Insurance MEDICARE [facility] MEDICARE [facility] MEDICARE [facility] Care Teams Byproducts Supervisor Relationship Specialty Start Date End Date Winsome Garcia MD PCP - General Family Medicine 11/16/21
--- OUTSIDE RECORDS SUMMARY | 2025-03-04 13:29 | XMS_ITS | Clinical Summary ---
Author Organization [facility] rob Ronald Address [address] [place] [address] Care Team Providers Care Supervisor Pipeline Name Role Phone Unavailable Primary Care Provider [...] with Docetaxel. 12 Tablet 6 5 Active clindamycin (CLEOCIN) 150 mg capsule Take 1 Capsule by mouth 3 times daily. 5 Active Active Problems No known active problems Encounters Date Type Department Care Team Description 03/04/2025 11:15 AM CDT Office Visit [facility] Oncology and Hematology [facility] [address] [place] [address] Tank Waldrop MD Prostate cancer (CMS/HCC) (Primary Dx) 03/04/2025 Orders Only [facility] Hemat[facility] [address] [place] [phone] Tank Waldrop MD Prostate cancer ([facility]/HCC) 03/01/2025 Orders Only [facility]cology and Hematology - [place] [address] [place] [phone] Tank Waldrop MD 02/25/2025 Orders Only [facility] and Hematology - [place] [address] [place] [phone] Tank Waldrop MD Prostate cancer ([facility]/HCC) 02/19/2025 External Device Data STL ABSTRACTION Provider, Abstract 02/18/2025 Orders Only [facility] Hematology [facility] [address] [place] [phone] Tank Waldrop MD Prostate cancer ([facility]) 02/14/2025 External Device Data STL ABSTRACTION Provider, Abstract 02/13/2025 9:30 AM CDT Office Visit [facility] Hematology [facility] [address] [place] [phone] Tank Waldrop MD Prostate cancer ([facility]) (Primary Dx) 02/13/2025 External Device Data STL ABSTRACTION Provider, Abstract 02/12/2025 External Device Data STL ABSTRACTION Provider, Abstract 02/11/2025 Orders Only [facility]ematology - [place] [address] [place] [address] Tank Waldrop MD Prostate cancer ([facility]/HCC) 02/04/2025 Orders Only [facility] Hematology - [place] [address] [place] [address] Tank Waldrop MD Prostate cancer ([facility]/HCC) 01/28/2025 Orders Only [facility] Hematology - [place] [address] [place] [address] Tank Waldrop MD Prostate cancer ([facility]/HCC) 01/23/2025 8:45 AM CDT Office Visit [facility] Hematology - [place] [address] [place] [phone] Tank Waldrop MD Prostate cancer ([facility]/HCC) (Primary Dx) 01/23/2025 Orders Only [facility]ology - [place] [address] Tank Waldrop MD 01/21/2025 Orders Only [facility]ology - [place] [address] [place] [address] Tank Waldrop MD Prostate cancer ([facility]/HCC) 01/16/2025 Orders Only [facility]ematology - [place] [address] [place] [phone] Tank Waldrop MD Prostate cancer ([facility]/HCC) (Primary Dx) 01/14/2025 Orders Only [facility]ematology - [place] [address] [place] [address] Tank Waldrop MD Prostate cancer ([facility]/HCC) 01/08/2025 External Device Data STL ABSTRACTION Provider, Abstract 01/07/2025 Orders Only [facility] Hematology - [place] [address] [place] [address] Tank Waldrop MD Prostate cancer ([facility]/HCC) 01/04/2025 Abstract [facility] - [place] [address] [place] [address] Tank Waldrop MD 01/02/2025 Orders Only [facility] Hematology - [place] [address] [place] [address] Tank Waldrop MD Prostate cancer ([facility]/HCC) (Primary Dx) 01/02/2025 Orders Only [facility] Hematology - [place] [address] [place] [phone] Tank Waldrop MD Prostate cancer (CMS/HCC) (Primary Dx) 12/27/2024 Orders Only [facility] Hematology [facility] [address] [place] [phone] Tank Waldrop MD Prostate cancer (CMS/HCC) (Primary Dx) 12/25/2024 Refill [facility] [address] [place] [address] Tank Waldrop MD 12/18/2024 External Device Data STL ABSTRACTION Provider, Abstract 12/18/2024 External Device Data STL ABSTRACTION Provider, Abstract 12/18/2024 External Device Data STL ABSTRACTION Provider, Abstract 12/12/2024 10:30 AM CDT Office Visit [facility] On[facility] [address] [place] [address] Tank Waldrop MD Prostate cancer (CMS/HCC) (Primary [...] on file 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 Gender Identity Not on file Sexual Orientation Not on file Last Filed Vital Signs Vital Sign Reading Time Taken Comments Blood Pressure 139/80 03/04/2025 10:41 AM CDT Pulse 97 03/04/2025 10:39 AM CDT Temperature 36.4 C (97.5 F) 03/04/2025 10:39 AM CDT Respiratory Rate 15 03/04/2025 10:39 AM CDT Oxygen Saturation 97% 03/04/2025 10:39 AM CDT Inhaled Oxygen Concentration - - Weight 81.6 kg (180 lb) 03/04/2025 10:39 AM CDT Height 182.9 cm (6') 12/12/2024 10:29 AM CDT Body Mass Index 24.41 12/12/2024 10:29 AM CDT Plan of Treatment Upcoming Encounters Date Type Department Care Team (Late st Contact Info) Description 03/11/2025 8:45 AM CDT Office Visit [facility] Oncology and Hematology - [place] [address] [facility] [address] [place] [address] Tank Waldrop MD [address] [facility] [address] [place] [address] Health Maintenance Due Date Last Done Comments Pre-Diabetes and Diabetes Screening 1954 DTAP/TDAP/TD VACCINES (1 - Tdap) 1973 Traditional Medicare (ACO) A nnual Wellness Visit 1973 COLORECTAL SCREENING 1999 Colorectal Cancer Screening 1999 FIT-DNA Q 3 years 1999 FIT/FOBT Q 1 year 1999 Flex Sig/CT Colonography Q 5 years 1999 ZOSTER VACCINE (1 of 2) 2004 COVID-19 Vaccine ( - 2023-2 5 season) 2024 07/31/2021, 12/17/2020, 11/19/2020 RSV VACCINE (60+ or ) (1 - 1-dose 75+ series) 2029 PNEUMOCOCCAL VACCINE 50+ YEARS Completed 05/17/2022 , 08/19/2020 INFLUENZA VACCINE Completed 07/10/2024, , 06/19/2022, Additional history exists Procedures Procedure Name Priority Date/Time Associated Diagnosis Comments BASIC METABOLIC PANEL Routine 03/04/2025 12:32 PM CDT CBC WITH AUTODIFFERENTIAL Routine 2024 12:28 PM CDT COMPREHENSIVE METABOLIC PANEL Routine 02/13/2025 10:38 AM CDT BASIC METABOLIC PANEL Routine 02/13/2025 10:25 AM CDT COMPREHENSIVE METABOLIC PANEL Routine 01/23/2025 11:55 AM CDT BASIC METABOLIC PANEL Routine 01/23/2025 11:52 AM CDT CBC MIXED CELL DIFFERENTIAL Routine 12/27 9:41 AM CDT BASIC METABOLIC PANEL Routine 01/02/2025 1:41 PM CDT from Last 3 Months Results * BASIC METABOLIC PANEL (03/04/2025 12:32 PM CDT) Only the most recent of4 resultswithin the time period is included. Blood us Tank Waldrop MD CHEMISTRY ORDERABLES Final Resu lt * CBC WITH AUTODIFFERENTIAL (03/04/2025 12:28 PM CDT) Blood us Tank Waldrop MD HEMATOLOGY ORDERABLES Final Res ult * COMPREHENSIVE METABOLIC PANEL (02/13/2025 10:38 AM CDT) Only the most recent of2 resultswithin the time period is included. Blood us Tank Waldrop MD CHEMISTRY ORDERABLES Final Resu lt * CBC MIXED CELL DIFFERENTIAL (01/23/2025 9:41 AM CDT) Blood us Tank Waldrop MD HEMATOLOGY ORDERABLES Final Res ult from Last 3 Months Insurance MEDICARE PART A AND B [facility] [id number] [place] [id number]
--- OUTSIDE RECORDS SUMMARY | 2025-03-04 13:29 | XMS_ITS | Encounter Summary ---
Author Organization [facility] Healthcare Address [address] [place] [address] Care Team Providers Care Adolescent Medicine Specialist Name Role Phone Antonio Rose MD Primary Care Provider [phone] Winsome Garcia MD Primary Care Pro vider Encounter Details Date Type Department Care Team (Latest Contact Info) Description 07/23/2019 Ophth Exam Ophthalmology Poncho Singleton MD [address] [place] [address] Social History Tobacco Use Types Packs/Day Years Used Date Smoking Tobacco: Never Sex and Gender Information Value Date Recorded Sex Assigned at Not on file Legal Sex Male 9:49 AM INCIDENT RESPONSE LEAD Gender Identity Not on file Sexual Orientation [...] with surrounding laser CRS temporally Care Teams Adolescent Medicine Specialist Relationship Specialty Start Date End Date Antonio Rose MD [address] [place] [address] PCP - General 01/10/18 11/15/21 Winsome Garcia MD [address] [place] [address] PCP - General Family Medicine 11/16/21 documented as of this encounter
--- OUTSIDE RECORDS SUMMARY | 2025-03-04 13:29 | XMS_ITS | Encounter Summary ---
Author Organization [facility] Address [address] [facility] [place] [address] Care Team Providers Care Movement Education Specialist Name Role Phone Antonio Rose MD Primary Care Provider [phone] Encounter Details Date Type Department Care Team (Late st Contact Info) Description 08/13/2020 Lab Requisition [facility] DermPath Lab [address] [facility] [place] [address] Ha Le MD [address] [place] [address] Social History Tobacco Use Types Packs/Day Years Used Date Smoking Tobacco: Never Assessed Sex and Gender Information Value Date Recorded Sex Assigned at Not on file Legal Sex Male 3:53 PM BULK FOLDER Gender Identity Not on file Sexual Orientation Not on file documented as of this encounter Plan of Treatment Not on file documented as of this encounter Procedures Procedure Name Priority Date/Time Associated Diagnosis Comments DERMATOPATHOLOGY Routine 08/11/2020 12:0 0 AM BULK FOLDER documented in this encounter Results * DERMATOPATHOLOGY (08/11/2020 12:00 AM BULK FOLDER) Case Report Dermatopathology Report Case: [id number] Authorizing Provider: Ha Le MD Collected: 08/11/2020 12:00 AM Ordering Location: [facility] Derm[facility] Lab Received: 08/13/2020 06:12 AM Pathologist: Reina Mario MD Specimens: A) - Skin, right ala B) - Skin, right medial clavicle 0 4:47 PM BULK FOLDER DERMATOPATHOLOGY LABORATORY Final Diagnosis Specimen A. SKIN, right ala: HYPERPLASTIC (HYPERTROPHIC) ACTINIC KERATOSIS WITH ASSOCIATED HUMAN PAPILLOMA VIRUS CHANGES; EXTENDING TO THE BASE OF THE SPECIMEN (L57.0) (see microscopic description and comment) Specimen B. SKIN, right medial clavicle: BASAL CELL CARCINOMA, NODULAR TYPE (C44.519) 0 4:47 PM [facility] DERMATOPATHOLOGY LABORATORY at [address] Clinical History A: Basal cell carcinoma vs squamous cell carcinoma vs other. Path # [id number]. B: Basal cell carcinoma vs squamou scell carcinoma vs other. Path # [id number] 0 4:47 PM [facility] DERMATOPATHOLOGY LABORATORY Gross Description Specimen A: Received is one formalin filled container labeled with the patient's name and designated right ala. The specimen consists of a shave biopsy measuring [id number]. Jar 0. Specimen B: Received is one formalin filled container labeled with the patient's name and designated right medial clavicle. The specimen consists of a shave biopsy measuring [id number]. Jar 0. 0 4:47 PM [facility] DERMATOPATHOLOGY LABORATORY Microscopic Description Specimen A. [...] ratio and peripheral palisading. 0 4:47 PM [facility] DERMATOPATHOLOGY LABORATORY Disclaimer An external and internal positive and negative controls are appropriate for the histochemical, immunohistochemical and immunofluorescence stain(s) in this case (if any), except where stated explicitly. The performance characteristics of the stain(s) cited in this report were developed and its performance characteristic determined by the Dermatopathology Laboratory at [facility], directed by Dr. Ismael Mario. These tests need not be, and therefore are not, approved by the [place] Food and Drug Administration. The tests are used for clinical purposes. Billing Codes Specimen Charges Stain Charges 08449 [id number] 1 1 0 4:47 PM [facility] DERMATOPATHOLOGY LABORATORY Embedded Images 0 4:47 PM BULK FOLDER DERMATOPATHOLOGY LABORATORY Pathology/Cytology TISSUE SPECIMEN FROM SKIN / Unknown 08/11/2020 08/13/2020 6:12 AM BULK FOLDER Miscellaneous samples (specimen) TISSUE SPECIMEN FROM SKIN / Unknown 08/11/2020 08/13/2020 6:12 AM BULK FOLDER Ha Le MD LAB - PATHOLOGY/CYTOLOGY ORDER TENA Final Result DERMATOPATHOLOGY LABORATORY [facility] - Department of Dermatology [facility] [address] [place] [address], [address] [phone] documented in this encounter Visit Diagnoses Not on filedocumented in this encounter Care Teams Movement Education Specialist Relationship Specialty Start Date End Date Antonio Rose MD [address] [place] [address] PCP - General 08/12/20 documented as of this encounter
--- OUTSIDE RECORDS SUMMARY | 2025-03-04 13:29 | XMS_ITS | Encounter Summary ---
Author Organization [facility] Address [address] [place] [address] Care Team Providers Care Joint Cutter Machine Name Role Phone Unavailable Primary Care Provider Unavailabl e Encounter Details Date Type Department Care Team ([facility] [place] Contact Info) Description 03/04/[address] 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 Oncology and Hematology [facility] [address] [place] [address] Tank Waldrop MD [address] [place] [address] [address] [place] [phone] documented as of this encounter Procedures Procedure Name Priority Date/Time Associated Diagnosis Comments BASIC METABOLIC PANEL Routine 03/04/2025 12:32 PM CDT CBC WITH AUTODIFFERENTIAL Routine 2024 12:28 PM CDT documented in this encounter Results * BASIC METABOLIC PANEL (03/04/2025 12:32 PM CDT) Blood us Tank Waldrop MD CHEMISTRY ORDERABLES Final Resu lt * CBC WITH AUTODIFFERENTIAL (03/04/2025 12:28 PM CDT) Blood us Tank Waldrop MD HEMATOLOGY ORDERABLES Final Res ult documented in this encounter Visit Diagnoses Diagnosis Prostate cancer (CMS/HCC) Malignant neoplasm of prostate documented in this encounter
--- OUTSIDE RECORDS SUMMARY | 2025-03-04 13:29 | XMS_ITS | Encounter Summary ---
Author Organization [facility] Address [address] [place] [address] Care Team Providers Care Double End Chucking Machine Operator Name Role Phone Unavailable Primary Care Provider Unavailabl e Reason for Visit * Reason Comments Chemotherapy Follow Up Encounter Details Date Type Department Care Team (Late st Contact Info) Description 03/04/2025 11:15 AM CDT Office Visit [facility] Oncology and Hematology - [place] [address] [facility] [address] [place] [address] Tank Waldrop MD [address] [facility] [address] [place] [address] Prostate cancer (CMS/HCC) (Primary Dx) Social History Tobacco Use Types Packs/Day Years Used Date Smoking Tobacco: Never Smokeless Tobacco: Never Alcohol Use Standard Drinks/Week Comments Yes 0 (1 standard drink = 0.6 oz pur e alcohol) Occasionally Sex and Gender Information Value Date Recorded Sex Assigned at Not on file 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 Gender Identity Not on file Sexual Orientation Not on file documented as of this encounter Last Filed Vital Signs Vital Sign Reading Time Taken Comments Blood Pressure 139/80 03/04/2025 10:41 AM CDT Pulse 97 03/04/2025 10:39 AM CDT Temperature 36.4 C (97.5 F) 03/04/2025 10:39 AM CDT Respiratory Rate 15 03/04/2025 10:39 AM CDT Oxygen Saturation 97% 03/04/2025 10:39 AM CDT Inhaled Oxygen Concentration - - Weight 81.6 kg (180 lb) 03/04/2025 10:39 AM CDT Height - - Body Mass Index 24.41 12/12/2024 10:29 AM CDT documented in this encounter Progress Notes * Tank Waldrop MD - 03/04/2025 11:02 AM CDT HEMATOLOGY / ONCOLOGY PROGRESS NOTE Patient Identification: Name: Valente Lozano Age: 69 y.o. Sex: male : 1955 DIAGNOSIS Metastatic prostate cancer with bone involvement CURRENT TREATMENT Chemotherapy with Taxotere started on January 02, 2025 Monthly Xgeva Nubeqa started November 13, [address] Lo's office TREATMENT HISTORY SUBJECTIVE Patient came into the office for follow-up visit after being discharged from the hospital on February 24, 2025. Patient was admitted to the hospital with a left foot infection and cellulitis. He received antibiotic treatment. He was also neutropenic. Patient was discharged home on clindamycin that he finished yesterday. Patient is complaining of redness and infection of the left chest wall Mediport. He denies any fevers and chills. No other new complaints. Review of system Constitutional: Patient did not mention fevers, sweats, complain of tiredness and fatigue, weight and appetite stable HEENT: Patient did not mention sinus congestion, hearing or vision problems Respiratory: Patient did not mention cough, dyspnea, wheeze Cardiovascular: Patient did not mention chest pain, exertional chest pressure/discomfort, nausea, syncope, shortness of breath GI: Patient did not mention constipation, diarrhea, dsyphagia, reflux symptoms, vomiting, melena : Patient did not mention dysuria, frequency, incontinence, urgency Integumentary system: no lymphadenopathy, sweats, flushing Musculoskeletal: Patient not mention: myalgia, arthralgia Neurological: Patient did not mention blurry or disturbed vision, numbness/weakness, dizziness Skin: No lumps, bumps or rashes. 12 point review of system was reviewed Objective: Vital signs in last 24 hours: As per nursing note Exam: General appearance: alert, cooperative, no distress, appears stated age Head: normocephalic, without obvious abnormality, atraumatic Eyes: conjunctivae/corneas clear, EOM's intact Ears: normal external ear canals AU Nose: Nares normal. Septum midline. Mucosa normal. No drainage or sinus tenderness Throat: Lips, mucosa, and tongue normal. Teeth and gums normal Neck: supple, symmetrical, trachea midline. Lungs: clear to auscultation bilaterally Heart: regular rate and rhythm, S1, S2 normal, no murmur, click, rub or gallop Abdomen: soft, non-tender. Bowel sounds normal. No masses, No organomegaly Extremities: extremities normal, atraumatic, there is area of cellulitis in the left foot with redness Skin: Skin color, texture, turgor normal. No rashes or lesions Lymph nodes: No lymphadenopathy Neuro: No obvious focal deficit Left-sided Mediport showed oozing of pussy material upon removing the bandage Exam as above [facility] LAB[facility] Labs from January 23 show WBC 16.3 hemoglobin 14.1 platelet 279,000 creatinine 1.0 Labs from February 13 showed creatinine 0.9 WBC 15.1 hemoglobin 13.5 platelet 248,000 Labs from March 04 showed WBC 10.4 hemoglobin 10.6 platelet 331,000 creatinine 0.9 Assessment: Plan: There are no active problems to display for this patient. Metastatic prostate cancer with bone involvement. He was diagnosed with early- stage prostate cancerin May 2019 and was kept under surveillance until 2022 when his PSA started rising. He received radiation therapy treatments and then received Orgovyx in March 2023. PET PSMA done in 2024 showed multiple bone metastasis. Nubeqa started in October 2024. Patient received Firmagon injection also at that same time by Dr. Lo's office. Patient started chemotherapy with Taxotere on every 3-week basis on January 02, 2025. Events noted. Patient was treated for left foot infection and completed course of clindamycin just yesterday. He is having infection of the left side of my report. I have discussed this with Dr. Jerome on the phone today. He will be sent to Dr. Jerome office right now for evaluation and likely Mediport removal. I will hold chemotherapy with Taxotere along with Nubeqa and prednisone until evaluated by me in 1 week. Bone metastasis. Patient is asymptomatic on Xgeva and vitamin D. Chemotherapy-induced nausea. He is on Zofran. Follow-up in 1 week. 03/04/2025 Tank Waldrop MD documented in this encounter Plan of Treatment Upcoming Encounters Date Type Department Care Team (Late st Contact Info) Description 03/11/2025 8:45 AM CDT Office Visit [facility] [place] Oncology and Hematology [facility] [address] [facility] [address] [place] [address] Tank Waldrop MD [address] [facility] [address] [place] [address] documented as of this encounter Visit Diagnoses Diagnosis Prostate cancer (CMS/HCC)- Primary Malignant neoplasm of prostate documented in this encounter
--- OUTSIDE RECORDS SUMMARY | 2025-03-04 13:29 | XMS_ITS | Clinical Summary ---
Author Organization [facility] Address [address] [place] [address] Care Team Providers Care Opera Singer Name Role Phone Winsome Garcia MD Primary [...] reviewed Reviewed medications and supplements Specialists: urology, manager pool, & optho no evidence of cognitive impairment HCM: orders placed as needed Assessment & Plan (06/03/2023 8:46 AM CDT): Reviewed PMH & FH PHQ Screening PHQ-2 Total Score (If total score is 3 or more points, staff should administer the PHQ-9): 0 Hearing/vision screening reviewed, referrals placed as needed Fall risk reviewed Reviewed medications and supplements Specialists: urology, radiation oncology, manager pool, & optho no evidence of cognitive impairment HCM: orders placed as needed Assessment & Plan (05/17/2022 1:28 PM CDT): Reviewed [facility] & PHQ Screening PHQ-2 Total Score (If total score is 3 or more points, staff should administer the PHQ-9): 0 Hearing/vision screening reviewed, referrals placed as needed Fall risk reviewed Reviewed medications and supplements Specialists: urology, manager pool, orthopedics & optho no evidence of cognitive impairment HCM: orders placed as needed Elevated glucose 11/17/2021 Assessment & Plan (06/03/2023 8:39 AM CDT): stable Assessment & Plan (11/26/2022 3:26 PM FAMILY AND CONSUMER SCIENCE PROFESSOR): Rechekc a1c Assessment & Plan (05/17/2022 12:59 PM CDT): Lab Results Component Value Date HGBA1C 5.7 (H) 05/11/2022 Improved Continue to monitor History of vitreous hemorrhage of right eye 01/2019 Assessment & Plan (07/31/2019 12:35 PM FAMILY AND CONSUMER SCIENCE PROFESSOR): F/u from ED on 07/23/19. Slowly improving though still dense vitreous (vit) heme centrally - vision stable from last visit - superotemporal tear with adequate laser surrounding, no subretinal fluid around tear or retinal detachment - recommend follow-up in 4 weeks to assess how vitreous (vit) heme is settling - pt has scheduled appointment with refrigeration engineering teacher in early August (about one month). Plans [...] statin Assessment & Plan (11/26/2022 5:15 PM FAMILY AND CONSUMER SCIENCE PROFESSOR): Recheck lipids Continue statin pending results Discussed diet Assessment & Plan (05/17/2022 12:58 PM CDT): Reviewed lipids, LDL mildly above goal Discussed diet/exercise Continue simvastatin Continue to monitor Assessment & Plan (11/17/2021 1:39 PM FAMILY AND CONSUMER SCIENCE PROFESSOR): Lipids at goal LFT within normal limits [...] oncology Assessment & Plan (11/26/2022 3:27 PM FAMILY AND CONSUMER SCIENCE PROFESSOR): Following with urology Assessment & Plan (05/17/2022 12:57 PM CDT): Following with urology Assessment & Plan (11/17/2021 1:36 PM FAMILY AND CONSUMER SCIENCE PROFESSOR): Following with urology Arthritis of big toe Assessment & Plan (01/02/2024 1:52 PM CDT): stable Assessment & Plan (06/03/2023 8:46 AM CDT): stable Assessment & Plan (11/26/2022 3:26 PM FAMILY AND CONSUMER SCIENCE PROFESSOR): Following with orthopedics Assessment & Plan (05/17/2022 12:58 PM CDT): Following with orthopedics Assessment & Plan (11/17/2021 1:37 PM FAMILY AND CONSUMER SCIENCE PROFESSOR): Stable Following with orthopedics History of skin cancer Assessment & Plan (01/08/2025 11:13 AM CDT): Following with manager pool Assessment & Plan (07/10/2024 1:13 PM CDT): Following with manager pool Assessment & Plan (01/02/2024 1:52 PM CDT): Following with manager pool Assessment & Plan (06/03/2023 8:39 AM CDT): Following with manager pool Assessment & Plan (11/26/2022 3:26 PM FAMILY AND CONSUMER SCIENCE PROFESSOR): Following with manager pool Assessment & Plan (05/17/2022 12:57 PM CDT): Following with manager pool Assessment & Plan (11/17/2021 1:37 PM FAMILY AND CONSUMER SCIENCE PROFESSOR): Following with derm Resolved Problems Problem Noted Date Diagnosed Date Resolved Date Subdural hematoma (CMS/HCC) 11/22/2011 11/16/2021 Encounters Date Type Department Care Team Description 01/08/2025 11:15 AM CDT Office Visit [facility] Primary Care at [address] [place] [address] Winsome Garcia MD Pre-diabetes (Primary Dx); Mixed hyperlipidemia; Prostate cancer (HCC); Metastasis to bone (HCC); History of skin cancer; Bilateral impacted cerumen; Encounter for annual wellness visit (AWV) in Medicare patient; Vitamin D deficiency 01/01/2025 7:10 AM CDT Lab [facility] Office Building [address] [place] [id number] Mixed hyperlipidemia; Pre-diabetes 01/01/2025 Results Follow-Up [facility] Family Medicine [address] [address] Winsome Garcia MD Lipid panel, Comprehensive metabolic panel, Hemoglobin A1c, eGFR 12/31/2024 Telephone [facility] Medical [facility] Primary Care at [address] [place] [address] Winsome Garcia MD Medical Question/Miscellaneou [...] on file Legal Sex Male 9:49 AM FAMILY AND CONSUMER SCIENCE PROFESSOR Gender Identity Not on file Sexual Orientation [...] Results * eGFR (01/01/2025 7:15 AM CDT) [facility] eGFR 81 >=60 mL/min/1. 73 m2 Comment: [...] was last reviewed 2021. Testing performed by: [address] [id number] Blood 01/01/2025 7:15 AM CDT 01/01/2025 9:40 AM CDT us Wnisome Garcia MD LAB BLOOD ORDERAB LES Final Result JOSEPH [address] [facility] Department [place] [address] * (ABNORMAL) Hemoglobin A1c (01/01/2025 7:15 AM CDT) Hgb A1C 6.3(H) 4.0 - 5.6 % Comment:Testing performed by : [address] [address] Estimated Average Glucose 134 mg/dL JOSEPH VICK Comment: The ADA recommends reporting an estimated Average Glucose (eAG) with all Hemoglobin A1c results using the equation derived from a study of 507 normal and diabetic adults. Minority populations were underrepresented and children were not included. (Diabetes Care 31:0735-0387, 2008). The eAG is not equivalent to a fasting glucose. Testing performed by: [address] [address] Blood 01/01/2025 7:15 AM CDT 01/01/2025 9:42 AM CDT us Winsome Garcia MD LAB BLOOD ORDERAB LES Final Result JO[facility]PH VICK [address] [facility] Department [place] [address] * Lipid panel (01/01/2025 7:15 AM CDT) [...] last revised on 2018. Testing performed by: [address] [address] Triglycerides 132 <=149 mg/dL JOSEPH Comment: Interpretive [...] last revised on 2018. Testing performed by: [address] [address] HDL 60 >=40 mg/dL JOSEPH Comment: Interpretive [...] last revised on 2018. Testing performed by: [address] [address] LDL, calculated 93 <=129 mg/dL JOSEPH Comment: [...] last revised on 2024. Testing performed by: [address] [address] Non-HDL Cholesterol 116 mg/dL JOSEPH Comment: Interpretive [...] last revised on 2018. Testing performed by: [address] [address] Chol/HDL ratio 3 JOSEPH Comment:Testing performed by : [address] [address] Blood 01/01/2025 7:15 AM CDT 01/01/2025 9:40 AM CDT us Winsome Garcia MD LAB BLOOD ORDERAB LES Final Result [facility] Department [place] [address] * Comprehensive metabolic panel (01/01/2025 7:15 AM CDT) Sodium 138 135 - 145 mmol/L Comment:Testing performed by : [address] [address] Potassium, pl 4.6 3.3 - 4.9 mmol/L JOSEPH Comment:Testing performed by : [address] [address] Chloride 103 97 - 110 mmol/L JOSEPH Comment:Testing performed by : [address] [address] CO2 26 22 - 32 mmol/L JOSEPH Comment:Testing performed by : [address] [address] Anion gap 9 2 - 15 mmol/L JOSEPH Comment:Testing performed by : [address] [address] BUN 17 6 - 25 mg/dL JOSEPH Comment:Testing performed by : [address] [address] Creatinine 1.00 0.80 - 1.30 mg/dL JOSEPH Comment:Testing performed by : [address] [address] Glucose 128 70 - 199 mg/dL JOSEPH [...] was last revised 2022. Testing performed by: [address] [address] Calcium 9.0 8.5 - 10.3 mg/dL JOSEPH Comment:Testing performed by : [address] [address] Bilirubin, total 0.6 0.1 - 1.2 mg/dL JOSEPH Comment:Testing performed by : [address] [address] Protein, pl 7.2 6.5 - 8.5 g/dL JOSEPH Comment:Testing performed by : [address] [address] Albumin 4.1 3.5 - 5.0 g/dL JOSEPH Comment:Testing performed by : [address] [address] Alk phos 82 40 - 130 Units/L JOSEPH Comment:Testing performed by : [address] [address] ALT 20 7 - 55 Units/L JOSEPH Comment:Testing performed by : [address] [address] AST 18 10 - 50 Units/L JOSEPH Comment:Testing performed by : [address] [address] Blood 01/01/2025 7:15 AM CDT 01/01/2025 9:40 AM CDT us Winsome Garcia MD LAB BLOOD ORDERAB LES Final Result JOSEPH [address] [facility] Department of Laboratories [place], [place] [phone] * Hepatitis C antibody Blood (07/04/2024 7:16 [...] MICROBIOLOGY - GENERAL ORDERABLES Final Result CERNER [address] [facility] [place] [address] * HM COLONOSCOPY (02/16/2024) Greta Joseph MD HEALTH MAINTENANCE Final Result from Last 3 Months or Most Recently Relevant to Health Maintenance Insurance MEDICARE [facility] MEDICARE [facility] MEDICARE [facility] Care Teams Opera Singer Relationship Specialty Start Date End Date Winsome Garcia MD PCP - General Family Medicine 11/16/21
--- OUTSIDE RECORDS SUMMARY | 2025-03-04 13:29 | XMS_ITS | Encounter Summary ---
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
--- NOTE | 2025-03-04 13:57 | SUR.PHASEII ---
1330: ready for dc. Family and patient talking in room.
== END 2025-03-04 13:50 | disposition home or self-care (01) ==
PROVIDERS: PCP Hospitalist; Visit Provider Surgery
PROC: (CPT 36589; principal; 2025-03-04 14:00)
DX: T80.219A Unspecified infection due to central venous catheter, initial encounter (principal); Y83.8 Other surgical procedures as the cause of abnormal reaction of the patient, or of later complication, without mention of misadventure at the time of the procedure; C61 Malignant neoplasm of prostate
CPT/HCPCS: 36590